=== PATIENT | male | born 1955 | race Caucasian/White ===

== ENCOUNTER 2018-04-04 11:06 | Observation (INO) | payer MEDICARE ==
[2018-04-04 14:03] LABS: Hematocrit 38.6 % (42-50); Hemoglobin 12.7 gm/dl (12.5-18.0); Mean Cell Volume 90.2 fl (78-100); Mean Corpuscular Hemoglobin 29.7 pg (26-32); Mean Corpuscular Hgb Concent. 32.9 g/dl (32-36); Mean Platelet Volume 10.2 fl (6-9.5); Platelet Count 238 K/mm3 (150-450); Red Blood Count 4.28 M/mm3 (4.1-5.6); White Blood Count 8.5 K/mm3 (4.0-10.5)
[2018-04-04] MEDS: PROVENTIL 2.5 MG/3 ML NEB IH SCH ×2 (14:04→19:43)
--- NOTE | 2018-04-04 14:12 | XRAY ---
Indication: COPD. Comparison: October 08, 2015. PA/lateral chest again hyperinflated without focal infiltrate, consolidation, or large effusion. Heart is not enlarged again with CABG surgery. Bony thorax intact again with mild degenerative changes. Impression: Stable nonacute hyperinflated chest with chronic features.
[2018-04-04 14:47] LABS: ALBUMIN 4.4 g/dL (3.5-5.0); ANION GAP 13.2 MEQ/L (5-15); BILIRUBIN,TOTAL 0.5 mg/dL (0.2-1.3); Calcium 9.1 mg/dL (8.4-10.2); Creatinine 1 1.4 mg/dL (0.66-1.25); Potassium 4.1 mmol/L (3.5-5.1); Total Protein 7.1 g/dL (6.3-8.2)
[2018-04-04] MEDS ORDERED: Sodium Chloride 0.9% 1000 ML 1,000 ML IV SCH (15:30)
[2018-04-04] MEDS ORDERED: NovoLOG Insulin SQ PRN (15:30)
--- NOTE | 2018-04-04 15:34 | PCM.HP.ADD ---
Addendum to History & Physical - History & Physical Addendum Addendum to History & Physical: This certifies that the History & Physical in the electronic chart reflects the current health status of the patient. If there are changes in the H&P these changes/exceptions are listed as follows.
[2018-04-04] MEDS: ENOXAPARIN SODIUM SQ SCH (15:57)
[2018-04-04] MEDS: Levaquin 250MG/50ML D5W 250 MG/50 ML BAG IV SCH (15:57)
[2018-04-04] MEDS ORDERED: Nitrostat 0.4 MG Tablet SL PRN (16:45)
[2018-04-04] MEDS ORDERED: MEDICATION INTERVENTION MC SCH (17:00)
[2018-04-04] MEDS ORDERED: MEDICATION INTERVENTION PO SCH (17:00)
[2018-04-04] MEDS: DUONEB 0.5-3 MG/3 ml Neb IH SCH (19:47)
[2018-04-04] MEDS: solu-MEDROL 40 MG IV SCH (21:13)
[2018-04-04] MEDS: Ranexa 500 MG PO SCH (21:13)
[2018-04-04] MEDS ORDERED: NON-FORMULARY ITEM (Ticagrelor [Brilinta] 90 MG) PO SCH (22:00)
[2018-04-05] MEDS: PROVENTIL 2.5 MG/3 ML NEB IH SCH ×2 (01:13→07:35)
[2018-04-05] MEDS: DUONEB 0.5-3 MG/3 ml Neb IH SCH (01:25)
[2018-04-05] MEDS: solu-MEDROL 40 MG IV SCH (09:05)
[2018-04-05] MEDS: Ranexa 500 MG PO SCH (09:05)
[2018-04-05] MEDS: ENOXAPARIN SODIUM SQ SCH (09:07)
[2018-04-05] MEDS: Levaquin 250MG/50ML D5W 250 MG/50 ML BAG IV SCH (09:07)
[2018-04-05] MEDS ORDERED: Imdur 30 MG PO SCH (10:00)
[2018-04-05] MEDS ORDERED: ZOCOR 20MG PO SCH (10:00)
[2018-04-05] MEDS ORDERED: NON-FORMULARY ITEM (Lisinopril [Zestril] 40 MG) PO SCH (10:00)
[2018-04-05] MEDS ORDERED: Tricor 145 MG PO SCH (10:00)
[2018-04-05] MEDS ORDERED: FENOFIBRATE 50 MG PO SCH (10:00)
[2018-04-05] MEDS ORDERED: ECOTRIN 81 MG PO SCH (10:00)
[2018-04-05] MEDS ORDERED: NON-FORMULARY ITEM (Umeclidinium Brm/Vilanterol Tr [Anoro Ellipta 62.5-25 Mcg Inh] 1 EACH) IH SCH (10:00)
[2018-04-05] MEDS ORDERED: NON-FORMULARY ITEM (Amlodipine Besylate 10 Mg [Norvasc 10 Mg] 10 MG) PO SCH (10:00)
[2018-04-05] MEDS ORDERED: Zestril 20 MG PO SCH (10:00)
[2018-04-05] MEDS ORDERED: NORVASC 5 MG PO SCH (10:00)
[2018-04-05] MEDS ORDERED: NON-FORMULARY ITEM (Aspirin [Aspirin] 81 MG) PO SCH (10:00)
[2018-04-05] MEDS ORDERED: LASIX 20 MG PO SCH (10:00)
[2018-04-05] MEDS ORDERED: NON-FORMULARY ITEM (Atorvastatin Calcium [Lipitor] 80 MG) PO SCH (10:00)
[2018-04-05] MEDS ORDERED: ZOLOFT 50 MG TABLET PO SCH (10:00)
[2018-04-05 11:30] VITALS: BP 151/68; PULSE 73; O2SAT 95
--- NOTE | 2018-04-05 18:00 | PCM.SSS ---
History of Present Illness - Chief Complaint Chief Complaint: worsening shortness of breath for 2 days History of Present Illness: is a 63 year old male.admitted with worsening shortness of breath and wheezing for 1-2 days. - Review of Systems Constitutional: No Fever, No Chills Eyes: No Symptoms Ears, Nose, & Throat: No Symptoms Respiratory: Cough, Orthopnea, Short Of Breath, Wheezing Cardiac: No Chest Pain, No Edema, No Syncope Abdominal/Gastrointestinal: No Abdominal Pain, No Nausea, No Vomiting, No Diarrhea Genitourinary Symptoms: No Dysuria Musculoskeletal: No Back Pain, No Neck Pain Skin: No Rash Neurological: No Dizziness, No Focal Weakness, No Sensory Changes Psychological: No Symptoms Endocrine: No Symptoms Hematologic/Lymphatic: No Symptoms Immunological/Allergic: No Symptoms Medications & Allergies Home Medications: Home Medication List Amlodipine Besylate 10 mg [Norvasc 10 MG] 10 mg PO DAILY 10/08/15 [History Confirmed 04/04/18] Isosorbide Mononitrate 30 mg [Imdur 30 MG] 30 mg PO DAILY 10/08/15 [ History Confirmed 04/04/18] Aspirin 81 mg PO DAILY 10/09/15 [History Confirmed 04/04/18] Atorvastatin Calcium [Lipitor] 80 mg PO DAILY 10/09/15 [History Confirmed ] Lisinopril [Zestril] 40 mg PO DAILY 10/09/15 [History Confirmed 04/04/18] Nitroglycerin [Nitrostat] 0.4 mg SL UD 10/09/15 [History Confirmed 04/04/18] Albuterol 2.5 mg/0.5 ml [PROVENTIL Solution 2.5 MG/0.5 ML] 2.5 mg IH Q12H PRN PRN 04/04/18 [History Confirmed 04/04/18] Fenofibrate 50 mg PO DAILY 04/04/18 [History Confirmed 04/04/18] Furosemide 20 mg [Lasix 20 mg] 20 mg PO DAILY 04/04/18 [History Confirmed 04/04/18] Ranolazine 500 MG [Ranexa 500 MG] 500 mg PO BID 04/04/18 [History Confirmed 04/04/18] Sertraline HCl 50 mg [Zoloft 50 mg Tablet] 50 mg PO DAILY 04/04/18 [History Confirmed 04/04/18] Ticagrelor [Brilinta] 90 mg PO BID 04/04/18 [History Confirmed 04/04/18] Umeclidinium Brm/Vilanterol Tr [Anoro Ellipta 62.5-25 Mcg INH] 1 each IH DAILY 04/04/18 [History Confirmed 04/04/18] Blood Sugar Diagnostic [Test Strips] 1 each MC DAILY #30 strip 04/05/18 [Rx] Blood-Glucose Meter, Drum-Type [Accu-Chek] 1 each MC DAILY #1 kit 04/05/18 [Rx] Lancets 1 each MC DAILY #30 each 04/05/18 [Rx] Levofloxacin [Levaquin] 250 mg PO DAILY #5 tablet 04/05/18 [Rx] Metformin HCl [Metformin HCl ER] 500 mg PO DAILY #30 tab.er.24 04/05/18 [Rx] Methylprednisolone Packet [Medrol Dosepack] 4 mg PO UD #30 packet [Rx] Allergies/Adverse Reactions: Allergies Allergy/AdvReac Type Severity Reaction Status Date / Time ceftriaxone [From Rocephin] Allergy Severe Anaphylactic Verified 04/04/18 13:32 Reaction Penicillins Allergy Unknown Verified 10/08/15 16:01 - Past Medical History Past Medical History: No Neurological History: No Pertinent History ENT History: No Pertinent History Cardiac History: Congestive Heart Failure, Coronary Artery Disease Respiratory History: CHF, COPD Endocrine Medical History: No Pertinent History, Diabetes Type II Musculoskelatal History: No Pertinent History GI Medical History: No Pertinent History History: No Pertinent History Pyscho-Social History: Anxiety, Depression Male Reproductive Disorders: No Pertinent History - Past Surgical History Past Surgical History: Yes (heart surgery 2006) Neuro Surgical History: No Pertinent History Cardiac History: No Pertinent History Respiratory Surgery: No Pertinent History GI Surgical History: No Pertinent History Genitourinary Surgical Hx: No Pertinent History Musculskeletal Surgical Hx: No Pertinent History Male Surgical History: No Pertinent History Other Surgical History: stents in both legs - Social History Smoking Status: Former smoker How long have you smoked: 40 years Exposure to second hand smoke: Yes Alcohol: None Drug Use: none - Physical Exam Vital Signs: Vital Signs - 24 hr Temp Pulse Resp BP Pulse Ox 04/05/18 12:00 18 04/05/18 11:28 98.2 F 73 18 151/68 95 04/05/18 08:00 18 04/05/18 07:35 67 18 94 L 04/05/18 07:10 97.9 F 67 18 150/72 94 L 04/05/18 04:00 98.4 F 71 24 142/63 94 L 04/05/18 03:57 24 04/05/18 01:13 68 16 90 L 04/05/18 00:00 98.6 F 76 20 149/77 93 L 04/04/18 20:00 97.9 F 66 20 144/72 97 04/04/18 19:43 66 18 96 Oxygen-Last 24 hours O2 Percentage 2 Liters = 28% General Appearance: no apparent distress, alert Neurologic Exam: alert, oriented x 3, cooperative, normal mood/affect, nml cerebellar function, nml station & gait, sensation nml, No motor deficits Eye Exam: PERRL/EOMI, eyes nml inspection Ears, Nose, Throat Exam: normal ENT inspection, TMs normal, pharynx normal, moist mucous membranes Neck Exam: normal inspection, non-tender, supple, full range of motion Respiratory Exam: respiratory distress, crackles/rales, rhonchi, wheezing Cardiovascular Exam: regular rate/rhythm, normal heart sounds, normal peripheral pulses Gastrointestinal/Abdomen Exam: soft, normal bowel sounds, No tenderness, No mass Back Exam: normal inspection, normal range of motion, No CVA tenderness, No vertebral tenderness Extremity Exam: normal inspection, normal range of motion, pelvis stable Skin Exam: normal color, warm, dry, No rash Lymphatic Exam: No adenopathy Results - Labs Lab/Micro Results: Accuchecks Date 04/05/18 Date 04/05/18 Date 04/04/18 Time 11:30 Time 07:30 Time 21:30 Accucheck Value: 229 Accucheck Value: 201 Accucheck Value: 173 Accuchecks Date 04/05/18 Date 04/05/18 Date 04/04/18 Time 11:30 Time 07:30 Time 21:30 Accucheck Value: 229 Accucheck Value: 201 Accucheck Value: 173 - Radiology Impressions Radiology Exams & Impressions: Radiology Procedures Category Date Time Status CHEST 2 VIEWS (PA AND LAT) Stat Exams 04/04/18 13:55 Completed Assessment/Plan (1) Acute exacerbation of chronic obstructive pulmonary disease (COPD) Status: Acute Assessment & Plan: Chief Complaint Diagnosis worsening shortness of breath for 2 days Allergies Allergy/AdvReac Type Severity Reaction Status Date / Time ceftriaxone [From Rocephin] Allergy Severe Anaphylactic Verified 04/04/18 13:32 Reaction Penicillins Allergy Unknown Verified 10/08/15 16:01 Vital Signs (Last 24 hours) Temp Pulse Resp BP Pulse Ox 04/05/18 12:00 18 04/05/18 11:28 98.2 F 73 18 151/68 95 04/05/18 08:00 18 04/05/18 07:35 67 18 94 L 04/05/18 07:10 97.9 F 67 18 150/72 94 L 04/05/18 04:00 98.4 F 71 24 142/63 94 L 04/05/18 03:57 24 04/05/18 01:13 68 16 90 L 04/05/18 00:00 98.6 F 76 20 149/77 93 L 04/04/18 20:00 97.9 F 66 20 144/72 97 04/04/18 19:43 66 18 96 Home Medications Medication Instructions Recorded Confirmed Last Taken Type Albuterol 2.5 mg/0.5 ml 2.5 mg IH Q12H PRN PRN 04/04/18 04/04/18 04/04/18 08: 00 History [PROVENTIL Solution 2.5 MG/0.5 ML] Fenofibrate 50 mg PO DAILY 04/04/18 04/04/18 04/04/18 08:00 History Furosemide 20 mg [Lasix 20 20 mg PO DAILY 04/04/18 04/04/18 04/04/18 08:00 History mg] Ranolazine 500 MG [Ranexa 500 500 mg PO BID 04/04/18 04/04/18 04/04/18 08:00 History MG] Sertraline HCl 50 mg [Zoloft 50 50 mg PO DAILY 04/04/18 04/04/18 04/04/18 08: 00 History mg Tablet] Ticagrelor [Brilinta] 90 mg PO BID 04/04/18 04/04/18 04/04/18 08:00 History Umeclidinium Brm/Vilanterol Tr 1 each DAILY 04/04/18 04/04/18 04/04/18 08:00 History [Anoro Ellipta 62.5-25 Mcg INH] Blood Sugar Diagnostic [Test 1 each DAILY #30 strip 04/05/18 Unknown Rx Strips] Blood-Glucose Meter, Drum-Type 1 each DAILY #1 kit 04/05/18 Unknown Rx [Accu-Chek] Lancets 1 each DAILY #30 each 04/05/18 Unknown Rx Levofloxacin [Levaquin] 250 mg PO DAILY #5 tablet 04/05/18 Unknown Rx Metformin HCl [Metformin HCl ER] 500 mg PO DAILY #30 tab.er.24 04/05/18 Unknown Rx Methylprednisolone Packet 4 mg PO UD #30 packet 04/05/18 Unknown Rx [Medrol Dosepack] Current Medications Discontinued Medications Generic Name Dose Route Start Last Admin Trade Name Coryq PRN Reason Stop Dose Admin Albuterol Sulfate 2.5 mg 04/04/18 13:00 04/05/18 07:35 Proventil 2.5 Mg/3 Ml Neb IH 05/04/18 12:59 2.5 mg Q6HRT CHINO Administration Albuterol/Ipratropium 3 ml 04/04/18 19:00 04/05/18 01:25 Duoneb 0.5-3 Mg/3 Ml Neb IH 05/04/18 18:59 Not Given Q6HRT CHINO Amlodipine Besylate 10 mg 04/05/18 10:00 04/05/18 09:06 Norvasc 5 Mg PO 05/05/18 09:59 10 mg DAILY CHINO Administration Aspirin 81 mg 04/05/18 10:00 04/05/18 09:06 Ecotrin 81 Mg PO 05/05/18 09:59 81 mg DAILY CHINO Administration Enoxaparin Sodium 40 mg 04/04/18 16:00 04/05/18 09:07 Enoxaparin Sodium SQ 05/04/18 15:59 40 mg DAILY CHINO Administration Fenofibrate 72.5 mg 04/05/18 10:00 04/05/18 09:06 Tricor 145 Mg PO 05/05/18 09:59 72.5 mg DAILY CHINO Administration Furosemide 20 mg 04/05/18 10:00 04/05/18 09:06 Lasix 20 Mg PO 05/05/18 09:59 20 mg DAILY CHINO Administration Levofloxacin/Dextrose 250 mg in 50 mls @ 50 mls/hr 04/04/18 16:00 04/05/18 09 :07 Levaquin 250mg/50ml D5w IV 05/04/18 15:59 50 mls/hr Q24H10 CHINO Administration Sodium Chloride 1,000 mls @ 50 mls/hr 04/04/18 15:30 04/04/18 15:57 Sodium Chloride 0.9% 1000 Ml IV 05/04/18 15:29 50 mls/hr .Q20H CHINO Administration Insulin Aspart 0 unit 04/04/18 15:30 Novolog Insulin SQ 05/04/18 15:29 UD PRN Accuchek Isosorbide Mononitrate 30 mg 04/05/18 10:00 04/05/18 09:06 Imdur 30 Mg PO 05/05/18 09:59 30 mg DAILY CHINO Administration Lisinopril 40 mg 04/05/18 10:00 04/05/18 09:07 Zestril 20 Mg PO 05/05/18 09:59 40 mg DAILY CHINO Administration Methylprednisolone Sodium Succinate 40 mg 04/04/18 22:00 04/05/18 09:05 Solu-Medrol 40 Mg IV 05/04/18 21:59 40 mg QID CHINO Administration Miscellaneous Information 1 each 04/04/18 17:00 Medication Intervention PO 05/04/18 16:59 .RN TO CHECK ON CHINO Miscellaneous Information 1 each 04/04/18 17:00 Medication Intervention MC 05/04/18 16:59 .RT TO CHECK ON CHINO Nitroglycerin 0.4 mg 04/04/18 16:45 Nitrostat 0.4 Mg Tablet SL 05/04/18 16:44 UD PRN Ranolazine 500 mg 04/04/18 22:00 04/05/18 09:05 Ranexa 500 Mg PO 05/04/18 21:59 500 mg BID CHINO Administration Sertraline HCl 50 mg 04/05/18 10:00 04/05/18 09:06 Zoloft 50 Mg Tablet PO 05/05/18 09:59 50 mg DAILY CHINO Administration Simvastatin 80 mg 04/05/18 10:00 04/05/18 09:06 Zocor 20mg PO 05/05/18 09:59 80 mg DAILY CHINO Administration Intake & Output (Last 24 hours) 04/03/18 04/04/18 04/05/18 04/06/18 11:59 11:59 11:59 11:59 Intake Total 2473 Balance 2473 Weight 105.3 kg Orders (Last 24 hours) Category Date Time Status Discharge Routine Discharge 04/05/18 Ordered Albuterol/Ipratropium 3ml Neb* [DUONEB 0.5-3 MG/3 ml Med 04/04/18 19:00 Discontinued Neb] 3 ml IH Q6HRT Amlodipine Besylate 5 mg [Norvasc 5 mg] Med 04/05/18 10:00 Discontinued 10 mg PO DAILY Aspirin EC 81 mg [Ecotrin 81 mg] Med 04/05/18 10:00 Discontinued 81 mg PO DAILY Fenofibrate,Micronized 145 mg* [Tricor 145 MG] Med 04/05/18 10:00 Discontinued 72.5 mg PO DAILY Furosemide 20 mg [Lasix 20 mg] Med 04/05/18 10:00 Discontinued 20 mg PO DAILY Isosorbide Mononitrate 30 mg [Imdur 30 MG] Med 04/05/18 10:00 Discontinued 30 mg PO DAILY Lisinopril 20 mg [Zestril 20 MG] Med 04/05/18 10:00 Discontinued 40 mg PO DAILY Methylprednisolone Sod Suc 40M [solu-MEDROL 40 MG] Med 04/04/18 22:00 Discontinued 40 mg IV QID Ranolazine 500 MG [Ranexa 500 MG] Med 04/04/18 22:00 Discontinued 500 mg PO BID Sertraline HCl 50 mg [Zoloft 50 mg Tablet] Med 04/05/18 10:00 Discontinued 50 mg PO DAILY Simvastatin 20Mg [Zocor 20Mg] Med 04/05/18 10:00 Discontinued 80 mg PO DAILY Patient Care Notes (Last 24 hours) 04/05/18 08:20 (created 04/05/18 15:27) Case Management Note by Olga Wills VISITED WITH PT AND REVIEWED DISCHARGE PLAN, CONTINUES TO DECLINE NEEDS FOR DISCHARGE. INDEPENDENT WITH ALL ADL'S. HAS FAMILY AT HOME TO ASSIST IF NEEDED. WILL FOLLOW FOR ALL DC NEEDS. Initialized on 04/05/18 15:27 - END OF NOTE Code(s): J44.1 - CHRONIC OBSTRUCTIVE PULMONARY DISEASE W (ACUTE) EXACERBATION (2) CAD (coronary artery disease) Status: Chronic Qualifiers: Coronary Disease-Associated Artery/Lesion type: [place] artery Code(s): I25.10 - ATHSCL HEART DISEASE OF [place] CORONARY ARTERY W/O ANG PCTRS (3) HTN (hypertension) Status: Chronic Code(s): I10 - ESSENTIAL (PRIMARY) HYPERTENSION (4) New onset type 2 diabetes mellitus Status: Acute Code(s): E11.9 - TYPE 2 DIABETES MELLITUS WITHOUT COMPLICATIONS Hospital Summary - Hospital Course Hospital Course: Last Vital Signs Temp 98.2 F 04/05/18 11:28 Pulse 73 04/05/18 11:28 Resp 18 04/05/18 12:00 BP 151/68 04/05/18 11:28 Pulse Ox 95 04/05/18 11:28 Allergies ceftriaxone [From Rocephin] Allergy (Severe, Verified 04/04/18 13:32) Anaphylactic Reaction Penicillins Allergy (Unknown, Verified 10/08/15 16:01) Intake & Output 04/05/18 04/06/18 11:59 11:59 Intake Total 2473 Balance 2473 Weight 105.3 kg Orders 04/05/18 Discharge Routine - Vitals & Intake/Output Vital Signs: Vital Signs Temperature 98.2 F 04/05/18 11:28 Pulse Rate 73 04/05/18 11:28 Respiratory Rate 18 04/05/18 12:00 Blood Pressure 151/68 04/05/18 11:28 O2 Sat by Pulse Oximetry 95 04/05/18 11:28 Oxygen-Last Documented O2 Percentage 2 Liters = 28% Intake & Output: Intake & Output 04/03/18 04/04/18 04/05/18 04/06/18 11:59 11:59 11:59 11:59 Intake Total 2473 Balance 2473 Weight 105.3 kg - Lab Result Diagrams: 04/04/18 13:50 04/04/18 13:50 Lab Results-Last 24 Hrs: Accuchecks Date 04/05/18 Date 04/05/18 Date 04/04/18 Time 11:30 Time 07:30 Time 21:30 Accucheck Value: 229 Accucheck Value: 201 Accucheck Value: 173 Micro Results-Entire Visit: Accuchecks Date 04/05/18 Date 04/05/18 Date 04/04/18 Time 11:30 Time 07:30 Time 21:30 Accucheck Value: 229 Accucheck Value: 201 Accucheck Value: 173 - Radiology Exams Ordered Rad Exams-Entire Visit: Radiology Procedures Category Date Time Status CHEST 2 VIEWS (PA AND LAT) Stat Exams 04/04/18 13:55 Completed - Procedures and Test Procedures and Tests throughout Hospitalization: Therapy Orders & Screens 04/04/18 13:00 RT Screen per Nursing Assess ONCE Comment: Protocol Order Physician Instructions: Greater than 3 points order RT Admission Screen Reason For Exam: Triggered on Admission Diagnosis: COPD exacerbation Diagnosis: COPD exacerbation Respiratory Nebulizer Q6H Comment: albuterol q6 Diagnosis: COPD exacerbation 04/04/18 14:12 Oxygen NASAL CANNULA 2 lpm Comment: Diagnosis: COPD exacerbation 04/04/18 15:30 Respiratory Therapy Consult ROUTINE Comment: Reason For Exam: Diagnosis: COPD exacerbation - Discharge Discharge Date: 04/05/18 Disposition: Home, Self-Care Condition: Good Prescriptions: New Blood-Glucose Meter, Drum-Type [Accu-Chek] 1 each DAILY #1 kit Lancets 1 each MC DAILY #30 each Levofloxacin [Levaquin] 250 mg PO DAILY #5 tablet Methylprednisolone Packet [Medrol Dosepack] 4 mg PO UD #30 packet Metformin HCl [Metformin HCl ER] 500 mg PO DAILY #30 tab.er.24 Blood Sugar Diagnostic [Test Strips] 1 each MC DAILY #30 strip Continue Amlodipine Besylate 10 mg [Norvasc 10 MG] 10 mg PO DAILY Isosorbide Mononitrate 30 mg [Imdur 30 MG] 30 mg PO DAILY Aspirin 81 mg PO DAILY Lisinopril [Zestril] 40 mg PO DAILY Atorvastatin Calcium [Lipitor] 80 mg PO DAILY Nitroglycerin [Nitrostat] 0.4 mg SL UD Ranolazine 500 MG [Ranexa 500 MG] 500 mg PO BID Umeclidinium Brm/Vilanterol Tr [Anoro Ellipta 62.5-25 Mcg INH] 1 each IH DAILY Ticagrelor [Brilinta] 90 mg PO BID Sertraline HCl 50 mg [Zoloft 50 mg Tablet] 50 mg PO DAILY Furosemide 20 mg [Lasix 20 mg] 20 mg PO DAILY Fenofibrate 50 mg PO DAILY Albuterol 2.5 mg/0.5 ml [PROVENTIL Solution 2.5 MG/0.5 ML] 2.5 mg IH Q12H PRN PRN PRN Reason: Shortness Of Breath/Wheezing Instructions: Carbohydrate Counting Diet, Blood Glucose Monitoring, Diabetes Type 2 (DC), Exacerbation of COPD (DC) Additional Instructions: MONITOR YOUR BLOOD SUGAR DAILY, TAKE AT VARIOUS TIMES OF THE DAY RECORD YOUR ACCU CHECK VALUE AND KEEP A RECORD - BRING TO YOUR FOLLOWUP APPT. Follow up with: BREANNE CORTEZ [Primary Care Provider] - 04/12/18 3:00 pm ([facility]) Forms: Discharge Instructions
== END 2018-04-05 12:25 | disposition home or self-care (01) ==
LOC: MED SURG 12:32
PROVIDERS: ADMIT General Practice; ATTEND General Practice
DX: J44.1 Chronic obstructive pulmonary disease with (acute) exacerbation (principal); I25.10 Atherosclerotic heart disease of native coronary artery without angina pectoris; I10 Essential (primary) hypertension; E11.9 Type 2 diabetes mellitus without complications; Z79.899 Other long term (current) drug therapy
CPT/HCPCS: 36415; 71046; 80053; 83036; 83880; 85027; 94150; 94640; 94760; G0378; J7609; J1650; J1956; J2920; A9270-GY

== ENCOUNTER 2018-10-18 10:13 | Emergency (ER) | payer MEDICARE ==
[2018-10-18 10:46] LABS: BASOPHIL % 0.3 % (0.0-0.4); Basophil (Absolute #) 0.02 (0-0.4); Eosinophil % 4.9 % (0.00-5.0); Eosinophil (Absolute #) 0.34 (0-0.5); Granulocytes % 62.8 % (36.0-66.0); Hematocrit 35.9 % (42-50); Hemoglobin 11.3 gm/dl (12.5-18.0); Lymphocyte (Absolute #) 1.48 (1.0-4.6); Lymphocytes % 21.1 % (24.0-44.0); Mean Cell Volume 94.7 fl (78-100); Mean Corpuscular Hemoglobin 29.8 pg (26-32); Mean Corpuscular Hgb Concent. 31.5 g/dl (32-36); Mean Platelet Volume 10.6 fl (6-9.5); Monocyte (Absolute #) 0.76 (0.0-1.3); Monocytes % 10.9 % (0.0-12.0); Platelet Count 218 K/mm3 (150-450); Red Blood Count 3.79 M/mm3 (4.1-5.6); Red Cell Distribution Width 15.9 % (11.5-14.0)
[2018-10-18 10:53] LABS: INR 1.13 (0.8-3.0); PROTIME 13.2 SECONDS (8.83-12.87)
[2018-10-18] MEDS ORDERED: Ranexa 500 MG PO STA (10:56)
--- NOTE | 2018-10-18 10:56 | XRAY ---
Indication: Chest pain. Comparison: April 04, 2018. PA/lateral chest remains hyperinflated and clear. Heart is not enlarged again with CABG surgery. Bony thorax intact again with mild degenerative changes. Impression: Stable nonacute hyperinflated chest with chronic features.
[2018-10-18 11:07] LABS: ALBUMIN 3.9 g/dL (3.5-5.0); ALKALINE PHOSPHATASE 66 U/L (38-126); ANION GAP 14.1 MEQ/L (5-15); BLOOD UREA NITROGEN 12 mg/dL (9-20); CHLORIDE 112 mmol/L (98-107); Carbon Dioxide 22 mmol/L (22-30); Creatinine 1 1.21 mg/dL (0.66-1.25); Glucose 107 mg/dL (74-106); NT PRO BNP 235 pg/mL (0-900); Potassium 3.8 mmol/L (3.5-5.1); SGOT/AST 23 U/L (17-59); SGPT/ALT 39 U/L (0-50); SODIUM 144 mmol/L (137-145); Total Protein 6.5 g/dL (6.3-8.2)
[2018-10-18] MEDS ORDERED: Effient 10 MG TABLET PO ONE (11:19)
[2018-10-18] MEDS ORDERED: Effient 10 MG TABLET ONE (11:26)
[2018-10-18] MEDS ORDERED: PROVENTIL 2.5 MG/3 ML NEB IH ONE ×2 (11:41→11:45)
--- NOTE | 2018-10-18 12:07 | XRAY ---
Indication: Short of breath. Elevated d-dimer. COPD. Multiple contiguous axial images obtained through the chest using 80 cc Isovue 370 contrast and PE protocol. Comparison: None There is satisfactory opacification of the pulmonary arteries to include the lobar and segmental branches. However respiration artifact limits evaluation of the more distal lobar and segmental branches. No central pulmonary embolus. Heart is not enlarged and demonstrates CABG surgery. Aorta demonstrates minimal calcifications without aneurysm/dissection. No pathologic mediastinal/hilar lymphadenopathy. Examination of the lung parenchyma demonstrates minimal bilateral dependent atelectasis, minimal bilateral pleural thickening, minimal scattered fibrosis/scarring, and biapical subpleural cystic changes. No suspicious pulmonary mass, infiltrate, or effusion. Bony thorax intact with mild degenerative changes throughout the spine. Limited upper abdomen including adrenal glands unremarkable. Impression: 1. Pulmonary embolus evaluation limited by respiration artifact. No large central pulmonary embolus. 2. No acute cardiopulmonary abnormalities. 3. Chronic appearing fibrosis/scarring, pleural thickening, and biapical subpleural cystic changes. CT DI 32.88
--- NOTE | 2018-10-18 15:08 | ERPHSYRPT ---
- History of Present Illness Historian: patient, family Exam Limitations: no limitations Patient Subjective Stated Complaint: CHEST PAIN SINCE LAST NIGHT. WORSE WITH TAKING A DEEP BREATH. HX CABG AND STENTS AND COPD Triage Nursing Assessment: AMBULATED TO ROOM PER SELF. SKIN W/D, COLOR NORMAL, RESP NONLABORED. HEART TONES REGULAR. BREATH SOUNDS CLEAR. Physician History: Pt is a 63 y/o male with a h/o CABG and recent angio. Per pt and , pt has a vessel that is occluded, and angio is the only option that was done for him. Pt is taking Brilinta, and Ranexa, but he is not taking ASA, secondary to the Brilinta. Pt states, he woke up with chest pain that radiated to his back. He denies palpitations, or SOB. Pt did not get any of his meds today. Timing/Duration: today Activities at Onset: none Quality: pressure Location: substernal Chest Pain Radiation: back Severity of Pain-Max: moderate Severity of Pain-Current: mild Modifying Factors: Improves With: nothing Nitro Today/Relief: no nitro taken today Aspirin Treatment Today: no aspirin today Allergies/Adverse Reactions: ceftriaxone [From Rocephin] Allergy (Severe, Verified 10/18/18 10:43) Anaphylactic Reaction Penicillins Allergy (Unknown, Verified 10/18/18 10:43) Home Medications: Isosorbide Mononitrate 30 mg [Imdur 30 MG] 60 mg PO DAILY 10/08/15 [History ] Atorvastatin Calcium [Lipitor] 80 mg PO DAILY 10/09/15 [History] Lisinopril [Zestril] 20 mg PO DAILY 10/09/15 [History] Nitroglycerin [Nitrostat] 0.4 mg SL UD 10/09/15 [History] Albuterol 2.5 mg/0.5 ml [PROVENTIL Solution 2.5 MG/0.5 ML] 2.5 mg IH Q12H PRN PRN 04/04/18 [History] Fenofibrate 50 mg PO DAILY 04/04/18 [History] Ranolazine 500 MG [Ranexa 500 MG] 500 mg PO BID 04/04/18 [History] Ticagrelor [Brilinta] 90 mg PO BID 04/04/18 [History] Umeclidinium Brm/Vilanterol Tr [Anoro Ellipta 62.5-25 Mcg INH] 1 each IH DAILY 04/04/18 [History] Apixaban [Eliquis] 5 mg PO BID 10/18/18 [History] Benzonatate [Tessalon Perle] 100 mg PO TIDPRN 10/18/18 [History] Bumetanide 1 mg [Bumex 1 mg] 2 mg PO DAILY 10/18/18 [History] Glipizide 2.5 mg [Glucotrol Xl 2.5 MG] 2.5 mg PO DAILY 10/18/18 [History] Methylprednisolone Packet [Medrol Dosepack] 5 mg PO DAILY 10/18/18 [ History] Metoprolol Succinate 100 mg [Toprol Xl 100 MG] 300 mg PO DAILY 10/18/18 [ History] Tamsulosin HCl 0.4 mg [Flomax 0.4 MG] 0.4 mg PO DAILY 10/18/18 [History] Hx Tetanus, Diphtheria Vaccination/Date Given: No Hx Influenza Vaccination/Date Given: Yes Hx Pneumococcal Vaccination/Date Given: Yes Immunizations Up to Date: Yes - Review of Systems Constitutional: No Fever, No Chills Eyes: No Symptoms Ears, Nose, & Throat: No Symptoms Respiratory: No Cough, No Dyspnea Cardiac: Chest Pain, No Edema, No Syncope Abdominal/Gastrointestinal: No Abdominal Pain, No Nausea, No Vomiting, No Diarrhea Musculoskeletal: No Back Pain, No Neck Pain - Past Medical History Pertinent Past Medical History: Yes Neurological History: No Pertinent History ENT History: No Pertinent History Cardiac History: Congestive Heart Failure, Coronary Artery Disease, High Cholesterol, Hypertension, Myocardial Infarction ([place]) Respiratory History: CHF, COPD Endocrine Medical History: No Pertinent History, Diabetes Type II Musculoskeletal History: No Pertinent History GI Medical History: No Pertinent History History: No Pertinent History Psycho-Social History: Anxiety, Depression Male Reproductive Disorders: No Pertinent History - Past Surgical History Past Surgical History: Yes (heart surgery 2005) Neuro Surgical History: No Pertinent History Cardiac: No Pertinent History, CABG, Cardiac Catheterization, Cardiac Stent Respiratory: No Pertinent History Gastrointestinal: No Pertinent History Genitourinary: No Pertinent History Musculoskeletal: No Pertinent History Male Surgical History: No Pertinent History Other Surgical History: stents in both legs - Social History Smoking Status: Former smoker How long have you smoked: 40 years Exposure to second hand smoke: No Drug Use: none Patient Lives Alone: No - Nursing Vital Signs Nursing Vital Signs: Initial Vital Signs Temperature 99 F 10/18/18 10:15 Pulse Rate 68 10/18/18 10:15 Respiratory Rate 20 10/18/18 10:15 Blood Pressure 176/77 10/18/18 10:15 O2 Sat by Pulse Oximetry 96 10/18/18 10:15 Pain Scale Pain Intensity 3 - Physical Exam General Appearance: mild distress Eye Exam: PERRL/EOMI, eyes nml inspection Ears, Nose, Throat Exam: normal ENT inspection, moist mucous membranes Neck Exam: normal inspection, non-tender, supple, full range of motion Respiratory Exam: normal breath sounds, lungs clear, No respiratory distress Cardiovascular Exam: regular rate/rhythm, normal heart sounds Gastrointestinal/Abdomen Exam: soft, No tenderness, No mass Back Exam: normal inspection, No CVA tenderness, No vertebral tenderness Extremity Exam: normal inspection, normal range of motion SpO2: 100 - Course Nursing assessment & vital signs reviewed: Yes EKG Interpreted by Me: RATE (62bpm), Ischemic ST-T changes (old infarct) Ordered Tests: Active Orders 24 hr Category Date Time Status Sequencing Machine Operator STAT Care 10/18/18 10:26 Active EKG-ER Only STAT Care 10/18/18 10:25 Active IV Insertion STAT Care 10/18/18 10:25 Active Oxygen-ED Only Nasal Cannula 2 lpm Care 10/18/18 10:25 Active CHEST 2 VIEWS (PA AND LAT) Stat Exams 10/18/18 10:25 Completed CHEST WITH CONTRAST [CT] Stat Exams 10/18/18 11:07 Completed CBC W DIFF Stat Lab 10/18/18 10:50 Completed CMP Stat Lab 10/18/18 10:50 Completed D-DIMER QUANTITATION Stat Lab 10/18/18 10:50 Completed NT PRO BNP Stat Lab 10/18/18 10:50 Completed PROTIME WITH INR Stat Lab 10/18/18 10:50 Completed TROPONIN Q3H Lab 10/18/18 10:50 Completed TROPONIN Q3H Lab 10/18/18 13:45 Completed TROPONIN Q3H Lab 10/18/18 16:30 Ordered TROPONIN Q3H Lab 10/18/18 19:30 Ordered TROPONIN Q3H Lab 10/18/18 22:30 Ordered Peak Expiratory Flow Rate ONCE RT 10/18/18 12:11 Active Respiratory Therapy Assessment DAILY RT 10/18/18 12:11 Active Medication Summary Discontinued Medications Generic Name Dose Route Start Last Admin Trade Name Freq PRN Reason Stop Dose Admin Albuterol Sulfate 2.5 mg 10/18/18 11:41 10/18/18 11:47 Proventil 2.5 Mg/3 Ml Neb IH 10/18/18 11:42 2.5 mg STAT ONE Administration Albuterol Sulfate Confirm 10/18/18 11:45 Proventil 2.5 Mg/3 Ml Neb Administered 10/18/18 11:46 Dose 2.5 mg IH .STK-MED ONE Prasugrel 10 mg 10/18/18 11:19 10/18/18 11:27 Effient 10 Mg Tablet PO 10/18/18 11:20 10 mg STAT ONE Administration Prasugrel Confirm 10/18/18 11:26 Effient 10 Mg Tablet Administered 10/18/18 11:27 Dose 10 mg .ROUTE .STK-MED ONE Ranolazine 500 mg 10/18/18 10:56 10/18/18 11:28 Ranexa 500 Mg PO 10/18/18 10:57 500 mg ONCE STA Administration Lab/Rad Data: Laboratory Result Diagrams 10/18/18 10:50 10/18/18 10:50 Laboratory Results 10/18/18 10/18/18 10/18/18 Range/Units 13:45 10:50 10:50 WBC (4.0-10.5) K/mm3 RBC (4.1-5.6) M/mm3 Hgb (12.5-18.0) gm/dl Hct (42-50) % MCV (78-100) fl MCH (26-32) pg MCHC (32-36) g/dl RDW (11.5-14.0) % Plt Count (150-450) K/mm3 MPV (6-9.5) fl Gran % (36.0-66.0) % Eos # (Auto) (0-0.5) Absolute Lymphs (auto) (1.0-4.6) Absolute Monos (auto) (0.0-1.3) Lymphocytes % (24.0-44.0) % Monocytes % (0.0-12.0) % Eosinophils % (0.00-5.0) % Basophils % (0.0-0.4) % Absolute Granulocytes (1.4-6.9) Basophils # (0-0.4) PT 13.2 H (8.83-12.87) SECONDS INR 1.13 (0.8-3.0) D-Dimer 751 H* (215-500) ng/mL Sodium (137-145) mmol/L Potassium (3.5-5.1) mmol/L Chloride (98-107) mmol/L Carbon Dioxide (22-30) mmol/L Anion Gap (5-15) MEQ/L BUN (9-20) mg/dL Creatinine (0.66-1.25) mg/dL Estimated GFR ML/MIN Glucose (74-106) mg/dL Calcium (8.4-10.2) mg/dL Total Bilirubin (0.2-1.3) mg/dL AST (17-59) U/L ALT (0-50) U/L Alkaline Phosphatase (38-126) U/L Troponin I 0.016 0.013 (0.000-0.034) ng/mL NT-Pro-B Natriuret Pep (0-900) pg/mL Serum Total Protein (6.3-8.2) g/dL Albumin (3.5-5.0) g/dL 10/18/18 10/18/18 Range/Units 10:50 10:50 WBC 7.0 (4.0-10.5) K/mm3 RBC 3.79 L (4.1-5.6) M/mm3 Hgb 11.3 L (12.5-18.0) gm/dl Hct 35.9 L (42-50) % MCV 94.7 (78-100) fl MCH 29.8 (26-32) pg MCHC 31.5 L (32-36) g/dl RDW 15.9 H (11.5-14.0) % Plt Count 218 (150-450) K/mm3 MPV 10.6 H (6-9.5) fl Gran % 62.8 (36.0-66.0) % Eos # (Auto) 0.34 (0-0.5) Absolute Lymphs (auto) 1.48 (1.0-4.6) Absolute Monos (auto) 0.76 (0.0-1.3) Lymphocytes % 21.1 L (24.0-44.0) % Monocytes % 10.9 (0.0-12.0) % Eosinophils % 4.9 (0.00-5.0) % Basophils % 0.3 (0.0-0.4) % Absolute Granulocytes 4.40 (1.4-6.9) Basophils # 0.02 (0-0.4) PT (8.83-12.87) SECONDS INR (0.8-3.0) D-Dimer (215-500) ng/mL Sodium 144 (137-145) mmol/L Potassium 3.8 (3.5-5.1) mmol/L Chloride 112 H (98-107) mmol/L Carbon Dioxide 22 (22-30) mmol/L Anion Gap 14.1 (5-15) MEQ/L BUN 12 (9-20) mg/dL Creatinine 1.21 (0.66-1.25) mg/dL Estimated GFR > 60.0 ML/MIN Glucose 107 H (74-106) mg/dL Calcium 9.0 (8.4-10.2) mg/dL Total Bilirubin 0.50 (0.2-1.3) mg/dL AST 23 (17-59) U/L ALT 39 (0-50) U/L Alkaline Phosphatase 66 (38-126) U/L Troponin I (0.000-0.034) ng/mL NT-Pro-B Natriuret Pep 235 (0-900) pg/mL Serum Total Protein 6.5 (6.3-8.2) g/dL Albumin 3.9 (3.5-5.0) g/dL - Progress Progress: improved Air Movement: fair Progress Note: 10/18/18 15:14 Work up was done, and two troponins are negative. As D dimer was elevated CT for PE study was done, that showed no PE, no PNA, but did show chronic fibrosis. Pt is safe for d/c. Blood Culture(s) Obtained: No Antibiotics given: No Will see patient in: office Counseled pt/family regarding: need for follow-up - Departure Time of Disposition: 15:15 Departure Disposition: Home Clinical Impression: Chest pain Condition: Stable Critical Care Time: No Referrals: BREANNE CORTEZ [Primary Care Provider] - Additional Instructions: F/U with PCP this week. Be evaluated for home O2.
[2018-10-18 15:31] VITALS: BP 160/63; PULSE 78; O2SAT 97
== END 2018-10-18 15:32 | disposition home or self-care (01) ==
LOC: ED 10:13
DX: R07.9 Chest pain, unspecified (principal); Z95.1 Presence of aortocoronary bypass graft; Z98.61 Coronary angioplasty status; J44.9 Chronic obstructive pulmonary disease, unspecified; Z79.899 Other long term (current) drug therapy; I50.9 Heart failure, unspecified; E78.00 Pure hypercholesterolemia, unspecified; I10 Essential (primary) hypertension; I25.2 Old myocardial infarction; E11.9 Type 2 diabetes mellitus without complications
CPT/HCPCS: 36000; 36415; 71046; 71260; 80053; 83880; 84484; 85025; 85379; 85610; 93005; 93041; 94150; 94640; 99284; J7609; A9270-GY

== ENCOUNTER 2019-01-08 11:26 | Observation (INO) | payer MEDICARE ==
[2019-01-08] MEDS ORDERED: DUONEB 0.5-3 MG/3 ml Neb IH ONE ×2 (11:28→11:32)
[2019-01-08] MEDS ORDERED: solu-MEDROL 125 MG IV ONE (11:32)
[2019-01-08 11:44] LABS: Hematocrit 36.8 % (42-50); Hemoglobin 11.6 gm/dl (12.5-18.0); Mean Corpuscular Hgb Concent. 31.5 g/dl (32-36); Mean Platelet Volume 10.3 fl (6-9.5); Platelet Count 242 K/mm3 (150-450); Red Cell Distribution Width 16.7 % (11.5-14.0); White Blood Count 7.7 K/mm3 (4.0-10.5)
[2019-01-08] MEDS ORDERED: solu-MEDROL 125 MG ONE (11:50)
[2019-01-08] MEDS: Sodium Chloride 0.9% 1000 ML 1,000 ML IV SCH ×2 (11:54→23:17)
[2019-01-08 12:02] LABS: ALKALINE PHOSPHATASE 80 U/L (38-126); ANION GAP 16.4 MEQ/L (5-15); BLOOD UREA NITROGEN 10 mg/dL (9-20); CHLORIDE 102 mmol/L (98-107); Calcium 9.1 mg/dL (8.4-10.2); Carbon Dioxide 26 mmol/L (22-30); Glucose 166 mg/dL (74-106); NT PRO BNP 204 pg/mL (0-900); Potassium 3.5 mmol/L (3.5-5.1); SGOT/AST 35 U/L (17-59); SGPT/ALT 35 U/L (0-50); SODIUM 141 mmol/L (137-145); Total Protein 6.6 g/dL (6.3-8.2)
--- NOTE | 2019-01-08 12:08 | ERPHSYRPT ---
- History of Present Illness Time Seen by Provider: 01/08/19 12:06 Source: patient, family Exam Limitations: no limitations Patient Subjective Stated Complaint: increased sob over the past two days. has been using inhalers and neb tx's without relief. Triage Nursing Assessment: ambulated to room per self with obvious moderate resp distress. audible exp wheezes heard. skin w/d, color normal, resp labored. Physician History: Mr Phelan is a 63 years old male came to ER with c/o increased sob over the past two days. has been using inhalers and neb treatments without relief. Timing/Duration: day(s) (two days) Allergies/Adverse Reactions: ceftriaxone [From Rocephin] Allergy (Severe, Verified 10/18/18 10:43) Anaphylactic Reaction Penicillins Allergy (Unknown, Verified 10/18/18 10:43) Home Medications: Isosorbide Mononitrate 30 mg [Imdur 30 MG] 60 mg PO DAILY 10/08/15 [History ] Atorvastatin Calcium [Lipitor] 80 mg PO DAILY 10/09/15 [History] Lisinopril [Zestril] 20 mg PO DAILY 10/09/15 [History] Nitroglycerin [Nitrostat] 0.4 mg SL UD 10/09/15 [History] Albuterol 2.5 mg/0.5 ml [PROVENTIL Solution 2.5 MG/0.5 ML] 2.5 mg IH Q12H PRN PRN 04/04/18 [History] Fenofibrate 50 mg PO DAILY 04/04/18 [History] Ranolazine 500 MG [Ranexa 500 MG] 500 mg PO BID 04/04/18 [History] Ticagrelor [Brilinta] 90 mg PO BID 04/04/18 [History] Umeclidinium Brm/Vilanterol Tr [Anoro Ellipta 62.5-25 Mcg INH] 1 each IH DAILY 04/04/18 [History] Apixaban [Eliquis] 5 mg PO BID 10/18/18 [History] Benzonatate [Tessalon Perle] 100 mg PO TIDPRN 10/18/18 [History] Bumetanide 1 mg [Bumex 1 mg] 2 mg PO DAILY 10/18/18 [History] Glipizide 2.5 mg [Glucotrol Xl 2.5 MG] 2.5 mg PO DAILY 10/18/18 [History] Methylprednisolone Packet [Medrol Dosepack] 5 mg PO DAILY 10/18/18 [ History] Metoprolol Succinate 100 mg [Toprol Xl 100 MG] 300 mg PO DAILY 10/18/18 [ History] Tamsulosin HCl 0.4 mg [Flomax 0.4 MG] 0.4 mg PO DAILY 10/18/18 [History] Hx Tetanus, Diphtheria Vaccination/Date Given: Yes Hx Influenza Vaccination/Date Given: Yes Hx Pneumococcal Vaccination/Date Given: No - Review of Systems Constitutional: No Fever, No Chills Eyes: No Symptoms Ears, Nose, & Throat: No Symptoms Respiratory: Dyspnea, Dyspnea on Exertion (GONZALEZ), Wheezing, No Cough Cardiac: No Chest Pain, No Edema, No Syncope Abdominal/Gastrointestinal: No Abdominal Pain, No Nausea, No Vomiting, No Diarrhea Genitourinary Symptoms: No Dysuria Musculoskeletal: No Back Pain, No Neck Pain Skin: No Rash Neurological: No Dizziness, No Focal Weakness, No Sensory Changes Psychological: No Symptoms Endocrine: No Symptoms All Other Systems: Reviewed and Negative - Past Medical History Pertinent Past Medical History: Yes Neurological History: No Pertinent History ENT History: No Pertinent History Cardiac History: Congestive Heart Failure, Coronary Artery Disease, High Cholesterol, Hypertension, Myocardial Infarction ([place]) Respiratory History: CHF, COPD Endocrine Medical History: No Pertinent History, Diabetes Type II Musculoskeletal History: No Pertinent History GI Medical History: No Pertinent History History: No Pertinent History Psycho-Social History: Anxiety, Depression Male Reproductive Disorders: No Pertinent History - Past Surgical History Past Surgical History: Yes (heart surgery 2006) Neuro Surgical History: No Pertinent History Cardiac: No Pertinent History, CABG, Cardiac Catheterization, Cardiac Stent Respiratory: No Pertinent History Gastrointestinal: No Pertinent History Genitourinary: No Pertinent History Musculoskeletal: No Pertinent History Male Surgical History: No Pertinent History Other Surgical History: stents in both legs - Social History Smoking Status: Former smoker How long have you smoked: 40 years Exposure to second hand smoke: Yes Drug Use: none Patient Lives Alone: No - Nursing Vital Signs Nursing Vital Signs: Initial Vital Signs Temperature 98.6 F 05/05/19 11:37 Pulse Rate 79 01/08/19 11:37 Respiratory Rate 28 H 01/08/19 11:37 Blood Pressure 183/64 01/08/19 11:37 O2 Sat by Pulse Oximetry 93 L 01/08/19 11:37 Pain Scale Pain Intensity 0 - Physical Exam General Appearance: moderate distress, alert Eye Exam: PERRL/EOMI Neck Exam: normal inspection, supple Respiratory Exam: diminished breath sounds, accessory muscle use, crackles/rales , rhonchi, wheezing Cardiovascular/Chest Exam: normal heart sounds, regular rate/rhythm Abdominal/Gastrointestinal Exam: soft, No tenderness, No distention, No mass Extremity Exam: non-tender, normal range of motion, normal inspection, no calf tenderness, no pedal edema Neurologic Exam: alert, oriented x 3, cooperative, rebrander II-XII nml as tested, sensation nml, No motor deficits Skin Exam: normal color, warm, No dry SpO2 Interpretation: borderline oxygenation SpO2: 96 - Course Nursing assessment & vital signs reviewed: Yes EKG Interpreted by Me: Sinus Rhythm - Radiology Exams Chest X-ray Interpretation: Reviewed by me (COPD changes) Ordered Tests: Active Orders 24 hr Category Date Time Status CO2 Monitoring STAT Care 01/08/19 11:32 Completed Merchandising Stock Associate STAT Care 01/08/19 11:33 Active EKG-ER Only STAT Care 01/08/19 11:32 Active Oxygen-ED Only Nasal Cannula 3 lpm Care 01/08/19 11:32 Active CHEST 1 VIEW (PORTABLE) Stat Exams 01/08/19 11:33 Taken CBC W DIFF Stat Lab 01/08/19 11:30 Completed CMP Stat Lab 01/08/19 11:30 Completed Manual Differential NC Stat Lab 01/08/19 11:30 Completed NT PRO BNP Stat Lab 01/08/19 11:30 Completed TROPONIN Q3H Lab 01/08/19 11:30 Completed TROPONIN Q3H Lab 01/08/19 14:45 Ordered TROPONIN Q3H Lab 01/08/19 17:45 Ordered TROPONIN Q3H Lab 01/08/19 20:45 Ordered TROPONIN Q3H Lab 01/08/19 23:45 Ordered Respiratory Therapy Assessment DAILY RT 01/08/19 12:06 Completed Medication Summary Generic Name Dose Route Start Last Admin Trade Name Freq PRN Reason Stop Dose Admin Sodium Chloride 1,000 mls @ 100 mls/hr 01/08/19 11:45 01/08/19 11:54 Sodium Chloride 0.9% 1000 Ml IV 02/07/19 11:44 100 mls/hr .Q10H CHINO Administration Discontinued Medications Generic Name Dose Route Start Last Admin Trade Name Coryq PRN Reason Stop Dose Admin Albuterol/Ipratropium Confirm 01/08/19 11:28 Duoneb 0.5-3 Mg/3 Ml Neb Administered 01/08/19 11:29 Dose 3 ml IH .STK-MED ONE Albuterol/Ipratropium 3 ml 01/08/19 11:32 01/08/19 12:07 Duoneb 0.5-3 Mg/3 Ml Neb IH 01/08/19 11:33 3 ml STAT ONE Administration Methylprednisolone Sodium Succinate 80 mg 01/08/19 11:32 01/08/19 11:54 Solu-Medrol 125 Mg IV 01/08/19 11:33 80 mg STAT ONE Administration Methylprednisolone Sodium Succinate Confirm 01/08/19 11:50 Solu-Medrol 125 Mg Administered 01/08/19 11:51 Dose 125 mg .ROUTE .STK-MED ONE Lab/Rad Data: Laboratory Result Diagrams 01/08/19 11:30 01/08/19 11:30 Laboratory Results 01/08/19 01/08/19 01/08/19 Range/Units 11:30 11:30 11:30 WBC 7.7 (4.0-10.5) K/mm3 RBC 4.00 L (4.1-5.6) M/mm3 Hgb 11.6 L (12.5-18.0) gm/dl Hct 36.8 L (42-50) % MCV 92.0 (78-100) fl MCH 29.0 (26-32) pg MCHC 31.5 L (32-36) g/dl RDW 16.7 H (11.5-14.0) % Plt Count 242 (150-450) K/mm3 MPV 10.3 H (6-9.5) fl Sodium 141 (137-145) mmol/L Potassium 3.5 (3.5-5.1) mmol/L Chloride 102 (98-107) mmol/L Carbon Dioxide 26 (22-30) mmol/L Anion Gap 16.4 H (5-15) MEQ/L BUN 10 (9-20) mg/dL Creatinine 1.20 (0.66-1.25) mg/dL Estimated GFR > 60.0 ML/MIN Glucose 166 H (74-106) mg/dL Calcium 9.1 (8.4-10.2) mg/dL Total Bilirubin 0.50 (0.2-1.3) mg/dL AST 35 (17-59) U/L ALT 35 (0-50) U/L Alkaline Phosphatase 80 (38-126) U/L Troponin I < 0.012 (0.000-0.034) ng/mL NT-Pro-B Natriuret Pep 204 (0-900) pg/mL Serum Total Protein 6.6 (6.3-8.2) g/dL Albumin 4.0 (3.5-5.0) g/dL - Progress Progress: improved Air Movement: fair Blood Culture(s) Obtained: No Antibiotics given: No Discussed with : Harjit Will see patient in: hospital (observation) Counseled pt/family regarding: lab results, diagnosis, need for follow-up, rad results - Departure Departure Disposition: Observation Clinical Impression: Acute exacerbation of chronic obstructive pulmonary disease (COPD) Condition: Fair Critical Care Time: Yes Critical Care Time(excluding separately billable procedures): 30-74 minutes Referrals: MALIKA CORRAL MD [Emergency Provider] - Instructions: Chronic Obstructive Pulmonary Disease
[2019-01-08 13:18] LABS: ANISOCYTOSIS 1+; BAND 1 % (0.0-2.0); Basophil 1 % (0.0-1.0); Eosinophil 9 % (0.00-3.0); Lymphocytes 17 % (24-44); Monocyte 5 % (0.0-12.0); Neutrophils 67 % (36.-66.); Platelet Estimate NORMAL (NORMAL); Total Cells Counted 100; Toxic Granulation 2+
[2019-01-08] MEDS ORDERED: Sodium Chloride 0.9% 1000 ML 1,000 ML IV SCH (15:09)
[2019-01-08] MEDS ORDERED: TYLENOL 325 MG PO PRN (15:09)
[2019-01-08] MEDS ORDERED: PROVENTIL Solution 2.5 MG/0.5 ML IH PRN (15:55)
[2019-01-08] MEDS ORDERED: ENOXAPARIN SODIUM SQ SCH (16:00)
[2019-01-08] MEDS ORDERED: Nitrostat 0.4 MG Tablet SL PRN (16:00)
[2019-01-08] MEDS: DUONEB 0.5-3 MG/3 ml Neb IH SCH ×3 (16:13→23:14)
[2019-01-08] MEDS: BUMEX 1 MG PO SCH (16:56)
[2019-01-08] MEDS: Levofloxacin 500MG/100ML D5W 500 MG/100 ML BAG IV SCH (16:56)
[2019-01-08] MEDS: solu-MEDROL 125 MG IV SCH ×2 (17:30→23:18)
[2019-01-08] MEDS: CLEOCIN 150 MG CAPSULE PO SCH ×2 (17:31→23:18)
[2019-01-08] MEDS ORDERED: PROVENTIL 2.5 MG/3 ML NEB IH PRN (19:16)
--- NOTE | 2019-01-08 21:03 | XRAY ---
Indication: Short of breath. Comparison: October 18, 2018. Portable apical lordotic chest remains clear. Heart is not enlarged for AP portable technique again with CABG surgery. Bony thorax intact again with mild degenerative changes. Impression: Stable nonacute chest with chronic features.
[2019-01-08] MEDS: Ranexa 500 MG PO SCH (21:13)
[2019-01-08] MEDS: BRILINTA PO SCH (21:13)
[2019-01-08] MEDS: Lopressor 25MG Tab PO SCH (21:14)
[2019-01-08] MEDS: NovoLOG Insulin SQ PRN (21:14)
[2019-01-08] MEDS: ELIQUIS 2.5 MG TABLET PO SCH (21:14)
[2019-01-08] MEDS ORDERED: Neurontin 100 MG ONE (21:30)
[2019-01-08] MEDS ORDERED: NON-FORMULARY ITEM (Atorvastatin Calcium [Lipitor] 80 MG) PO SCH (22:00)
[2019-01-08] MEDS ORDERED: ZOCOR 20MG PO SCH (22:00)
[2019-01-08] MEDS ORDERED: NON-FORMULARY ITEM (Apixaban [Eliquis] 5 MG) PO SCH (22:00)
[2019-01-09] MEDS: DUONEB 0.5-3 MG/3 ml Neb IH SCH ×4 (03:22→14:37)
[2019-01-09 05:43] LABS: Hematocrit 36.1 % (42-50); Hemoglobin 11.3 gm/dl (12.5-18.0); Mean Cell Volume 92.8 fl (78-100); Mean Corpuscular Hgb Concent. 31.3 g/dl (32-36); Mean Platelet Volume 10.8 fl (6-9.5); Platelet Count 257 K/mm3 (150-450); Red Blood Count 3.89 M/mm3 (4.1-5.6); Red Cell Distribution Width 16.6 % (11.5-14.0); White Blood Count 10.4 K/mm3 (4.0-10.5)
[2019-01-09 05:58] LABS: ALBUMIN 3.6 g/dL (3.5-5.0); ALKALINE PHOSPHATASE 70 U/L (38-126); ANION GAP 16.2 MEQ/L (5-15); BLOOD UREA NITROGEN 15 mg/dL (9-20); CHLORIDE 103 mmol/L (98-107); Carbon Dioxide 24 mmol/L (22-30); Creatinine 1 1.23 mg/dL (0.66-1.25); Glucose 305 mg/dL (74-106); SGOT/AST 31 U/L (17-59); SODIUM 139 mmol/L (137-145); Total Protein 6.2 g/dL (6.3-8.2)
[2019-01-09 06:05] LABS: SGPT/ALT 37 U/L (0-50)
[2019-01-09] MEDS: solu-MEDROL 125 MG IV SCH ×2 (06:22→11:47)
[2019-01-09] MEDS: CLEOCIN 150 MG CAPSULE PO SCH ×2 (07:49→11:48)
[2019-01-09 08:13] LABS: Lymphocytes 26 % (24-44); Monocyte 3 % (0.0-12.0); Total Cells Counted 100
[2019-01-09 08:15] LABS: ANISOCYTOSIS 1+; Basophilic Stippling 1+; Hypochromia 1+; Neutrophils 71 % (36.-66.); Poikilocytosis 1+; Polychromasia 1+
[2019-01-09 08:16] LABS: Platelet Estimate NORMAL (NORMAL)
[2019-01-09] MEDS: NovoLOG Insulin SQ PRN ×2 (08:16→11:48)
[2019-01-09] MEDS ORDERED: Mobic 7.5 MG PO SCH (10:00)
[2019-01-09] MEDS ORDERED: LISINOPRIL 20 MG PO SCH (10:00)
[2019-01-09] MEDS ORDERED: Tricor 145 MG PO SCH (10:00)
[2019-01-09] MEDS ORDERED: Zestril 20 MG PO SCH (10:00)
[2019-01-09] MEDS ORDERED: NON-FORMULARY ITEM (Umeclidinium Brm/Vilanterol Tr [Anoro Ellipta 62.5-25 Mcg Inh] 1 EACH) IH SCH (10:00)
[2019-01-09] MEDS ORDERED: ZYLOPRIM 300 MG PO SCH (10:00)
[2019-01-09] MEDS ORDERED: Glucotrol Xl 2.5 MG PO SCH (10:00)
[2019-01-09] MEDS ORDERED: Flomax 0.4 MG PO SCH (10:00)
[2019-01-09] MEDS ORDERED: PATIENT OWN MEDICATION PO SCH (10:00)
[2019-01-09] MEDS ORDERED: Imdur 60MG PO SCH (10:00)
[2019-01-09] MEDS ORDERED: Imdur 30 MG PO SCH (10:00)
[2019-01-09] MEDS ORDERED: FENOFIBRATE 50 MG PO SCH (10:00)
[2019-01-09] MEDS: Sodium Chloride 0.9% 1000 ML 1,000 ML IV SCH (10:01)
[2019-01-09] MEDS: BUMEX 1 MG PO SCH (10:01)
[2019-01-09] MEDS: Levofloxacin 500MG/100ML D5W 500 MG/100 ML BAG IV SCH (10:01)
[2019-01-09] MEDS: ELIQUIS 2.5 MG TABLET PO SCH (10:02)
[2019-01-09] MEDS: Lopressor 25MG Tab PO SCH (10:03)
[2019-01-09] MEDS: Ranexa 500 MG PO SCH (10:03)
[2019-01-09] MEDS: BRILINTA PO SCH (10:03)
[2019-01-09 11:37] VITALS: BP 137/63
--- NOTE | 2019-01-09 12:46 | PCM.SSS ---
History of Present Illness - Chief Complaint Chief Complaint: Shortness of Breatt for 2 days History of Present Illness: Mr Phelan is a 63 years old male came to ER with c/o increased sob over the past two days. has been using inhalers and neb treatments without relief.. - Review of Systems Constitutional: No Fever, No Chills Eyes: No Symptoms Ears, Nose, & Throat: No Symptoms Respiratory: Orthopnea, Short Of Breath, No Cough Cardiac: No Chest Pain, No Edema, No Syncope Abdominal/Gastrointestinal: No Abdominal Pain, No Nausea, No Vomiting, No Diarrhea Genitourinary Symptoms: No Dysuria Musculoskeletal: No Back Pain, No Neck Pain Skin: No Rash Neurological: No Dizziness, No Focal Weakness, No Sensory Changes Psychological: No Symptoms Endocrine: No Symptoms Hematologic/Lymphatic: No Symptoms Immunological/Allergic: No Symptoms Medications & Allergies Home Medications: Home Medication List Isosorbide Mononitrate 30 mg [Imdur 30 MG] 60 mg PO DAILY 10/08/15 [ History Confirmed 01/08/19] Atorvastatin Calcium [Lipitor] 80 mg PO HS 10/09/15 [History Confirmed 01/08/19] Lisinopril [Zestril] 20 mg PO DAILY 10/09/15 [History Confirmed 01/08/19] Nitroglycerin [Nitrostat] 0.4 mg SL UD 10/09/15 [History Confirmed 01/08/19] Albuterol 2.5 mg/0.5 ml [PROVENTIL Solution 2.5 MG/0.5 ML] 2.5 mg IH Q12H PRN PRN 04/04/18 [History Confirmed 01/08/19] Fenofibrate 50 mg PO DAILY 04/04/18 [History Confirmed 01/08/19] Ranolazine 500 MG [Ranexa 500 MG] 500 mg PO BID 04/04/18 [History Confirmed 01/08/19] Ticagrelor [Brilinta] 90 mg PO BID 04/04/18 [History Confirmed 01/08/19] Umeclidinium Brm/Vilanterol Tr [Anoro Ellipta 62.5-25 Mcg INH] 1 each IH DAILY 04/04/18 [History Confirmed 01/08/19] Apixaban [Eliquis] 5 mg PO BID 10/18/18 [History Confirmed 01/08/19] Bumetanide 1 mg [Bumex 1 mg] 2 mg PO BID 10/18/18 [History Confirmed 01/08] Glipizide 2.5 mg [Glucotrol Xl 2.5 MG] 2.5 mg PO DAILY 10/18/18 [History Confirmed 01/08/19] Tamsulosin HCl 0.4 mg [Flomax 0.4 MG] 0.4 mg PO DAILY 10/18/18 [History Confirmed 01/08/19] Allopurinol 300 mg [Zyloprim 300 mg] 300 mg PO DAILY 01/08/19 [History Confirmed 01/08/19] Clindamycin HCl [Cleocin HCl] 150 mg PO Q6H 01/08/19 [History Confirmed 01/08/19 ] Ergocalciferol (Vitamin D2) [Vitamin D2] 50,000 unit PO WEEKLY 01/08/19 [ History Confirmed 01/08/19] Meloxicam 7.5 mg [Mobic 7.5 MG] 7.5 mg PO DAILY 01/08/19 [History Confirmed 01/08/19] Metoprolol Tartrate 25 mg [Lopressor 25MG Tab] 25 mg PO BID 01/08/19 [ History Confirmed 01/08/19] Allergies/Adverse Reactions: Allergies Allergy/AdvReac Type Severity Reaction Status Date / Time ceftriaxone [From Rocephin] Allergy Severe Anaphylactic Verified 01/08/19 14:56 Reaction Penicillins Allergy Unknown Verified 01/08/19 14:56 - Past Medical History Past Medical History: Yes Neurological History: No Pertinent History ENT History: No Pertinent History Cardiac History: Arrhythmia, Congestive Heart Failure, Coronary Artery Disease, High Cholesterol, Hypertension, Myocardial Infarction ([place]), Peripheral Vascular Disease Respiratory History: CHF, COPD Endocrine Medical History: No Pertinent History, Diabetes Type II Musculoskelatal History: No Pertinent History GI Medical History: No Pertinent History History: No Pertinent History Pyscho-Social History: Anxiety, Depression Male Reproductive Disorders: No Pertinent History - Past Surgical History Past Surgical History: Yes (heart surgery 2005) Neuro Surgical History: No Pertinent History Cardiac History: CABG, Cardiac Catheterization, Cardiac Stent Respiratory Surgery: No Pertinent History GI Surgical History: No Pertinent History Genitourinary Surgical Hx: No Pertinent History Musculskeletal Surgical Hx: No Pertinent History Male Surgical History: No Pertinent History Other Surgical History: stents in both legs for PAD - Social History Smoking Status: Former smoker How long have you smoked: 40 years Exposure to second hand smoke: Yes Alcohol: None Drug Use: none - Physical Exam Vital Signs: Vital Signs - 24 hr Temp Pulse Resp BP Pulse Ox 01/09/19 11:36 97.9 F 76 19 137/63 91 L 01/09/19 10:14 83 24 92 L 01/09/19 07:58 98.3 F 66 18 148/67 94 L 01/09/19 07:23 66 18 94 L 01/09/19 04:00 97.8 F 81 21 159/86 93 L 01/09/19 03:23 89 14 96 01/09/19 00:00 20 01/08/19 23:39 98.2 F 84 20 124/56 95 01/08/19 23:18 95 01/08/19 20:00 97.7 F 87 33 H 151/67 95 01/08/19 19:23 83 16 95 01/08/19 16:06 84 95 01/08/19 15:54 98.4 F 75 18 176/77 97 01/08/19 15:16 98.9 F 73 24 130/63 97 01/08/19 15:09 98.4 F 75 18 176/77 97 01/08/19 15:05 98.4 F 75 18 176/77 97 01/08/19 14:34 73 24 130/63 97 01/08/19 13:11 98.9 F 74 18 129/59 96 Oxygen-Last 24 hours O2 Percentage 2 Liters = 28% O2 Percentage 2 Liters = 28% O2 Percentage 3 Liters = 32% O2 Percentage 3 Liters = 32% O2 Percentage 3 Liters = 32% O2 Percentage 3 Liters = 32% General Appearance: no apparent distress, alert Neurologic Exam: alert, oriented x 3, cooperative, normal mood/affect, nml cerebellar function, nml station & gait, sensation nml, No motor deficits Eye Exam: PERRL/EOMI, eyes nml inspection Ears, Nose, Throat Exam: normal ENT inspection, TMs normal, pharynx normal, moist mucous membranes Neck Exam: normal inspection, non-tender, supple, full range of motion Respiratory Exam: diminished breath sounds, No respiratory distress Cardiovascular Exam: regular rate/rhythm, normal heart sounds, normal peripheral pulses Gastrointestinal/Abdomen Exam: soft, normal bowel sounds, No tenderness, No mass Back Exam: normal inspection, normal range of motion, No CVA tenderness, No vertebral tenderness Extremity Exam: normal inspection, normal range of motion, pelvis stable Skin Exam: normal color, warm, dry, No rash Lymphatic Exam: No adenopathy Results - Labs Lab/Micro Results: Accuchecks Date 01/08/19 Time 17:30 Accucheck Value: 225 Accucheck Value: 338 Accucheck Value: 232 Accucheck Value: 265 Lab Results-Last 24 Hours 01/08/19 01/08/19 01/08/19 Range/Units 00:02 11:30 11:30 WBC (4.0-10.5) K/mm3 RBC (4.1-5.6) M/mm3 Hgb (12.5-18.0) gm/dl Hct (42-50) % MCV (78-100) fl MCH (26-32) pg MCHC (32-36) g/dl RDW (11.5-14.0) % Plt Count (150-450) K/mm3 MPV (6-9.5) fl Segmented Neutrophils 67 H (36.-66.) % Band Neutrophils 1 (0.0-2.0) % Lymphocytes (Manual) 17 L (24-44) % Monocytes (Manual) 5 (0.0-12.0) % Eosinophils (Manual) 9 H (0.00-3.0) % Basophils (Manual) 1 (0.0-1.0) % Hypochromia Toxic Granulation 2+ Platelet Estimate NORMAL (NORMAL) RBC Morphology ABNORMAL Polychromasia Poikilocytosis Basophilic Stippling Anisocytosis 1+ Sodium (137-145) mmol/L Potassium (3.5-5.1) mmol/L Chloride (98-107) mmol/L Carbon Dioxide (22-30) mmol/L Anion Gap (5-15) MEQ/L BUN (9-20) mg/dL Creatinine (0.66-1.25) mg/dL Estimated GFR ML/MIN Glucose (74-106) mg/dL Hemoglobin A1c 5.96 (4.5-6.0) % Calcium (8.4-10.2) mg/dL Total Bilirubin (0.2-1.3) mg/dL AST (17-59) U/L ALT (0-50) U/L Alkaline Phosphatase (38-126) U/L Troponin I 0.013 (0.000-0.034) ng/mL Serum Total Protein (6.3-8.2) g/dL Albumin (3.5-5.0) g/dL 01/08/19 01/08/19 01/08/19 Range/Units 14:45 18:01 20:56 WBC (4.0-10.5) K/mm3 RBC (4.1-5.6) M/mm3 Hgb (12.5-18.0) gm/dl Hct (42-50) % MCV (78-100) fl MCH (26-32) pg MCHC (32-36) g/dl RDW (11.5-14.0) % Plt Count (150-450) K/mm3 MPV (6-9.5) fl Segmented Neutrophils (36.-66.) % Band Neutrophils (0.0-2.0) % Lymphocytes (Manual) (24-44) % Monocytes (Manual) (0.0-12.0) % Eosinophils (Manual) (0.00-3.0) % Basophils (Manual) (0.0-1.0) % Hypochromia Toxic Granulation Platelet Estimate (NORMAL) RBC Morphology Polychromasia Poikilocytosis Basophilic Stippling Anisocytosis Sodium (137-145) mmol/L Potassium (3.5-5.1) mmol/L Chloride (98-107) mmol/L Carbon Dioxide (22-30) mmol/L Anion Gap (5-15) MEQ/L BUN (9-20) mg/dL Creatinine (0.66-1.25) mg/dL Estimated GFR ML/MIN Glucose (74-106) mg/dL Hemoglobin A1c (4.5-6.0) % Calcium (8.4-10.2) mg/dL Total Bilirubin (0.2-1.3) mg/dL AST (17-59) U/L ALT (0-50) U/L Alkaline Phosphatase (38-126) U/L Troponin I 0.015 0.012 0.013 (0.000-0.034) ng/mL Serum Total Protein (6.3-8.2) g/dL Albumin (3.5-5.0) g/dL 01/09/19 01/09/19 Range/Units 05:05 05:10 WBC 10.4 (4.0-10.5) K/mm3 RBC 3.89 L (4.1-5.6) M/mm3 Hgb 11.3 L (12.5-18.0) gm/dl Hct 36.1 L (42-50) % MCV 92.8 (78-100) fl MCH 29.0 (26-32) pg MCHC 31.3 L (32-36) g/dl RDW 16.6 H (11.5-14.0) % Plt Count 257 (150-450) K/mm3 MPV 10.8 H (6-9.5) fl Segmented Neutrophils 71 H (36.-66.) % Band Neutrophils (0.0-2.0) % Lymphocytes (Manual) 26 (24-44) % Monocytes (Manual) 3 (0.0-12.0) % Eosinophils (Manual) (0.00-3.0) % Basophils (Manual) (0.0-1.0) % Hypochromia 1+ Toxic Granulation Platelet Estimate NORMAL (NORMAL) RBC Morphology ABNORMAL Polychromasia 1+ Poikilocytosis 1+ Basophilic Stippling 1+ Anisocytosis 1+ Sodium 139 (137-145) mmol/L Potassium 4.0 (3.5-5.1) mmol/L Chloride 103 (98-107) mmol/L Carbon Dioxide 24 (22-30) mmol/L Anion Gap 16.2 H (5-15) MEQ/L BUN 15 (9-20) mg/dL Creatinine 1.23 (0.66-1.25) mg/dL Estimated GFR > 60.0 ML/MIN Glucose 305 H (74-106) mg/dL Hemoglobin A1c (4.5-6.0) % Calcium 9.0 (8.4-10.2) mg/dL Total Bilirubin 0.30 (0.2-1.3) mg/dL AST 31 (17-59) U/L ALT 37 (0-50) U/L Alkaline Phosphatase 70 (38-126) U/L Troponin I (0.000-0.034) ng/mL Serum Total Protein 6.2 L (6.3-8.2) g/dL Albumin 3.6 (3.5-5.0) g/dL Accuchecks Date 01/08/19 Time 17:30 Accucheck Value: 225 Accucheck Value: 338 Accucheck Value: 232 Accucheck Value: 265 - Radiology Impressions Radiology Exams & Impressions: Radiology Procedures Category Date Time Status CHEST 1 VIEW (PORTABLE) Stat Exams 01/08/19 11:33 Completed - Other Procedures and Tests Respiratory Therapy 01/08/19 12:40 BiPap/CPAP ROUTINE 01/08/19 15:55 Peak Expiratory Flow Rate ONCE 01/08/19 15:56 Respiratory Therapy Assessment DAILY 01/08/19 16:05 Respiratory MDI QAM 01/08/19 19:24 Oxygen Nasal Cannula 3 lpm Assessment/Plan (1) Acute exacerbation of chronic obstructive pulmonary disease (COPD) Current Visit: Yes Status: Acute Assessment & Plan: doing better, requires 2 liters oxygen thru nasal cannula 24 hrs Code(s): J44.1 - CHRONIC OBSTRUCTIVE PULMONARY DISEASE W (ACUTE) EXACERBATION (2) CAD (coronary artery disease) Current Visit: No Status: Chronic Qualifiers: Coronary Disease-Associated Artery/Lesion type: [place] artery Code(s): I25.10 - ATHSCL HEART DISEASE OF [place] CORONARY ARTERY W/O ANG PCTRS (3) HTN (hypertension) Current Visit: No Status: Chronic Code(s): I10 - ESSENTIAL (PRIMARY) HYPERTENSION Hospital Summary - Hospital Course Hospital Course: Respiratory Therapy 01/08/19 12:40 BiPap/CPAP ROUTINE 01/08/19 15:55 Peak Expiratory Flow Rate ONCE 01/08/19 15:56 Respiratory Therapy Assessment DAILY 01/08/19 16:05 Respiratory MDI QAM 01/08/19 19:24 Oxygen Nasal Cannula 3 lpm Last Vital Signs Temp 97.9 F 01/09/19 11:36 Pulse 76 01/09/19 11:36 Resp 19 01/09/19 11:36 BP 137/63 01/09/19 11:36 Pulse Ox 91 L 01/09/19 11:36 Allergies ceftriaxone [From Rocephin] Allergy (Severe, Verified 01/08/19 14:56) Anaphylactic Reaction Penicillins Allergy (Unknown, Verified 01/08/19 14:56) Active Medications Acetaminophen (Tylenol 325 Mg) 650 mg PO Q4H PRN PRN PRN Reason: PAIN AND/OR FEVER Stop: 02/07/19 15:08 Albuterol Sulfate (Proventil 2.5 Mg/3 Ml Neb) 2.5 mg IH Q2H PRN PRN PRN Reason: SHORTNESS OF BREATH/WHEEZING Stop: 02/07/19 19:15 Last Admin: 01/08/19 19:17 Dose: 2.5 mg Albuterol/Ipratropium (Duoneb 0.5-3 Mg/3 Ml Neb) 3 ml IH Q4HRT [place] Stop: 02/07/19 15:08 Last Admin: 01/09/19 10:13 Dose: 3 ml Allopurinol (Zyloprim 300 Mg) 300 mg PO DAILY [place] Stop: 02/08/19 09:59 Last Admin: 01/09/19 10:02 Dose: 300 mg Apixaban (Eliquis 2.5 Mg Tablet) 5 mg PO BID [place] Stop: 02/07/19 21:59 Last Admin: 01/09/19 10:02 Dose: 5 mg Bumetanide (Bumex 1 Mg) 2 mg PO BID DIURETIC [place] Stop: 02/07/19 16:59 Last Admin: 01/09/19 10:01 Dose: 2 mg Clindamycin HCl (Cleocin 150 Mg Capsule) 150 mg PO Q6HT [place] Stop: 02/07/19 17:59 Last Admin: 01/09/19 11:48 Dose: 150 mg Ergocalciferol (Vitamin D2) 50,000 unit PO WEEKLY [place] Stop: 02/09/19 09:59 Fenofibrate (Tricor 145 Mg) 72.5 mg PO DAILY [place] Stop: 02/08/19 09:59 Last Admin: 01/09/19 10:02 Dose: 72.5 mg Glipizide (Glucotrol Xl 2.5 Mg) 2.5 mg PO DAILY [place] Stop: 02/08/19 09:59 Last Admin: 01/09/19 10:03 Dose: 2.5 mg Sodium Chloride (Sodium Chloride 0.9% 1000 Ml) 1,000 mls @ 100 mls/hr IV .Q10H [place] Stop: 02/07/19 11:44 Last Admin: 01/09/19 10:01 Dose: 100 mls/hr Levofloxacin/Dextrose (Levofloxacin 500mg/100ml D5w) 500 mg in 100 mls @ 100 mls/hr IV Q24H10 [place] Stop: 02/07/19 15:59 Last Admin: 01/09/19 10:01 Dose: 100 mls/hr Insulin Aspart (Novolog Insulin) 0 unit SQ UD PRN PRN Reason: HYPERGLYCEMIA Stop: 02/07/19 15:08 Last Admin: 01/09/19 11:48 Dose: 2 unit Isosorbide Mononitrate (Imdur 60mg) 60 mg PO DAILY [facility] Stop: 02/08/19 09:59 Last Admin: 01/09/19 10:03 Dose: 60 mg Lisinopril (Zestril 20 Mg) 20 mg PO DAILY [facility] Stop: 02/08/19 09:59 Last Admin: 01/09/19 10:02 Dose: 20 mg Meloxicam (Mobic 7.5 Mg) 7.5 mg PO DAILY [facility] Stop: 02/08/19 09:59 Last Admin: 01/09/19 10:04 Dose: 7.5 mg Methylprednisolone Sodium Succinate (Solu-Medrol 125 Mg) 80 mg IV Q6HT [facility] Stop: 02/07/19 17:59 Last Admin: 01/09/19 11:47 Dose: 80 mg Metoprolol Tartrate (Lopressor 25mg Tab) 25 mg PO BID [facility] Stop: 02/07/19 21:59 Last Admin: 01/09/19 10:03 Dose: 25 mg Nitroglycerin (Nitrostat 0.4 Mg Tablet) 0.4 mg SL UD PRN Stop: 02/07/19 15:59 Patient Own Med: (Anoro 62.5/25) 1 each PO DAILY [place] Stop: 02/08/19 09:59 Last Admin: 01/09/19 07:23 Dose: 1 each Ranolazine (Ranexa 500 Mg) 500 mg PO BID [facility] Stop: 02/07/19 21:59 Last Admin: 01/09/19 10:03 Dose: 500 mg Simvastatin (Zocor 20mg) 40 mg PO HS [place] Stop: 02/07/19 21:59 Last Admin: 01/08/19 21:13 Dose: 40 mg Tamsulosin HCl (Flomax 0.4 Mg) 0.4 mg PO DAILY [place] Stop: 02/08/19 09:59 Last Admin: 01/09/19 10:03 Dose: 0.4 mg Ticagrelor (Brilinta) 90 mg PO BID [place] Stop: 02/07/19 21:59 Last Admin: 01/09/19 10:03 Dose: 90 mg Intake & Output 01/09/19 01/10/19 11:59 11:59 Intake Total 3508 Output Total 1700 Balance 1808 Weight 105.5 kg Orders 01/08/19 11:45 NaCl 0.9% 1000 ml [Sodium Chloride 0.9% 1000 ML] 1,000 ml IV 100 mls/hr 01/08/19 12:40 BiPap/CPAP ROUTINE 01/08/19 15:09 Up Ad Emilia ROUTINE Accucheck ACHS Call Admit Doctor for Orders ON ADMISSION Code Status Order ROUTINE IV Care Q6H Place in Observation ROUTINE Bhupinder Chaves, Apply ROUTINE Telemetry Q12H Weight,Daily 0600 Acetaminophen 325 mg [Tylenol 325 mg] 650 mg PO Q4H PRN PRN Albuterol/Ipratropium 3ml Neb* [DUONEB 0.5-3 MG/3 ml Neb] 3 ml IH Q4HRT Insulin Aspart [NovoLOG Insulin] See Dose Instructions SQ UD PRN 01/08/19 15:52 Competitive Athlete/Discharge Plan 01/08/19 15:55 Peak Expiratory Flow Rate ONCE 01/08/19 15:56 Pulse Oximetry .continuos Respiratory Therapy Assessment DAILY 01/08/19 15:59 Cardio-Pulmonary Rehab .as ordered 01/08/19 16:00 Levofloxacin [Levofloxacin 500MG/100ML D5W] 500 mg in 100 ml IV Q24H10 Nitroglycerin 0.4 mg Tablet [Nitrostat 0.4 MG Tablet] 0.4 mg SL UD PRN 01/08/19 16:05 Respiratory MDI QAM 01/08/19 17:00 Bumetanide 1 mg [Bumex 1 mg] 2 mg PO BID DIURETIC 01/08/19 18:00 Clindamycin HCl 150 mg [Cleocin 150 mg Capsule] 150 mg PO Q6HT Methylprednis Sod Succ 125 mg* [solu-MEDROL 125 MG] 80 mg IV Q6HT 01/08/19 19:16 Albuterol 2.5 mg/3 ml Neb [Proventil 2.5 mg/3 ml Neb] 2.5 mg IH Q2H PRN PRN 01/08/19 19:24 Oxygen Nasal Cannula 3 lpm 01/08/19 22:00 Apixaban [Eliquis 2.5 mg Tablet] 5 mg PO BID Metoprolol Tartrate 25 mg [Lopressor 25MG Tab] 25 mg PO BID Ranolazine 500 MG [Ranexa 500 MG] 500 mg PO BID Simvastatin 20Mg [Zocor 20Mg] 40 mg PO HS Ticagrelor [Brilinta] 90 mg PO BID 01/08/19 Dinner 1800 Calorie ADA 01/09/19 10:00 Allopurinol 300 mg [Zyloprim 300 mg] 300 mg PO DAILY Fenofibrate,Micronized 145 mg* [Tricor 145 MG] 72.5 mg PO DAILY Glipizide 2.5 mg [Glucotrol Xl 2.5 MG] 2.5 mg PO DAILY Isosorbide Mononitrate 60 mg [Imdur 60MG] 60 mg PO DAILY Lisinopril 20 mg [Zestril 20 MG] 20 mg PO DAILY Meloxicam 7.5 mg [Mobic 7.5 MG] 7.5 mg PO DAILY Patient Own Med [Patient Own Medication] 1 each PO DAILY Tamsulosin HCl 0.4 mg [Flomax 0.4 MG] 0.4 mg PO DAILY 01/10/19 10:00 Ergocalciferol (Vitamin D2) [Vitamin D2] 50,000 unit PO WEEKLY Lab Tests 01/08/19 01/08/19 01/08/19 00:02 11:30 11:30 WBC RBC Hgb Hct MCV MCH MCHC RDW Plt Count MPV Segmented Neutrophils 67 H Band Neutrophils 1 Lymphocytes (Manual) 17 L Monocytes (Manual) 5 Eosinophils (Manual) 9 H Basophils (Manual) 1 Hypochromia Toxic Granulation 2+ Platelet Estimate NORMAL RBC Morphology ABNORMAL Polychromasia Poikilocytosis Basophilic Stippling Anisocytosis 1+ Sodium Potassium Chloride Carbon Dioxide Anion Gap BUN Creatinine Estimated GFR Glucose Hemoglobin A1c 5.96 Calcium Total Bilirubin AST ALT Alkaline Phosphatase Troponin I 0.013 Serum Total Protein Albumin 01/08/19 01/08/19 01/08/19 14:45 18:01 20:56 WBC RBC Hgb Hct MCV MCH MCHC RDW Plt Count MPV Segmented Neutrophils Band Neutrophils Lymphocytes (Manual) Monocytes (Manual) Eosinophils (Manual) Basophils (Manual) Hypochromia Toxic Granulation Platelet Estimate RBC Morphology Polychromasia Poikilocytosis Basophilic Stippling Anisocytosis Sodium Potassium Chloride Carbon Dioxide Anion Gap BUN Creatinine Estimated GFR Glucose Hemoglobin A1c Calcium Total Bilirubin AST ALT Alkaline Phosphatase Troponin I 0.015 0.012 0.013 Serum Total Protein Albumin 01/09/19 01/09/19 05:05 05:10 WBC 10.4 RBC 3.89 L Hgb 11.3 L Hct 36.1 L MCV 92.8 MCH 29.0 MCHC 31.3 L RDW 16.6 H Plt Count 257 MPV 10.8 H Segmented Neutrophils 71 H Band Neutrophils Lymphocytes (Manual) 26 Monocytes (Manual) 3 Eosinophils (Manual) Basophils (Manual) Hypochromia 1+ Toxic Granulation Platelet Estimate NORMAL RBC Morphology ABNORMAL Polychromasia 1+ Poikilocytosis 1+ Basophilic Stippling 1+ Anisocytosis 1+ Sodium 139 Potassium 4.0 Chloride 103 Carbon Dioxide 24 Anion Gap 16.2 H BUN 15 Creatinine 1.23 Estimated GFR > 60.0 Glucose 305 H Hemoglobin A1c Calcium 9.0 Total Bilirubin 0.30 AST 31 ALT 37 Alkaline Phosphatase 70 Troponin I Serum Total Protein 6.2 L Albumin 3.6 - Vitals & Intake/Output Vital Signs: Vital Signs Temperature 97.9 F 01/09/19 11:36 Pulse Rate 76 01/09/19 11:36 Respiratory Rate 01/09/19 11:36 Blood Pressure 137/63 01/09/19 11:36 O2 Sat by Pulse Oximetry 91 L 01/09/19 11:36 Oxygen-Last Documented O2 Percentage 2 Liters = 28% Intake & Output: Intake & Output 01/07/19 01/08/19 01/09/19 01/10/19 11:59 11:59 11:59 11:59 Intake Total 3508 Output Total 1700 Balance 1808 Weight 106.594 kg 105.5 kg - Lab Result Diagrams: 01/09/19 05:05 01/09/19 05:10 Lab Results-Last 24 Hrs: Accuchecks Date 01/08/19 Time 17:30 Accucheck Value: 225 Accucheck Value: 338 Accucheck Value: 232 Accucheck Value: 265 Lab Results-Last 24 Hours 01/08/19 01/08/19 01/08/19 Range/Units 00:02 11:30 11:30 WBC (4.0-10.5) K/mm3 RBC (4.1-5.6) M/mm3 Hgb (12.5-18.0) gm/dl Hct (42-50) % MCV (78-100) fl MCH (26-32) pg MCHC (32-36) g/dl RDW (11.5-14.0) % Plt Count (150-450) K/mm3 MPV (6-9.5) fl Segmented Neutrophils 67 H (36.-66.) % Band Neutrophils 1 (0.0-2.0) % Lymphocytes (Manual) 17 L (24-44) % Monocytes (Manual) 5 (0.0-12.0) % Eosinophils (Manual) 9 H (0.00-3.0) % Basophils (Manual) 1 (0.0-1.0) % Hypochromia Toxic Granulation 2+ Platelet Estimate NORMAL (NORMAL) RBC Morphology ABNORMAL Polychromasia Poikilocytosis Basophilic Stippling Anisocytosis 1+ Sodium (137-145) mmol/L Potassium (3.5-5.1) mmol/L Chloride (98-107) mmol/L Carbon Dioxide (22-30) mmol/L Anion Gap (5-15) MEQ/L BUN (9-20) mg/dL Creatinine (0.66-1.25) mg/dL Estimated GFR ML/MIN Glucose (74-106) mg/dL Hemoglobin A1c 5.96 (4.5-6.0) % Calcium (8.4-10.2) mg/dL Total Bilirubin (0.2-1.3) mg/dL AST (17-59) U/L ALT (0-50) U/L Alkaline Phosphatase (38-126) U/L Troponin I 0.013 (0.000-0.034) ng/mL Serum Total Protein (6.3-8.2) g/dL Albumin (3.5-5.0) g/dL 01/08/19 01/08/19 01/08/19 Range/Units 14:45 18:01 20:56 WBC (4.0-10.5) K/mm3 RBC (4.1-5.6) M/mm3 Hgb (12.5-18.0) gm/dl Hct (42-50) % MCV (78-100) fl MCH (26-32) pg MCHC (32-36) g/dl RDW (11.5-14.0) % Plt Count (150-450) K/mm3 MPV (6-9.5) fl Segmented Neutrophils (36.-66.) % Band Neutrophils (0.0-2.0) % Lymphocytes (Manual) (24-44) % Monocytes (Manual) (0.0-12.0) % Eosinophils (Manual) (0.00-3.0) % Basophils (Manual) (0.0-1.0) % Hypochromia Toxic Granulation Platelet Estimate (NORMAL) RBC Morphology Polychromasia Poikilocytosis Basophilic Stippling Anisocytosis Sodium (137-145) mmol/L Potassium (3.5-5.1) mmol/L Chloride (98-107) mmol/L Carbon Dioxide (22-30) mmol/L Anion Gap (5-15) MEQ/L BUN (9-20) mg/dL Creatinine (0.66-1.25) mg/dL Estimated GFR ML/MIN Glucose (74-106) mg/dL Hemoglobin A1c (4.5-6.0) % Calcium (8.4-10.2) mg/dL Total Bilirubin (0.2-1.3) mg/dL AST (17-59) U/L ALT (0-50) U/L Alkaline Phosphatase (38-126) U/L Troponin I 0.015 0.012 0.013 (0.000-0.034) ng/mL Serum Total Protein (6.3-8.2) g/dL Albumin (3.5-5.0) g/dL 01/09/19 01/09/19 Range/Units 05:05 05:10 WBC 10.4 (4.0-10.5) K/mm3 RBC 3.89 L (4.1-5.6) M/mm3 Hgb 11.3 L (12.5-18.0) gm/dl Hct 36.1 L (42-50) % MCV 92.8 (78-100) fl MCH 29.0 (26-32) pg MCHC 31.3 L (32-36) g/dl RDW 16.6 H (11.5-14.0) % Plt Count 257 (150-450) K/mm3 MPV 10.8 H (6-9.5) fl Segmented Neutrophils 71 H (36.-66.) % Band Neutrophils (0.0-2.0) % Lymphocytes (Manual) 26 (24-44) % Monocytes (Manual) 3 (0.0-12.0) % Eosinophils (Manual) (0.00-3.0) % Basophils (Manual) (0.0-1.0) % Hypochromia 1+ Toxic Granulation Platelet Estimate NORMAL (NORMAL) RBC Morphology ABNORMAL Polychromasia 1+ Poikilocytosis 1+ Basophilic Stippling 1+ Anisocytosis 1+ Sodium 139 (137-145) mmol/L Potassium 4.0 (3.5-5.1) mmol/L Chloride 103 (98-107) mmol/L Carbon Dioxide 24 (22-30) mmol/L Anion Gap 16.2 H (5-15) MEQ/L BUN 15 (9-20) mg/dL Creatinine 1.23 (0.66-1.25) mg/dL Estimated GFR > 60.0 ML/MIN Glucose 305 H (74-106) mg/dL Hemoglobin A1c (4.5-6.0) % Calcium 9.0 (8.4-10.2) mg/dL Total Bilirubin 0.30 (0.2-1.3) mg/dL AST 31 (17-59) U/L ALT 37 (0-50) U/L Alkaline Phosphatase 70 (38-126) U/L Troponin I (0.000-0.034) ng/mL Serum Total Protein 6.2 L (6.3-8.2) g/dL Albumin 3.6 (3.5-5.0) g/dL Micro Results-Entire Visit: Accuchecks Date 01/08/19 Time 17:30 Accucheck Value: 225 Accucheck Value: 338 Accucheck Value: 232 Accucheck Value: 265 - Radiology Exams Ordered Rad Exams-Entire Visit: Radiology Procedures Category Date Time Status CHEST 1 VIEW (PORTABLE) Stat Exams 01/08/19 11:33 Completed - Procedures and Test Procedures and Tests throughout Hospitalization: Therapy Orders & Screens 01/08/19 12:06 Respiratory Therapy Assessment DAILY Comment: Diagnosis: Shortness of Breath 01/08/19 12:40 BiPap/CPAP ROUTINE Comment: Diagnosis: Shortness of Breath 01/08/19 15:09 Oxygen Oxymizer LPM 3% Comment: Diagnosis: Shortness of Breath 01/08/19 15:55 Peak Expiratory Flow Rate ONCE Comment: Reason For Exam: Diagnosis: Shortness of Breath, COPD exacerbation 01/08/19 15:56 Respiratory Therapy Assessment DAILY Comment: Diagnosis: Shortness of Breath, COPD exacerbation 01/08/19 16:05 Respiratory MDI QAM Comment: Diagnosis: Shortness of Breath, COPD exacerbation 01/08/19 19:24 Oxygen Nasal Cannula 3 lpm Comment: Diagnosis: Shortness of Breath, COPD exacerbation - Discharge Discharge Date: 01/09/19 Disposition: Home, Self-Care Condition: Stable Prescriptions: Continue Isosorbide Mononitrate 30 mg [Imdur 30 MG] 60 mg PO DAILY Lisinopril [Zestril] 20 mg PO DAILY Atorvastatin Calcium [Lipitor] 80 mg PO HS Nitroglycerin [Nitrostat] 0.4 mg SL UD Ranolazine 500 MG [Ranexa 500 MG] 500 mg PO BID Umeclidinium Brm/Vilanterol Tr [Anoro Ellipta 62.5-25 Mcg INH] 1 each IH DAILY Ticagrelor [Brilinta] 90 mg PO BID Fenofibrate 50 mg PO DAILY Albuterol 2.5 mg/0.5 ml [PROVENTIL Solution 2.5 MG/0.5 ML] 2.5 mg IH Q12H PRN PRN PRN Reason: Shortness Of Breath/Wheezing Glipizide 2.5 mg [Glucotrol Xl 2.5 MG] 2.5 mg PO DAILY Bumetanide 1 mg [Bumex 1 mg] 2 mg PO BID Tamsulosin HCl 0.4 mg [Flomax 0.4 MG] 0.4 mg PO DAILY Apixaban [Eliquis] 5 mg PO BID Clindamycin HCl [Cleocin HCl] 150 mg PO Q6H Allopurinol 300 mg [Zyloprim 300 mg] 300 mg PO DAILY Ergocalciferol (Vitamin D2) [Vitamin D2] 50,000 unit PO WEEKLY Meloxicam 7.5 mg [Mobic 7.5 MG] 7.5 mg PO DAILY Metoprolol Tartrate 25 mg [Lopressor 25MG Tab] 25 mg PO BID Follow up with: BREANNE CORTEZ [Primary Care Provider] - 1 Week
[2019-01-09 14:40] VITALS: PULSE 70; O2SAT 95
[2019-01-10] MEDS ORDERED: VITAMIN D2 PO SCH (10:00)
== END 2019-01-09 15:45 | disposition home or self-care (01) ==
LOC: ED 11:26 → MED SURG 15:04
PROVIDERS: ADMIT General Practice; ATTEND General Practice
DX: J44.1 Chronic obstructive pulmonary disease with (acute) exacerbation (principal); E11.9 Type 2 diabetes mellitus without complications; I10 Essential (primary) hypertension; I25.10 Atherosclerotic heart disease of native coronary artery without angina pectoris; Z79.899 Other long term (current) drug therapy; Z79.84 Long term (current) use of oral hypoglycemic drugs; Z79.01 Long term (current) use of anticoagulants; E78.00 Pure hypercholesterolemia, unspecified
CPT/HCPCS: 36415; 71045; 80053; 82962; 83036; 83880; 84484; 85025; 93005; 93041; 93268; 94002; 94003; 94150; 94640; 94760; 94762; 96360; 96361; 96374; 99285; G0378; J1956; J2930; J7609; A9270-GY

== ENCOUNTER 2020-03-02 15:21 | Emergency (ER) | payer MEDICARE ==
[2020-03-02] MEDS ORDERED: solu-MEDROL 125 MG IV ONE (15:28)
--- NOTE | 2020-03-02 15:28 | ERPHSYRPT ---
- History of Present Illness Time Seen by Provider: 03/02/20 15:28 Source: patient Exam Limitations: no limitations Physician History: This is an obese diabetic 65-year-old white male patient of Dr. Alee Cortez who presents with 2 primary concerns. He is has worsening shortness of breath over the last several days as well as redness and tenderness to his bilateral lower extremities. Patient was seen by his primary care physician this past week was placed on oral Bactrim. The patient does not feel that his leg pain and redness have improved. Patient has a history of hypertension, COPD, CHF, coronary disease and peripheral vascular disease. The patient is on Eliquis and Brilinta. Timing/Duration: week(s) (1), worse Activities at Onset: activity Severity of Dyspnea-Max: moderate Severity of Dyspnea-Current: moderate Possible Cause: occasional episodes Associated Symptoms: constant, ankle swelling, No cough, No weakness Allergies/Adverse Reactions: ceftriaxone [From Rocephin] Allergy (Severe, Verified 03/02/20 15:48) Anaphylactic Reaction Penicillins Allergy (Unknown, Verified 03/02/20 15:48) Home Medications: Isosorbide Mononitrate 30 mg [Imdur 30 MG] 60 mg PO DAILY 10/08/15 [History] Atorvastatin Calcium [Lipitor] 80 mg PO HS 10/09/15 [History] Nitroglycerin [Nitrostat] 0.4 mg SL UD 10/09/15 [History] lisinopriL [Zestril] 20 mg PO DAILY 10/09/15 [History] Albuterol 2.5 mg/0.5 ml [PROVENTIL Solution 2.5 MG/0.5 ML] 2.5 mg IH Q12H PRN PRN 04/04/18 [History] Fenofibrate 50 mg PO DAILY 04/04/18 [History] Ranolazine 500 MG [Ranexa 500 MG] 500 mg PO BID 04/04/18 [History] Ticagrelor [Brilinta] 90 mg PO BID 04/04/18 [History] Umeclidinium Brm/Vilanterol Tr [Anoro Ellipta 62.5-25 Mcg INH] 1 each IH DAILY 04/04/18 [History] Apixaban [Eliquis] 5 mg PO BID 10/18/18 [History] Bumetanide 1 mg [Bumex 1 mg] 2 mg PO BID 10/18/18 [History] Glipizide 2.5 mg [Glucotrol Xl 2.5 MG] 2.5 mg PO DAILY 10/18/18 [History] Tamsulosin HCl 0.4 mg [Flomax 0.4 MG] 0.4 mg PO DAILY 10/18/18 [History] Allopurinol 300 mg [Zyloprim 300 mg] 300 mg PO DAILY 01/08/19 [History] Ergocalciferol (Vitamin D2) [Vitamin D2] 50,000 unit PO WEEKLY 01/08/19 [History] Meloxicam 7.5 mg [Mobic 7.5 MG] 7.5 mg PO DAILY 01/08/19 [History] Metoprolol Tartrate 25 mg [Lopressor 25MG Tab] 25 mg PO BID 01/08/19 [History] Smz/Tmp Ds Tablet [Bactrim Ds Tablet] 1 ea DAILY 03/02/20 [History] Hx Tetanus, Diphtheria Vaccination/Date Given: No Hx Influenza Vaccination/Date Given: Yes Hx Pneumococcal Vaccination/Date Given: Yes Travel Risk - International Travel Have you traveled outside of the country in past 3 weeks: No - Coronavirus Screening Are you exhibiting any of the following symptoms?: Yes Symptoms: Shortness of Breath Close contact with a COVID-19 positive Pt in past 14-21 Days: No - Review of Systems Constitutional: No Symptoms Eyes: No Symptoms Ears, Nose, & Throat: No Symptoms Respiratory: Dyspnea Cardiac: No Symptoms Abdominal/Gastrointestinal: No Symptoms Genitourinary Symptoms: No Symptoms Musculoskeletal: Other (Bilateral lower extremity leg pain) Skin: Other (Bilateral lower extremity cellulitis) Neurological: No Symptoms Psychological: No Symptoms Endocrine: No Symptoms Hematologic/Lymphatic: No Symptoms Immunological/Allergic: No Symptoms All Other Systems: Reviewed and Negative - Past Medical History Pertinent Past Medical History: Yes Neurological History: No Pertinent History ENT History: No Pertinent History Cardiac History: Arrhythmia, Congestive Heart Failure, Coronary Artery Disease, High Cholesterol, Hypertension, Myocardial Infarction (CT), Peripheral Vascular Disease Respiratory History: CHF, COPD Endocrine Medical History: No Pertinent History, Diabetes Type II Musculoskeletal History: No Pertinent History GI Medical History: No Pertinent History History: No Pertinent History Psycho-Social History: Anxiety, Depression Male Reproductive Disorders: No Pertinent History - Past Surgical History Past Surgical History: Yes (heart surgery 2006) Neuro Surgical History: No Pertinent History Cardiac: CABG, Cardiac Catheterization, Cardiac Stent Respiratory: No Pertinent History Gastrointestinal: No Pertinent History Genitourinary: No Pertinent History Musculoskeletal: No Pertinent History Male Surgical History: No Pertinent History Other Surgical History: stents in both legs for PAD - Social History Smoking Status: Former smoker How long have you smoked: 40 years Exposure to second hand smoke: No Drug Use: none Patient Lives Alone: No - Nursing Vital Signs Nursing Vital Signs: Initial Vital Signs O2 Sat by Pulse Oximetry 97 03/02/20 15:38 Pain Scale Pain Intensity 5 - Physical Exam General Appearance: mild distress, alert, anxiety, obese Eye Exam: PERRL/EOMI, eyes nml inspection Ears, Nose, Throat Exam: hearing grossly normal, normal ENT inspection, normal pharynx Neck Exam: normal inspection, non-tender, supple, full range of motion Respiratory Exam: normal breath sounds, lungs clear, airway intact, No chest tenderness, No respiratory distress Cardiovascular/Chest Exam: normal heart sounds, regular rate/rhythm Abdominal/Gastrointestinal Exam: soft, normal bowel sounds, No tenderness Rectal Exam: not done Extremity Exam: normal range of motion, pelvis stable, swelling (Lateral lower extremities from the knees distally with associated redness and tenderness. There are palpable pedal pulses that are present bilaterally.) Neurologic Exam: alert, oriented x 3, cooperative, academic intern II-XII nml as tested, normal mood/affect, sensation nml Skin Exam: other (See above skin of legs exam) Lymphatic Exam: No adenopathy SpO2 Interpretation: normal - Course Nursing assessment & vital signs reviewed: Yes EKG Interpreted by Me: RATE ([id number]), NORMAL AXIS, NORMAL INTERVALS, NORMAL QRS, Other (There is no acute ischemia present. There is improvement on the EKG today compared to the comparison EKG dated 01/08/2019.) Ordered Tests: Active Orders 24 hr Category Date Time Status [employer] STAT Care 03/02/20 15:29 Active EKG-ER Only STAT Care 03/02/20 15:28 Active IV Insertion STAT Care 03/02/20 15:28 Active Pulse Oximetry (ED) STAT Care 03/02/20 15:28 Active CHEST 1 VIEW (PORTABLE) Stat Exams 03/02/20 15:29 Taken CHEST WITH CONTRAST [CT] Stat Exams 03/02/20 16:25 Taken BLOOD CULTURE Stat Lab 03/02/20 15:29 Ordered CBC W DIFF Stat Lab 03/02/20 15:28 Completed CMP Stat Lab 03/02/20 15:28 Completed D-DIMER QUANTITATIVE Stat Lab 03/02/20 15:28 Completed Lactic Acid Stat Lab 03/02/20 15:28 Ordered NT PRO BNP Stat Lab 03/02/20 15:28 Completed PROTIME WITH INR Stat Lab 03/02/20 15:28 Completed TROPONIN Q3H Lab 03/02/20 15:30 Completed TROPONIN Q3H Lab 03/02/20 18:30 Ordered TROPONIN Q3H Lab 03/02/20 21:30 Ordered TROPONIN Q3H Lab 03/03/20 00:30 Ordered TROPONIN Q3H Lab 03/03/20 03:30 Ordered Respiratory Therapy Assessment DAILY RT 03/02/20 16:00 Completed Medication Summary Discontinued Medications Generic Name Dose Route Start Last Admin Trade Name Freq PRN Reason Stop Dose Admin Albuterol Sulfate Confirm 03/02/20 15:45 Proventil 2.5 Mg/3 Ml Neb Administered 03/02/20 15:46 Dose 2.5 mg IH .STK-MED ONE Albuterol Sulfate 2.5 mg 03/02/20 16:01 03/02/20 16:01 Proventil 2.5 Mg/3 Ml Neb IH 03/02/20 16:02 2.5 mg STAT ONE Administration Bumetanide 1 mg 03/02/20 15:30 03/02/20 15:51 Bumex 1 Mg IV 03/02/20 15:31 1 mg STAT ONE Administration Bumetanide Confirm 03/02/20 15:42 Bumex 1 Mg Administered 03/02/20 15:43 Dose 1 mg .ROUTE .STK-MED ONE Levofloxacin/Dextrose 500 mg in 100 mls @ 100 mls/hr 03/02/20 16:59 03/02/20 17:07 Levofloxacin 500mg/100ml D5w IV 03/02/20 17:58 100 mls/hr STAT STA 100 mls/hr Administration Levofloxacin/Dextrose Confirm 03/02/20 17:06 Levofloxacin 500mg/100ml D5w Administered 03/02/20 17:07 Dose 500 mg in 100 mls @ ud IV .STK-MED ONE Methylprednisolone Sodium Succinate 125 mg 03/02/20 15:28 03/02/20 15:51 Solu-Medrol 125 Mg IV 03/02/20 15:29 125 mg STAT ONE Administration Methylprednisolone Sodium Succinate Confirm 03/02/20 15:42 Solu-Medrol 125 Mg Administered 03/02/20 15:43 Dose 125 mg .ROUTE .K-MED ONE Lab/Rad Data: Laboratory Result Diagrams 03/02/20 15:28 03/02/20 15:28 Laboratory Results 03/02/20 03/02/20 03/02/20 Range/Units 15:30 15:28 15:28 WBC (4.0-10.5) K/mm3 RBC (4.1-5.6) M/mm3 Hgb (12.5-18.0) gm/dl Hct (42-50) % MCV (78-100) fl MCH (26-32) pg MCHC (32-36) g/dl RDW (11.5-14.0) % Plt Count (150-450) K/mm3 MPV (7.5-11.0) fl Gran % (36.0-66.0) % Eos # (Auto) (0-0.5) Absolute Lymphs (auto) (1.0-4.6) Absolute Monos (auto) (0.0-1.3) Lymphocytes % (24.0-44.0) % Monocytes % (0.0-12.0) % Eosinophils % (0.00-5.0) % Basophils % (0.0-0.4) % Absolute Granulocytes (1.4-6.9) Basophils # (0-0.4) PT 12.4 (8.83-12.87) SECONDS INR 1.10 (0.8-3.0) D-Dimer 680 H* (215-500) ng/mL Sodium 142 (137-145) mmol/L Potassium 3.2 L (3.5-5.1) mmol/L Chloride 105 (98-107) mmol/L Carbon Dioxide 27 (22-30) mmol/L BUN 9 (9-20) mg/dL Creatinine 1.21 (0.66-1.25) mg/dL Estimated GFR > 60.0 ML/MIN Glucose 144 H (74-106) mg/dL Calcium 8.7 (8.4-10.2) mg/dL Total Bilirubin 0.80 (0.2-1.3) mg/dL AST 53 (17-59) U/L ALT 49 (0-50) U/L Alkaline Phosphatase 86 (38-126) U/L Troponin I 0.073 H* (0.000-0.034) ng/mL NT-Pro-B Natriuret Pep 1200 H (0-900) pg/mL Serum Total Protein 6.6 (6.3-8.2) g/dL Albumin 3.8 (3.5-5.0) g/dL 03/02/20 Range/Units 15:28 WBC 8.2 (4.0-10.5) K/mm3 RBC 3.98 L (4.1-5.6) M/mm3 Hgb 11.5 L (12.5-18.0) gm/dl Hct 36.3 L (42-50) % MCV 91.2 (78-100) fl MCH 28.9 (26-32) pg MCHC 31.7 L (32-36) g/dl RDW 16.1 H (11.5-14.0) % Plt Count 287 (150-450) K/mm3 MPV 10.6 (7.5-11.0) fl Gran % 61.8 (36.0-66.0) % Eos # (Auto) 0.83 H (0-0.5) Absolute Lymphs (auto) 1.54 (1.0-4.6) Absolute Monos (auto) 0.68 (0.0-1.3) Lymphocytes % 18.7 L (24.0-44.0) % Monocytes % 8.3 (0.0-12.0) % Eosinophils % 10.1 H (0.00-5.0) % Basophils % 1.1 (0.0-0.4) % Absolute Granulocytes 5.10 (1.4-6.9) Basophils # 0.09 (0-0.4) PT (8.83-12.87) SECONDS INR (0.8-3.0) D-Dimer (215-500) ng/mL Sodium (137-145) mmol/L Potassium (3.5-5.1) mmol/L Chloride (98-107) mmol/L Carbon Dioxide (22-30) mmol/L BUN (9-20) mg/dL Creatinine (0.66-1.25) mg/dL Estimated GFR ML/MIN Glucose (74-106) mg/dL Calcium (8.4-10.2) mg/dL Total Bilirubin (0.2-1.3) mg/dL AST (17-59) U/L ALT (0-50) U/L Alkaline Phosphatase (38-126) U/L Troponin I (0.000-0.034) ng/mL NT-Pro-B Natriuret Pep (0-900) pg/mL Serum Total Protein (6.3-8.2) g/dL Albumin (3.5-5.0) g/dL - Progress Progress: improved, re-examined Air Movement: fair Progress Note: 03/02/20 18:33 CTA of the chest reveals no evidence of any acute cardiopulmonary disease. We clarified with radiology and there is no evidence of pulmonary emboli. Blood Culture(s) Obtained: Yes Discussed with Dr.: Other (Javan Gallegos at [facility]) Counseled pt/family regarding: lab results, diagnosis, rad results - Departure Departure Disposition: Transfer Clinical Impression: Shortness of breath, CHF (congestive heart failure), Elevated troponin, Bilateral lower leg cellulitis Condition: Stable Critical Care Time: Yes Critical Care Time(excluding separately billable procedures): Critical 30-74 mins Referrals: BREANNE CORTEZ [Primary Care Provider] - Instructions: Heart Failure
[2020-03-02] MEDS ORDERED: BUMEX 1 MG IV ONE (15:30)
[2020-03-02] MEDS ORDERED: solu-MEDROL 125 MG ONE (15:42)
[2020-03-02] MEDS ORDERED: BUMEX 1 MG ONE (15:42)
[2020-03-02] MEDS ORDERED: PROVENTIL 2.5 MG/3 ML NEB IH ONE ×2 (15:45→16:01)
[2020-03-02 16:37] LABS: INR 1.1 (0.8-3.0); PROTIME 12.4 SECONDS (8.83-12.87)
[2020-03-02 16:38] LABS: Hematocrit 36.3 % (42-50); Hemoglobin 11.5 gm/dl (12.5-18.0); Mean Cell Volume 91.2 fl (78-100); Mean Corpuscular Hemoglobin 28.9 pg (26-32); Red Blood Count 3.98 M/mm3 (4.1-5.6); White Blood Count 8.2 K/mm3 (4.0-10.5)
[2020-03-02 16:39] LABS: BASOPHIL % 1.1 % (0.0-0.4); Basophil (Absolute #) 0.09 (0-0.4); Eosinophil % 10.1 % (0.00-5.0); Eosinophil (Absolute #) 0.83 (0-0.5); Lymphocyte (Absolute #) 1.54 (1.0-4.6); Lymphocytes % 18.7 % (24.0-44.0); Mean Corpuscular Hgb Concent. 31.7 g/dl (32-36); Mean Platelet Volume 10.6 fl (7.5-11.0); Monocyte (Absolute #) 0.68 (0.0-1.3); Monocytes % 8.3 % (0.0-12.0); Neutrophil % 61.8 % (36.0-66.0); Platelet Count 287 K/mm3 (150-450); Red Cell Distribution Width 16.1 % (11.5-14.0)
[2020-03-02 16:40] LABS: BLOOD UREA NITROGEN 9 mg/dL (9-20); CHLORIDE 105 mmol/L (98-107); Carbon Dioxide 27 mmol/L (22-30); Creatinine 1 1.21 mg/dL (0.66-1.25); Glucose 144 mg/dL (74-106); Potassium 3.2 mmol/L (3.5-5.1); SODIUM 142 mmol/L (137-145)
[2020-03-02 16:41] LABS: ALBUMIN 3.8 g/dL (3.5-5.0); ALKALINE PHOSPHATASE 86 U/L (38-126); Calcium 8.7 mg/dL (8.4-10.2); NT PRO BNP 1200 pg/mL (0-900); SGOT/AST 53 U/L (17-59); SGPT/ALT 49 U/L (0-50); Total Protein 6.6 g/dL (6.3-8.2)
[2020-03-02] MEDS ORDERED: Levofloxacin 500MG/100ML D5W 500 MG/100 ML BAG IV STA (16:59)
[2020-03-02] MEDS ORDERED: Levofloxacin 500MG/100ML D5W 500 MG/100 ML BAG IV ONE (17:06)
[2020-03-02 18:42] VITALS: BP 181/56; PULSE 74; O2SAT 97
--- NOTE | 2020-03-02 20:03 | XRAY ---
Indication: Short of breath. Comparison: January 08, 2019. Portable chest remains clear. Heart and mediastinal structures within normal limits again with CABG surgery. Bony thorax intact again with mild degenerative changes. Impression: Continued nonacute chest with chronic features.
--- NOTE | 2020-03-02 20:03 | XRAY ---
Indication: Short of breath. Elevated d-dimer. COPD. Multiple contiguous axial images obtained through the chest using 100 cc Isovue 370 contrast and PE protocol. Comparison: October 18, 2018. There is satisfactory opacification of the pulmonary arteries to include the lobar and segmental branches. Again no pulmonary embolus. Heart is not enlarged again with CABG surgery. Aorta remains minimally calcified without aneurysm/dissection. No pathologic mediastinal/hilar lymphadenopathy. Lungs again demonstrates minimal bilateral dependent atelectasis, minimal bilateral pleural thickening, scattered fibrosis/scarring, and biapical subpleural cystic changes. No suspicious pulmonary mass, infiltrate, or effusion. Bony thorax intact again with mild degenerative changes throughout the spine. Limited upper abdomen demonstrates fatty liver. Impression: 1. Continued negative pulmonary embolus. No new or acute cardiopulmonary abnormalities. 2. Again chronic findings including fibrosis/scarring, pleural thickening, biapical subpleural cystic changes, and fatty liver. Comment: Preliminary interpretation was made by [facility]. No critical discrepancy.
== END 2020-03-02 19:16 | disposition short-term general hospital (02) ==
LOC: ED 15:21
DX: R06.02 Shortness of breath (principal); I50.9 Heart failure, unspecified; R74.8 Abnormal levels of other serum enzymes; L03.116 Cellulitis of left lower limb; I10 Essential (primary) hypertension; L03.115 Cellulitis of right lower limb; J44.9 Chronic obstructive pulmonary disease, unspecified; Z79.899 Other long term (current) drug therapy; I73.9 Peripheral vascular disease, unspecified; I25.10 Atherosclerotic heart disease of native coronary artery without angina pectoris
CPT/HCPCS: 36000; 36415; 71045; 71260; 80053; 83605; 83880; 84484; 85025; 85379; 85610; 87040; 93005; 93041; 94640; 94760; 96365; 96374; 96375; 99285; 99291; J1956; J2930; J7609; A9270-GY

== ENCOUNTER 2020-04-01 14:07 | Inpatient (IN) | payer MEDICARE ==
--- NOTE | 2020-04-01 14:12 | ERPHSYRPT ---
- History of Present Illness Time Seen by Provider: 04/01/20 14:12 Source: patient Exam Limitations: clinical condition Physician History: This is an obese 65-year-old diabetic gentleman who is a patient of Alee Cortez and presents to the emergency department with shortness of breath. Patient states that he has recurrent shortness of breath that is significant enough to seek medical attention every 4 to 6 weeks. Patient has a history of hypertension, COPD, CHF, coronary artery disease and peripheral vascular disease. Patient is no longer on Brilinta and is only taking Eliquis as an anticoagulant. He takes Bumex, glipizide, lisinopril, metoprolol and isosorbide mononitrate. Patient denies chest pain. He has no abdominal pain. Patient was at his primary care clinic at [facility] where he just had his bilateral lower extremities wrapped this morning. Timing/Duration: day(s) (A few) Activities at Onset: none Severity of Dyspnea-Max: moderate Severity of Dyspnea-Current: moderate Possible Cause: frequent episodes, chronic episodes Modifying Factors: Improves With: nothing Associated Symptoms: constant, wheezing, No chest pain/discomfort Allergies/Adverse Reactions: ceftriaxone [From Rocephin] Allergy (Severe, Verified 03/02/20 15:48) Anaphylactic Reaction Penicillins Allergy (Unknown, Verified 03/02/20 15:48) Home Medications: Isosorbide Mononitrate 30 mg [Imdur 30 MG] 60 mg PO DAILY 10/08/15 [ History] Atorvastatin Calcium [Lipitor] 80 mg PO HS 10/09/15 [History] Nitroglycerin [Nitrostat] 0.4 mg SL UD 10/09/15 [History] lisinopriL [Zestril] 20 mg PO DAILY 10/09/15 [History] Albuterol 2.5 mg/0.5 ml [PROVENTIL Solution 2.5 MG/0.5 ML] 2.5 mg IH Q12H PRN PRN 04/04/18 [History] Fenofibrate 50 mg PO DAILY 04/04/18 [History] Ranolazine 500 MG [Ranexa 500 MG] 500 mg PO BID 04/04/18 [History] Umeclidinium Brm/Vilanterol Tr [Anoro Ellipta 62.5-25 Mcg INH] 1 each IH DAILY 04/04/18 [History] Apixaban [Eliquis] 5 mg PO BID 10/18/18 [History] Bumetanide 1 mg [Bumex 1 mg] 2 mg PO BID 10/18/18 [History] Glipizide 2.5 mg [Glucotrol Xl 2.5 MG] 2.5 mg PO DAILY 10/18/18 [History] Tamsulosin HCl 0.4 mg [Flomax 0.4 MG] 0.4 mg PO DAILY 10/18/18 [History] Allopurinol 300 mg [Zyloprim 300 mg] 300 mg PO DAILY 01/08/19 [History] Ergocalciferol (Vitamin D2) [Vitamin D2] 50,000 unit PO WEEKLY 01/08/19 [History] Meloxicam 7.5 mg [Mobic 7.5 MG] 7.5 mg PO DAILY 01/08/19 [History] Metoprolol Tartrate 25 mg [Lopressor 25MG Tab] 25 mg PO BID 01/08/19 [History] Hx Tetanus, Diphtheria Vaccination/Date Given: No Hx Influenza Vaccination/Date Given: Yes Hx Pneumococcal Vaccination/Date Given: Yes Travel Risk - International Travel Have you traveled outside of the country in past 3 weeks: No - Coronavirus Screening Are you exhibiting any of the following symptoms?: Yes Symptoms: Shortness of Breath Close contact with a COVID-19 positive Pt in past 14-21 Days: No - Review of Systems Constitutional: No Symptoms Eyes: No Symptoms Ears, Nose, & Throat: No Symptoms Respiratory: Dyspnea, Wheezing Cardiac: No Symptoms Abdominal/Gastrointestinal: No Symptoms Genitourinary Symptoms: No Symptoms Musculoskeletal: No Symptoms Skin: No Symptoms Neurological: No Symptoms Psychological: No Symptoms Endocrine: No Symptoms Hematologic/Lymphatic: No Symptoms Immunological/Allergic: No Symptoms All Other Systems: Reviewed and Negative - Past Medical History Pertinent Past Medical History: Yes Neurological History: No Pertinent History ENT History: No Pertinent History Cardiac History: Arrhythmia, Congestive Heart Failure, Coronary Artery Disease, High Cholesterol, Hypertension, Myocardial Infarction ([place]), Peripheral Vascular Disease Respiratory History: CHF, COPD Endocrine Medical History: No Pertinent History, Diabetes Type II Musculoskeletal History: No Pertinent History GI Medical History: No Pertinent History History: No Pertinent History Psycho-Social History: Anxiety, Depression Male Reproductive Disorders: No Pertinent History - Past Surgical History Past Surgical History: Yes (heart surgery 2006) Neuro Surgical History: No Pertinent History Cardiac: CABG, Cardiac Catheterization, Cardiac Stent Respiratory: No Pertinent History Gastrointestinal: No Pertinent History Genitourinary: No Pertinent History Musculoskeletal: No Pertinent History Male Surgical History: No Pertinent History Other Surgical History: stents in both legs for PAD - Social History Smoking Status: Former smoker How long have you smoked: 40 years Exposure to second hand smoke: No Drug Use: none Patient Lives Alone: No - Nursing Vital Signs Nursing Vital Signs: Initial Vital Signs Temperature 98.7 F 04/01/20 14:11 Pulse Rate 82 04/01/20 14:11 Respiratory Rate 30 H 04/01/20 14:11 Blood Pressure 199/72 04/01/20 14:11 O2 Sat by Pulse Oximetry 96 04/01/20 14:11 Pain Scale Pain Intensity 4 - Physical Exam General Appearance: moderate distress, alert, anxiety, obese Eye Exam: PERRL/EOMI, eyes nml inspection Ears, Nose, Throat Exam: hearing grossly normal, normal ENT inspection, normal pharynx Neck Exam: normal inspection, non-tender, supple, full range of motion Respiratory Exam: respiratory distress (Mild), airway intact, wheezing (Bilateral expiratory), No chest tenderness Cardiovascular/Chest Exam: normal heart sounds, regular rate/rhythm, normal peripheral pulses Abdominal/Gastrointestinal Exam: soft, normal bowel sounds, No tenderness Rectal Exam: not done Extremity Exam: non-tender, normal range of motion, swelling (Bilateral lower extremities are wrapped from the toes proximally to below the knees.) Neurologic Exam: alert, oriented x 3, cooperative, zmt operator II-XII nml as tested, normal mood/affect Skin Exam: normal color, warm, dry Lymphatic Exam: No adenopathy SpO2 Interpretation: normal O2 Delivery: Nasal Cannula - Course Nursing assessment & vital signs reviewed: Yes EKG Interpreted by Me: RATE (71), Sinus Rhythm, NORMAL AXIS, NORMAL INTERVALS, Other (Prolonged QT. There are no acute ischemic changes on this EKG. When compared to EKG performed on 03/02/2020, there are no new changes.) Ordered Tests: Active Orders 24 hr Category Date Time Status Supervisor Continuous [employer] STAT Care 04/01/20 14:20 Active EKG-ER Only STAT Care 04/01/20 14:17 Active IV Insertion STAT Care 04/01/20 14:17 Active Pulse Oximetry (ED) STAT Care 04/01/20 14:17 Active CHEST 1 VIEW (PORTABLE) Stat Exams 04/01/20 14:20 Completed BLOOD CULTURE Stat Lab 04/01/20 14:55 Received CBC W DIFF Stat Lab 04/01/20 14:15 Completed CMP Stat Lab 04/01/20 14:15 Completed Lactic Acid Stat Lab 04/01/20 14:24 Completed Lactic Acid Stat Lab 04/01/20 16:27 Completed MAGNESIUM Stat Lab 04/01/20 14:15 Completed NT PRO BNP Stat Lab 04/01/20 14:15 Completed PROTIME WITH INR Stat Lab 04/01/20 14:15 Completed TROPONIN Q3H Lab 04/01/20 14:15 Completed TROPONIN Q3H Lab 04/01/20 17:26 Completed TROPONIN Q3H Lab 04/01/20 20:30 Ordered TROPONIN Q3H Lab 04/01/20 23:30 Ordered TROPONIN Q3H Lab 04/02/20 02:30 Ordered UA W/RFX UR CULTURE Stat Lab 04/01/20 15:38 Completed Respiratory Therapy Assessment DAILY RT 04/01/20 14:17 Active Transfer Order Routine Transfer 04/01/20 Ordered Medication Summary Discontinued Medications Generic Name Dose Route Start Last Admin Trade Name Freq PRN Reason Stop Dose Admin Albuterol Sulfate Confirm 04/01/20 15:15 Proventil Solution 2.5 Mg/0.5 Ml Administered 04/01/20 15:16 Dose 10 mg .STK-MED ONE Albuterol Sulfate 10 mg 04/01/20 15:18 04/01/20 15:20 Proventil Solution 2.5 Mg/0.5 Ml IH 04/01/20 15:19 10 mg STAT ONE Administration Albuterol/Ipratropium 3 ml 04/01/20 14:14 04/01/20 14:16 Duoneb 0.5-3 Mg/3 Ml Neb IH 04/01/20 14:15 3 ml STAT ONE Administration Albuterol/Ipratropium Confirm 04/01/20 14:14 Duoneb 0.5-3 Mg/3 Ml Neb Administered 04/01/20 14:15 Dose 3 ml IH .STK-MED ONE Bumetanide 1 mg 04/01/20 14:20 04/01/20 14:37 Bumex 1 Mg IV 04/01/20 14:21 1 mg STAT ONE Administration Bumetanide Confirm 04/01/20 14:35 Bumex 1 Mg Administered 04/01/20 14:36 Dose 1 mg .ROUTE .STK-MED ONE Methylprednisolone Sodium Succinate 125 mg 04/01/20 14:17 04/01/20 14:37 Solu-Medrol 125 Mg IV 04/01/20 14:18 125 mg STAT ONE Administration Methylprednisolone Sodium Succinate Confirm 04/01/20 14:35 Solu-Medrol 125 Mg Administered 04/01/20 14:36 Dose 125 mg .ROUTE .STK-MED ONE Sodium Chloride Confirm 04/01/20 15:15 Sodium Chloride 3 Ml Ud Nebules Administered 04/01/20 15:16 Dose 9 ml IH .STK-MED ONE Lab/Rad Data: Laboratory Result Diagrams 04/01/20 14:15 04/01/20 14:15 Laboratory Results 04/01/20 04/01/20 04/01/20 Range/Units 17:26 16:27 15:38 WBC (4.0-10.5) K/mm3 RBC (4.1-5.6) M/mm3 Hgb (12.5-18.0) gm/dl Hct (42-50) % MCV (78-100) fl MCH (26-32) pg MCHC (32-36) g/dl RDW (11.5-14.0) % Plt Count (150-450) K/mm3 MPV (7.5-11.0) fl Gran % (36.0-66.0) % Eos # (Auto) (0-0.5) Absolute Lymphs (auto) (1.0-4.6) Absolute Monos (auto) (0.0-1.3) Lymphocytes % (24.0-44.0) % Monocytes % (0.0-12.0) % Eosinophils % (0.00-5.0) % Basophils % (0.0-0.4) % Absolute Granulocytes (1.4-6.9) Basophils # (0-0.4) PT (8.83-12.87) SECONDS INR (0.8-3.0) Sodium (137-145) mmol/L Potassium (3.5-5.1) mmol/L Chloride (98-107) mmol/L Carbon Dioxide (22-30) mmol/L Anion Gap (5-15) MEQ/L BUN (9-20) mg/dL Creatinine (0.66-1.25) mg/dL Estimated GFR ML/MIN Glucose (74-106) mg/dL Lactic Acid 2.1 H (0.4-2.0) Calcium (8.4-10.2) mg/dL Magnesium (1.6-2.3) mg/dL Total Bilirubin (0.2-1.3) mg/dL AST (17-59) U/L ALT (0-50) U/L Alkaline Phosphatase (38-126) U/L Troponin I 0.030 (0.000-0.034) ng/mL NT-Pro-B Natriuret Pep (0-900) pg/mL Serum Total Protein (6.3-8.2) g/dL Albumin (3.5-5.0) g/dL Urine Color YELLOW (YELLOW) Urine Appearance CLEAR (CLEAR) Urine pH 5.0 (5-6) Ur Specific Parnell 1.009 (1.005-1.025) Urine Protein NEGATIVE (Negative) Urine Ketones NEGATIVE (NEGATIVE) Urine Blood NEGATIVE (0-5) Jonathon/ul Urine Nitrite NEGATIVE (NEGATIVE) Urine Bilirubin NEGATIVE (NEGATIVE) Urine Urobilinogen NEGATIVE (0-1) mg/dL Ur Leukocyte Esterase NEGATIVE (NEGATIVE) Urine WBC (Auto) NONE (0-5) /HPF Urine RBC (Auto) NONE (0-2) /HPF U Epithel Cells (Auto) NONE (FEW) /HPF Urine Bacteria (Auto) NONE (NEGATIVE) /HPF Urine Mucus (Auto) SLIGHT (NEGATIVE) /HPF Urine Culture Reflexed NO (NO) Urine Glucose >=500 (NEGATIVE) mg/dL Influenza Type A Ag (NEGATIVE) Influenza Type B Ag (NEGATIVE) RSV (PCR) (Negative) SARS-CoV-2 (PCR) (NEGATIVE) 04/01/20 04/01/20 04/01/20 Range/Units 15:00 14:24 14:21 WBC (4.0-10.5) K/mm3 RBC (4.1-5.6) M/mm3 Hgb (12.5-18.0) gm/dl Hct (42-50) % MCV (78-100) fl MCH (26-32) pg MCHC (32-36) g/dl RDW (11.5-14.0) % Plt Count (150-450) K/mm3 MPV (7.5-11.0) fl Gran % (36.0-66.0) % Eos # (Auto) (0-0.5) Absolute Lymphs (auto) (1.0-4.6) Absolute Monos (auto) (0.0-1.3) Lymphocytes % (24.0-44.0) % Monocytes % (0.0-12.0) % Eosinophils % (0.00-5.0) % Basophils % (0.0-0.4) % Absolute Granulocytes (1.4-6.9) Basophils # (0-0.4) PT (8.83-12.87) SECONDS INR (0.8-3.0) Sodium (137-145) mmol/L Potassium (3.5-5.1) mmol/L Chloride (98-107) mmol/L Carbon Dioxide (22-30) mmol/L Anion Gap (5-15) MEQ/L BUN (9-20) mg/dL Creatinine (0.66-1.25) mg/dL Estimated GFR ML/MIN Glucose (74-106) mg/dL Lactic Acid 3.0 H (0.4-2.0) Calcium (8.4-10.2) mg/dL Magnesium (1.6-2.3) mg/dL Total Bilirubin (0.2-1.3) mg/dL AST (17-59) U/L ALT (0-50) U/L Alkaline Phosphatase (38-126) U/L Troponin I (0.000-0.034) ng/mL NT-Pro-B Natriuret Pep (0-900) pg/mL Serum Total Protein (6.3-8.2) g/dL Albumin (3.5-5.0) g/dL Urine Color (YELLOW) Urine Appearance (CLEAR) Urine pH (5-6) Ur Specific Parnell (1.005-1.025) Urine Protein (Negative) Urine Ketones (NEGATIVE) Urine Blood (0-5) Jonathon/ul Urine Nitrite (NEGATIVE) Urine Bilirubin (NEGATIVE) Urine Urobilinogen (0-1) mg/dL Ur Leukocyte Esterase (NEGATIVE) Urine WBC (Auto) (0-5) /HPF Urine RBC (Auto) (0-2) /HPF U Epithel Cells (Auto) (FEW) /HPF Urine Bacteria (Auto) (NEGATIVE) /HPF Urine Mucus (Auto) (NEGATIVE) /HPF Urine Culture Reflexed (NO) Urine Glucose (NEGATIVE) mg/dL Influenza Type A Ag NEGATIVE (NEGATIVE) Influenza Type B Ag NEGATIVE (NEGATIVE) RSV (PCR) NEGATIVE (Negative) SARS-CoV-2 (PCR) NEGATIVE (NEGATIVE) 04/01/20 04/01/20 04/01/20 Range/Units 14:15 14:15 14:15 WBC (4.0-10.5) K/mm3 RBC (4.1-5.6) M/mm3 Hgb (12.5-18.0) gm/dl Hct (42-50) % MCV (78-100) fl MCH (26-32) pg MCHC (32-36) g/dl RDW (11.5-14.0) % Plt Count (150-450) K/mm3 MPV (7.5-11.0) fl Gran % (36.0-66.0) % Eos # (Auto) (0-0.5) Absolute Lymphs (auto) (1.0-4.6) Absolute Monos (auto) (0.0-1.3) Lymphocytes % (24.0-44.0) % Monocytes % (0.0-12.0) % Eosinophils % (0.00-5.0) % Basophils % (0.0-0.4) % Absolute Granulocytes (1.4-6.9) Basophils # (0-0.4) PT 12.1 (8.83-12.87) SECONDS INR 1.07 (0.8-3.0) Sodium 142 (137-145) mmol/L Potassium 3.7 (3.5-5.1) mmol/L Chloride 107 (98-107) mmol/L Carbon Dioxide 26 (22-30) mmol/L Anion Gap 12.7 (5-15) MEQ/L BUN 8 L (9-20) mg/dL Creatinine 0.97 (0.66-1.25) mg/dL Estimated GFR > 60.0 ML/MIN Glucose 129 H (74-106) mg/dL Lactic Acid (0.4-2.0) Calcium 8.9 (8.4-10.2) mg/dL Magnesium 1.9 (1.6-2.3) mg/dL Total Bilirubin 0.70 (0.2-1.3) mg/dL AST 74 H (17-59) U/L ALT 61 H (0-50) U/L Alkaline Phosphatase 82 (38-126) U/L Troponin I 0.032 (0.000-0.034) ng/mL NT-Pro-B Natriuret Pep 852 (0-900) pg/mL Serum Total Protein 6.1 L (6.3-8.2) g/dL Albumin 3.6 (3.5-5.0) g/dL Urine Color (YELLOW) Urine Appearance (CLEAR) Urine pH (5-6) Ur Specific Parnell (1.005-1.025) Urine Protein (Negative) Urine Ketones (NEGATIVE) Urine Blood (0-5) Jonathon/ul Urine Nitrite (NEGATIVE) Urine Bilirubin (NEGATIVE) Urine Urobilinogen (0-1) mg/dL Ur Leukocyte Esterase (NEGATIVE) Urine WBC (Auto) (0-5) /HPF Urine RBC (Auto) (0-2) /HPF U Epithel Cells (Auto) (FEW) /HPF Urine Bacteria (Auto) (NEGATIVE) /HPF Urine Mucus (Auto) (NEGATIVE) /HPF Urine Culture Reflexed (NO) Urine Glucose (NEGATIVE) mg/dL Influenza Type A Ag (NEGATIVE) Influenza Type B Ag (NEGATIVE) RSV (PCR) (Negative) SARS-CoV-2 (PCR) (NEGATIVE) 04/01/20 Range/Units 14:15 WBC 9.8 (4.0-10.5) K/mm3 RBC 4.28 (4.1-5.6) M/mm3 Hgb 12.2 L (12.5-18.0) gm/dl Hct 38.9 L (42-50) % MCV 90.9 (78-100) fl MCH 28.5 (26-32) pg MCHC 31.4 L (32-36) g/dl RDW 15.8 H (11.5-14.0) % Plt Count 202 (150-450) K/mm3 MPV 10.8 (7.5-11.0) fl Gran % 56.8 (36.0-66.0) % Eos # (Auto) 1.74 H (0-0.5) Absolute Lymphs (auto) 1.77 (1.0-4.6) Absolute Monos (auto) 0.66 (0.0-1.3) Lymphocytes % 18.1 L (24.0-44.0) % Monocytes % 6.7 (0.0-12.0) % Eosinophils % 17.8 H (0.00-5.0) % Basophils % 0.6 (0.0-0.4) % Absolute Granulocytes 5.57 (1.4-6.9) Basophils # 0.06 (0-0.4) PT (8.83-12.87) SECONDS INR (0.8-3.0) Sodium (137-145) mmol/L Potassium (3.5-5.1) mmol/L Chloride (98-107) mmol/L Carbon Dioxide (22-30) mmol/L Anion Gap (5-15) MEQ/L BUN (9-20) mg/dL Creatinine (0.66-1.25) mg/dL Estimated GFR ML/MIN Glucose (74-106) mg/dL Lactic Acid (0.4-2.0) Calcium (8.4-10.2) mg/dL Magnesium (1.6-2.3) mg/dL Total Bilirubin (0.2-1.3) mg/dL AST (17-59) U/L ALT (0-50) U/L Alkaline Phosphatase (38-126) U/L Troponin I (0.000-0.034) ng/mL NT-Pro-B Natriuret Pep (0-900) pg/mL Serum Total Protein (6.3-8.2) g/dL Albumin (3.5-5.0) g/dL Urine Color (YELLOW) Urine Appearance (CLEAR) Urine pH (5-6) Ur Specific Parnell (1.005-1.025) Urine Protein (Negative) Urine Ketones (NEGATIVE) Urine Blood (0-5) Jonathon/ul Urine Nitrite (NEGATIVE) Urine Bilirubin (NEGATIVE) Urine Urobilinogen (0-1) mg/dL Ur Leukocyte Esterase (NEGATIVE) Urine WBC (Auto) (0-5) /HPF Urine RBC (Auto) (0-2) /HPF U Epithel Cells (Auto) (FEW) /HPF Urine Bacteria (Auto) (NEGATIVE) /HPF Urine Mucus (Auto) (NEGATIVE) /HPF Urine Culture Reflexed (NO) Urine Glucose (NEGATIVE) mg/dL Influenza Type A Ag (NEGATIVE) Influenza Type B Ag (NEGATIVE) RSV (PCR) (Negative) SARS-CoV-2 (PCR) (NEGATIVE) - Progress Progress: improved, re-examined Air Movement: good Progress Note: 04/01/20 16:34 Patient denies chest pain. Chest x-ray shows no acute pulmonary abnormality. 04/01/20 18:24 Medical decision making: This patient appears to have COPD exacerbation. He is not having any chest pain his troponins are normal x2 and his BNP is also normal. Patient's chest x-ray does not show pneumonia or any other acute pulmonary process. I spoke with Dr. Phillips who is covering for no doc patients. We will bring the patient into the hospital, provide nebulizer treatments, evaluation and treatment with respiratory therapy, steroid injections, repeat labs and diuretic therapy. Dr. Phillips also would like to have the patient's family bring the CPAP machine from home to have respiratory therapy work with this patient so that he is using it more comfortably at night. We will do a rapid COVID-19 test. It appears the patient has never had one performed. Since he is being admitted we will test him. 04/01/20 20:13 The patient's COVID test is negative. Blood Culture(s) Obtained: Yes Counseled pt/family regarding: lab results, diagnosis, rad results - Departure Departure Disposition: In-patient Admission Clinical Impression: COPD exacerbation Condition: Stable Critical Care Time: No Referrals: BREANNE CORTEZ [Primary Care Provider] - Instructions: Chronic Obstructive Pulmonary Disease
[2020-04-01] MEDS ORDERED: DUONEB 0.5-3 MG/3 ml Neb IH ONE ×3 (14:14→22:09)
[2020-04-01] MEDS ORDERED: solu-MEDROL 125 MG IV ONE (14:17)
[2020-04-01] MEDS ORDERED: BUMEX 1 MG IV ONE (14:20)
[2020-04-01] MEDS ORDERED: BUMEX 1 MG ONE (14:35)
[2020-04-01] MEDS ORDERED: solu-MEDROL 125 MG ONE (14:35)
[2020-04-01 14:40] LABS: Absolute Neutrophil Ct (ANC) 5.57 (1.4-6.9); BASOPHIL % 0.6 % (0.0-0.4); Basophil (Absolute #) 0.06 (0-0.4); Eosinophil % 17.8 % (0.00-5.0); Eosinophil (Absolute #) 1.74 (0-0.5); Hematocrit 38.9 % (42-50); Hemoglobin 12.2 gm/dl (12.5-18.0); Lymphocyte (Absolute #) 1.77 (1.0-4.6); Lymphocytes % 18.1 % (24.0-44.0); Mean Cell Volume 90.9 fl (78-100); Mean Corpuscular Hemoglobin 28.5 pg (26-32); Mean Corpuscular Hgb Concent. 31.4 g/dl (32-36); Mean Platelet Volume 10.8 fl (7.5-11.0); Monocyte (Absolute #) 0.66 (0.0-1.3); Monocytes % 6.7 % (0.0-12.0); Neutrophil % 56.8 % (36.0-66.0); Platelet Count 202 K/mm3 (150-450); Red Blood Count 4.28 M/mm3 (4.1-5.6); Red Cell Distribution Width 15.8 % (11.5-14.0); White Blood Count 9.8 K/mm3 (4.0-10.5)
[2020-04-01 14:50] LABS: INR 1.07 (0.8-3.0); PROTIME 12.1 SECONDS (8.83-12.87)
--- NOTE | 2020-04-01 14:54 | XRAY ---
Indication: Short of breath. COPD. Comparison: March 02, 2020. Portable chest remains clear. Heart is not enlarged again with CABG surgery. Bony thorax intact again with mild degenerative changes. Impression: Continued nonacute chest with chronic features.
[2020-04-01 15:05] LABS: ALBUMIN 3.6 g/dL (3.5-5.0); ALKALINE PHOSPHATASE 82 U/L (38-126); ANION GAP 12.7 MEQ/L (5-15); BLOOD UREA NITROGEN 8 mg/dL (9-20); CHLORIDE 107 mmol/L (98-107); Calcium 8.9 mg/dL (8.4-10.2); Carbon Dioxide 26 mmol/L (22-30); Creatinine 1 0.97 mg/dL (0.66-1.25); Glucose 129 mg/dL (74-106); MAGNESIUM 1.9 mg/dL (1.6-2.3); NT PRO BNP 852 pg/mL (0-900); Potassium 3.7 mmol/L (3.5-5.1); SGOT/AST 74 U/L (17-59); SGPT/ALT 61 U/L (0-50); SODIUM 142 mmol/L (137-145); Total Protein 6.1 g/dL (6.3-8.2)
[2020-04-01] MEDS ORDERED: PROVENTIL Solution 2.5 MG/0.5 ML IH ONE ×2 (15:15→15:18)
[2020-04-01] MEDS ORDERED: Sodium Chloride 3 ML UD NEBULES IH ONE (15:15)
[2020-04-01 15:33] LABS: Appearance CLEAR (CLEAR); Bilirubin NEGATIVE (NEGATIVE); Blood NEGATIVE Ery/ul (0-5); Glucose >=500 mg/dL (NEGATIVE); Ketones NEGATIVE (NEGATIVE); Leukocyte Esterase NEGATIVE (NEGATIVE); Mucus SLIGHT /HPF (NEGATIVE); Nitrite NEGATIVE (NEGATIVE); Protein,Urine Dip NEGATIVE (Negative); Specific Gravity 1.009 (1.005-1.025); Urobilinogen NEGATIVE mg/dL (0-1)
[2020-04-01 15:40] LABS: INFLUENZA A NEGATIVE (NEGATIVE); INFLUENZA B NEGATIVE (NEGATIVE); RESPIRATORY SYNCTIAL VIRUS NEGATIVE (Negative)
[2020-04-01] MEDS ORDERED: TYLENOL 325 MG PO PRN (20:58)
[2020-04-01] MEDS ORDERED: Zofran 4 MG/2 ML VIAL IV PRN (20:58)
[2020-04-01] MEDS: DUONEB 0.5-3 MG/3 ml Neb IH SCH (22:13)
[2020-04-01] MEDS: Lopressor 25MG Tab PO SCH (22:36)
[2020-04-01] MEDS: HUMULIN R SQ PRN (22:36)
[2020-04-01] MEDS: Ranexa 500 MG PO SCH (22:36)
[2020-04-01] MEDS: Zestril 20 MG PO SCH (22:36)
[2020-04-01] MEDS: ELIQUIS 2.5 MG TABLET PO SCH (22:41)
[2020-04-01] MEDS: solu-MEDROL 125 MG IV SCH (23:22)
[2020-04-02] MEDS: DUONEB 0.5-3 MG/3 ml Neb IH SCH ×3 (02:58→11:55)
[2020-04-02] MEDS: solu-MEDROL 125 MG IV SCH (04:24)
[2020-04-02 04:43] LABS: Absolute Neutrophil Ct (ANC) 7.69 (1.4-6.9); BASOPHIL % 0.2 % (0.0-0.4); Basophil (Absolute #) 0.02 (0-0.4); Eosinophil % 0.1 % (0.00-5.0); Eosinophil (Absolute #) 0.01 (0-0.5); Hematocrit 39.2 % (42-50); Hemoglobin 12.4 gm/dl (12.5-18.0); Lymphocyte (Absolute #) 0.71 (1.0-4.6); Lymphocytes % 8.3 % (24.0-44.0); Mean Cell Volume 91.6 fl (78-100); Mean Corpuscular Hgb Concent. 31.6 g/dl (32-36); Mean Platelet Volume 10.8 fl (7.5-11.0); Monocyte (Absolute #) 0.08 (0.0-1.3); Monocytes % 0.9 % (0.0-12.0); Neutrophil % 90.5 % (36.0-66.0); Platelet Count 231 K/mm3 (150-450); Red Blood Count 4.28 M/mm3 (4.1-5.6); Red Cell Distribution Width 15.5 % (11.5-14.0); White Blood Count 8.5 K/mm3 (4.0-10.5)
[2020-04-02 05:11] LABS: ALBUMIN 3.8 g/dL (3.5-5.0); ALKALINE PHOSPHATASE 90 U/L (38-126); ANION GAP 13.6 MEQ/L (5-15); BLOOD UREA NITROGEN 13 mg/dL (9-20); CHLORIDE 104 mmol/L (98-107); Calcium 9.2 mg/dL (8.4-10.2); Carbon Dioxide 26 mmol/L (22-30); Creatinine 1 1.04 mg/dL (0.66-1.25); Glucose 176 mg/dL (74-106); NT PRO BNP 1810 pg/mL (0-900); PREALBUMIN 22.09 mg/dL (17.6-36.0); SGOT/AST 43 U/L (17-59); SGPT/ALT 56 U/L (0-50); SODIUM 139 mmol/L (137-145); Total Protein 6.4 g/dL (6.3-8.2)
[2020-04-02 06:05] LABS: Potassium 4.7 mmol/L (3.5-5.1)
[2020-04-02] MEDS: HUMULIN R SQ PRN ×2 (09:11→11:51)
[2020-04-02] MEDS: ELIQUIS 2.5 MG TABLET PO SCH (09:13)
[2020-04-02] MEDS: Zestril 20 MG PO SCH (09:13)
[2020-04-02] MEDS: Lopressor 25MG Tab PO SCH (09:13)
[2020-04-02] MEDS: Ranexa 500 MG PO SCH (09:14)
[2020-04-02] MEDS ORDERED: BUMEX 1 MG PO SCH ×2 (10:00→17:00)
[2020-04-02 11:46] VITALS: BP 143/65; PULSE 55; O2SAT 98
--- NOTE | 2020-04-02 13:46 | PCM.SSS ---
History of Present Illness - Chief Complaint Chief Complaint: copd exac History of Present Illness: is a 65 year old male admitted through ER with COPD exacerbation. Patient has flare ups every 4-6 weeks and was admitted to [facility] most recently with same symptoms. He is followed by Dr Andrew Cortez. His PCP is Dr Yonatan Cortez. Patient has sleep apnea but does not wear his CPap machine ,states it doesn't fit right. He denies chest pain or productive cough or fever. - Review of Systems Constitutional: Fatigue Ears, Nose, & Throat: No Symptoms Respiratory: Short Of Breath Cardiac: No Symptoms, Other (is on a diuretic) Abdominal/Gastrointestinal: No Symptoms Genitourinary Symptoms: No Symptoms Musculoskeletal: No Symptoms Skin: No Symptoms Neurological: No Symptoms Psychological: No Symptoms Endocrine: No Symptoms Medications & Allergies Home Medications: Home Medication List Isosorbide Mononitrate 30 mg [Imdur 30 MG] 60 mg PO DAILY 10/08/15 [History Confirmed 04/01/20] Atorvastatin Calcium [Lipitor] 80 mg PO HS 10/09/15 [History Confirmed 04/01/20] Nitroglycerin [Nitrostat] 0.4 mg SL UD 10/09/15 [History Confirmed 04/01/20] lisinopriL [Zestril] 20 mg PO DAILY 10/09/15 [History Confirmed 04/01/20] Albuterol 2.5 mg/0.5 ml [PROVENTIL Solution 2.5 MG/0.5 ML] 2.5 mg IH Q12H PRN PRN 04/04/18 [History Confirmed 04/01/20] Fenofibrate 50 mg PO DAILY 04/04/18 [History Confirmed 04/01/20] Ranolazine 500 MG [Ranexa 500 MG] 500 mg PO BID 04/04/18 [History Confirmed 04/01/20] Umeclidinium Brm/Vilanterol Tr [Anoro Ellipta 62.5-25 Mcg INH] 1 each IH DAILY 04/04/18 [History Confirmed 04/01/20] Apixaban [Eliquis] 5 mg PO BID 10/18/18 [History Confirmed 04/01/20] Bumetanide 1 mg [Bumex 1 mg] 2 mg PO BID 10/18/18 [History Confirmed 04/01/20] Glipizide 2.5 mg [Glucotrol Xl 2.5 MG] 2.5 mg PO DAILY 10/18/18 [History Confirmed 04/01/20] Tamsulosin HCl 0.4 mg [Flomax 0.4 MG] 0.4 mg PO DAILY 10/18/18 [History Confirmed 04/01/20] Allopurinol 300 mg [Zyloprim 300 mg] 300 mg PO DAILY 01/08/19 [History Confirmed 04/01/20] Ergocalciferol (Vitamin D2) [Vitamin D2] 50,000 unit PO WEEKLY 01/08/19 [History Confirmed 04/01/20] Meloxicam 7.5 mg [Mobic 7.5 MG] 7.5 mg PO DAILY 01/08/19 [History Con firmed 04/01/20] Metoprolol Tartrate 25 mg [Lopressor 25MG Tab] 25 mg PO BID 01/08/19 [History Confirmed 04/01/20] Aspirin 81 gm Chew [Baby Aspirin 81 mg Chew] 81 mg 04/01/20 [History] Prednisone [Jerrell] 2 mg PO DAILY 04/01/20 [History Confirmed 04/01/20] Prednisone 10 mg [Deltasone 10 mg] 10 mg PO TID #30 tablet 04/02/20 [Rx] Allergies/Adverse Reactions: Allergies Allergy/AdvReac Type Severity Reaction Status Date / Time ceftriaxone [From Rocephin] Allergy Severe Anaphylactic Verified 03/02/20 15:48 Reaction Penicillins Allergy Unknown Verified 03/02/20 15:48 - Past Medical History Past Medical History: Yes Neurological History: No Pertinent History ENT History: No Pertinent History Cardiac History: Arrhythmia, Congestive Heart Failure, Coronary Artery Disease, High Cholesterol, Hypertension, Myocardial Infarction (CT), Peripheral Vascular Disease Respiratory History: CHF, COPD Endocrine Medical History: No Pertinent History, Diabetes Type II Musculoskelatal History: No Pertinent History GI Medical History: No Pertinent History History: No Pertinent History Pyscho-Social History: Anxiety, Depression Male Reproductive Disorders: No Pertinent History - Past Surgical History Past Surgical History: Yes (heart stent 2018) Neuro Surgical History: No Pertinent History Cardiac History: CABG, Cardiac Catheterization, Cardiac Stent Respiratory Surgery: No Pertinent History GI Surgical History: No Pertinent History Genitourinary Surgical Hx: No Pertinent History Musculskeletal Surgical Hx: No Pertinent History Male Surgical History: No Pertinent History Other Surgical History: stents in both legs for PAD - Social History Smoking Status: Former smoker How long have you smoked: 40 years Exposure to second hand smoke: No Alcohol: None Drug Use: none - Physical Exam Vital Signs: Vital Signs - 24 hr Temp Pulse Resp BP Pulse Ox 04/02/20 11:44 97.8 F 55 L 12 143/65 98 04/02/20 10:55 60 12 98 04/02/20 08:00 97.6 F 60 25 H 167/72 96 04/02/20 07:50 99 04/02/20 04:00 97.6 F 45 L 22 150/68 93 L 04/02/20 02:58 48 L 24 93 L 04/02/20 00:00 97.4 F 84 24 144/72 94 L 04/01/20 22:13 74 24 92 L 04/01/20 21:55 97.8 F 74 24 175/80 96 04/01/20 21:27 97.8 F 74 24 175/80 96 04/01/20 19:00 68 26 H 193/97 96 04/01/20 18:18 98.6 F 64 24 166/68 96 04/01/20 16:02 73 170/92 97 04/01/20 15:22 69 20 97 04/01/20 15:11 60 18 97 04/01/20 14:31 95 04/01/20 14:18 78 24 98 04/01/20 14:11 98.7 F 82 30 H 199/72 90 L Oxygen-Last 24 hours Oxygen Flowrate (L/min)-RT 3 Oxygen Flowrate (L/min)-RT 3 General Appearance: no apparent distress Neurologic Exam: alert, oriented x 3, cooperative, normal mood/affect Eye Exam: PERRL/EOMI, other (right periorbital edema lower lid(chronic per patient)) Ears, Nose, Throat Exam: normal ENT inspection Neck Exam: other (short stature,no mass,no JVD) Respiratory Exam: other (good aeration right lung ,diminished BSleft base,no wheeze no ronchi) Cardiovascular Exam: regular rate/rhythm, other (trace ankle edema) Gastrointestinal/Abdomen Exam: soft, normal bowel sounds (nontender) Skin Exam: normal color, warm, dry Wound Assessment: Skin/Wound Assessment Wound/Incision Assessment Start: 04/01/20 22:04 Text: Status: Active Freq: Q6H Protocol: Document 04/02/20 10:00 BA (Rec: 04/02/20 11:29 BA [id number]) Wound/Incision Assessment Right Calf Wound Assessment Admission Wound Stage Non Pressure Wound Dressing Status Dry & Intact Drainage Amount None Drainage Odor None/Absent Primary Dressing coban Comment cellulitis being treated at [facility] by therapy dept. dressings being changed M,W,F last changed today Left Calf Wound Assessment Admission Wound Stage Non Pressure Wound Dressing Status Dry & Intact Drainage Amount None Drainage Odor None/Absent Primary Dressing coban Comment cellulitis being treated at [facility] by therapy dept. dressings being changed M,W,F last changed today Wound Photo Photo Taken No Results - Labs Lab/Micro Results: Accuchecks Date 04/02/20 Date 04/02/20 Date 04/01/20 Time 11:30 Time 07:30 Time 22:00 Accucheck Value: 206 Accucheck Value: 173 Accucheck Value: 282 Lab Results-Last 24 Hours 04/01/20 04/01/20 04/01/20 Range/Units 14:15 14:15 14:15 WBC 9.8 (4.0-10.5) K/mm3 RBC 4.28 (4.1-5.6) M/mm3 Hgb 12.2 L (12.5-18.0) gm/dl Hct 38.9 L (42-50) % MCV 90.9 (78-100) fl MCH 28.5 (26-32) pg MCHC 31.4 L (32-36) g/dl RDW 15.8 H (11.5-14.0) % Plt Count 202 (150-450) K/mm3 MPV 10.8 (7.5-11.0) fl Gran % 56.8 (36.0-66.0) % Eos # (Auto) 1.74 H (0-0.5) Absolute Lymphs (auto) 1.77 (1.0-4.6) Absolute Monos (auto) 0.66 (0.0-1.3) Lymphocytes % 18.1 L (24.0-44.0) % Monocytes % 6.7 (0.0-12.0) % Eosinophils % 17.8 H (0.00-5.0) % Basophils % 0.6 (0.0-0.4) % Absolute Granulocytes 5.57 (1.4-6.9) Basophils # 0.06 (0-0.4) PT 12.1 (8.83-12.87) SECONDS INR 1.07 (0.8-3.0) Sodium 142 (137-145) mmol/L Potassium 3.7 (3.5-5.1) mmol/L Chloride 107 (98-107) mmol/L Carbon Dioxide 26 (22-30) mmol/L Anion Gap 12.7 (5-15) MEQ/L BUN 8 L (9-20) mg/dL Creatinine 0.97 (0.66-1.25) mg/dL Estimated GFR > 60.0 ML/MIN Glucose 129 H (74-106) mg/dL Hemoglobin A1c (4.5-6.0) % Lactic Acid (0.4-2.0) Calcium 8.9 (8.4-10.2) mg/dL Magnesium 1.9 (1.6-2.3) mg/dL Total Bilirubin 0.70 (0.2-1.3) mg/dL AST 74 H (17-59) U/L ALT 61 H (0-50) U/L Alkaline Phosphatase 82 (38-126) U/L Troponin I (0.000-0.034) ng/mL NT-Pro-B Natriuret Pep 852 (0-900) pg/mL Serum Total Protein 6.1 L (6.3-8.2) g/dL Albumin 3.6 (3.5-5.0) g/dL Prealbumin (17.6-36.0) mg/dL Urine Color (YELLOW) Urine Appearance (CLEAR) Urine pH (5-6) Ur Specific [place] (1.005-1.025) Urine Protein (Negative) Urine Ketones (NEGATIVE) Urine Blood (0-5) Jonathon/ul Urine Nitrite (NEGATIVE) Urine Bilirubin (NEGATIVE) Urine Urobilinogen (0-1) mg/dL Ur Leukocyte Esterase (NEGATIVE) Urine WBC (Auto) (0-5) /HPF Urine RBC (Auto) (0-2) /HPF U Epithel Cells (Auto) (FEW) /HPF Urine Bacteria (Auto) (NEGATIVE) /HPF Urine Mucus (Auto) (NEGATIVE) /HPF Urine Culture Reflexed (NO) Urine Glucose (NEGATIVE) mg/dL Influenza Type A Ag (NEGATIVE) Influenza Type B Ag (NEGATIVE) RSV (PCR) (Negative) SARS-CoV-2 (PCR) (NEGATIVE) 04/01/20 04/01/20 04/01/20 Range/Units 14:15 14:21 14:24 WBC (4.0-10.5) K/mm3 RBC (4.1-5.6) M/mm3 Hgb (12.5-18.0) gm/dl Hct (42-50) % MCV (78-100) fl MCH (26-32) pg MCHC (32-36) g/dl RDW (11.5-14.0) % Plt Count (150-450) K/mm3 MPV (7.5-11.0) fl Gran % (36.0-66.0) % Eos # (Auto) (0-0.5) Absolute Lymphs (auto) (1.0-4.6) Absolute Monos (auto) (0.0-1.3) Lymphocytes % (24.0-44.0) % Monocytes % (0.0-12.0) % Eosinophils % (0.00-5.0) % Basophils % (0.0-0.4) % Absolute Granulocytes (1.4-6.9) Basophils # (0-0.4) PT (8.83-12.87) SECONDS INR (0.8-3.0) Sodium (137-145) mmol/L Potassium (3.5-5.1) mmol/L Chloride (98-107) mmol/L Carbon Dioxide (22-30) mmol/L Anion Gap (5-15) MEQ/L BUN (9-20) mg/dL Creatinine (0.66-1.25) mg/dL Estimated GFR ML/MIN Glucose (74-106) mg/dL Hemoglobin A1c (4.5-6.0) % Lactic Acid 3.0 H (0.4-2.0) Calcium (8.4-10.2) mg/dL Magnesium (1.6-2.3) mg/dL Total Bilirubin (0.2-1.3) mg/dL AST (17-59) U/L ALT (0-50) U/L Alkaline Phosphatase (38-126) U/L Troponin I 0.032 (0.000-0.034) ng/mL NT-Pro-B Natriuret Pep (0-900) pg/mL Serum Total Protein (6.3-8.2) g/dL Albumin (3.5-5.0) g/dL Prealbumin (17.6-36.0) mg/dL Urine Color (YELLOW) Urine Appearance (CLEAR) Urine pH (5-6) Ur Specific [place] (1.005-1.025) Urine Protein (Negative) Urine Ketones (NEGATIVE) Urine Blood (0-5) Jonathon/ul Urine Nitrite (NEGATIVE) Urine Bilirubin (NEGATIVE) Urine Urobilinogen (0-1) mg/dL Ur Leukocyte Esterase (NEGATIVE) Urine WBC (Auto) (0-5) /HPF Urine RBC (Auto) (0-2) /HPF U Epithel Cells (Auto) (FEW) /HPF Urine Bacteria (Auto) (NEGATIVE) /HPF Urine Mucus (Auto) (NEGATIVE) /HPF Urine Culture Reflexed (NO) Urine Glucose (NEGATIVE) mg/dL Influenza Type A Ag (NEGATIVE) Influenza Type B Ag (NEGATIVE) RSV (PCR) (Negative) SARS-CoV-2 (PCR) NEGATIVE (NEGATIVE) 04/01/20 04/01/20 04/01/20 Range/Units 15:00 15:38 16:27 WBC (4.0-10.5) K/mm3 RBC (4.1-5.6) M/mm3 Hgb (12.5-18.0) gm/dl Hct (42-50) % MCV (78-100) fl MCH (26-32) pg MCHC (32-36) g/dl RDW (11.5-14.0) % Plt Count (150-450) K/mm3 MPV (7.5-11.0) fl Gran % (36.0-66.0) % Eos # (Auto) (0-0.5) Absolute Lymphs (auto) (1.0-4.6) Absolute Monos (auto) (0.0-1.3) Lymphocytes % (24.0-44.0) % Monocytes % (0.0-12.0) % Eosinophils % (0.00-5.0) % Basophils % (0.0-0.4) % Absolute Granulocytes (1.4-6.9) Basophils # (0-0.4) PT (8.83-12.87) SECONDS INR (0.8-3.0) Sodium (137-145) mmol/L Potassium (3.5-5.1) mmol/L Chloride (98-107) mmol/L Carbon Dioxide (22-30) mmol/L Anion Gap (5-15) MEQ/L BUN (9-20) mg/dL Creatinine (0.66-1.25) mg/dL Estimated GFR ML/MIN Glucose (74-106) mg/dL Hemoglobin A1c (4.5-6.0) % Lactic Acid 2.1 H (0.4-2.0) Calcium (8.4-10.2) mg/dL Magnesium (1.6-2.3) mg/dL Total Bilirubin (0.2-1.3) mg/dL AST (17-59) U/L ALT (0-50) U/L Alkaline Phosphatase (38-126) U/L Troponin I (0.000-0.034) ng/mL NT-Pro-B Natriuret Pep (0-900) pg/mL Serum Total Protein (6.3-8.2) g/dL Albumin (3.5-5.0) g/dL Prealbumin (17.6-36.0) mg/dL Urine Color YELLOW (YELLOW) Urine Appearance CLEAR (CLEAR) Urine pH 5.0 (5-6) Ur Specific [place] 1.009 (1.005-1.025) Urine Protein NEGATIVE (Negative) Urine Ketones NEGATIVE (NEGATIVE) Urine Blood NEGATIVE (0-5) Jonathon/ul Urine Nitrite NEGATIVE (NEGATIVE) Urine Bilirubin NEGATIVE (NEGATIVE) Urine Urobilinogen NEGATIVE (0-1) mg/dL Ur Leukocyte Esterase NEGATIVE (NEGATIVE) Urine WBC (Auto) NONE (0-5) /HPF Urine RBC (Auto) NONE (0-2) /HPF U Epithel Cells (Auto) NONE (FEW) /HPF Urine Bacteria (Auto) NONE (NEGATIVE) /HPF Urine Mucus (Auto) SLIGHT (NEGATIVE) /HPF Urine Culture Reflexed NO (NO) Urine Glucose >=500 (NEGATIVE) mg/dL Influenza Type A Ag NEGATIVE (NEGATIVE) Influenza Type B Ag NEGATIVE (NEGATIVE) RSV (PCR) NEGATIVE (Negative) SARS-CoV-2 (PCR) (NEGATIVE) 04/01/20 04/01/20 04/01/20 Range/Units 17:26 20:30 23:33 WBC (4.0-10.5) K/mm3 RBC (4.1-5.6) M/mm3 Hgb (12.5-18.0) gm/dl Hct (42-50) % MCV (78-100) fl MCH (26-32) pg MCHC (32-36) g/dl RDW (11.5-14.0) % Plt Count (150-450) K/mm3 MPV (7.5-11.0) fl Gran % (36.0-66.0) % Eos # (Auto) (0-0.5) Absolute Lymphs (auto) (1.0-4.6) Absolute Monos (auto) (0.0-1.3) Lymphocytes % (24.0-44.0) % Monocytes % (0.0-12.0) % Eosinophils % (0.00-5.0) % Basophils % (0.0-0.4) % Absolute Granulocytes (1.4-6.9) Basophils # (0-0.4) PT (8.83-12.87) SECONDS INR (0.8-3.0) Sodium (137-145) mmol/L Potassium (3.5-5.1) mmol/L Chloride (98-107) mmol/L Carbon Dioxide (22-30) mmol/L Anion Gap (5-15) MEQ/L BUN (9-20) mg/dL Creatinine (0.66-1.25) mg/dL Estimated GFR ML/MIN Glucose (74-106) mg/dL Hemoglobin A1c (4.5-6.0) % Lactic Acid (0.4-2.0) Calcium (8.4-10.2) mg/dL Magnesium (1.6-2.3) mg/dL Total Bilirubin (0.2-1.3) mg/dL AST (17-59) U/L ALT (0-50) U/L Alkaline Phosphatase (38-126) U/L Troponin I 0.030 0.023 0.018 (0.000-0.034) ng/mL NT-Pro-B Natriuret Pep (0-900) pg/mL Serum Total Protein (6.3-8.2) g/dL Albumin (3.5-5.0) g/dL Prealbumin (17.6-36.0) mg/dL Urine Color (YELLOW) Urine Appearance (CLEAR) Urine pH (5-6) Ur Specific [place] (1.005-1.025) Urine Protein (Negative) Urine Ketones (NEGATIVE) Urine Blood (0-5) Jonathon/ul Urine Nitrite (NEGATIVE) Urine Bilirubin (NEGATIVE) Urine Urobilinogen (0-1) mg/dL Ur Leukocyte Esterase (NEGATIVE) Urine WBC (Auto) (0-5) /HPF Urine RBC (Auto) (0-2) /HPF U Epithel Cells (Auto) (FEW) /HPF Urine Bacteria (Auto) (NEGATIVE) /HPF Urine Mucus (Auto) (NEGATIVE) /HPF Urine Culture Reflexed (NO) Urine Glucose (NEGATIVE) mg/dL Influenza Type A Ag (NEGATIVE) Influenza Type B Ag (NEGATIVE) RSV (PCR) (Negative) SARS-CoV-2 (PCR) (NEGATIVE) 04/02/20 04/02/20 04/02/20 Range/Units 04:28 04:30 08:00 WBC 8.5 (4.0-10.5) K/mm3 RBC 4.28 (4.1-5.6) M/mm3 Hgb 12.4 L (12.5-18.0) gm/dl Hct 39.2 L (42-50) % MCV 91.6 (78-100) fl MCH 29.0 (26-32) pg MCHC 31.6 L (32-36) g/dl RDW 15.5 H (11.5-14.0) % Plt Count 231 (150-450) K/mm3 MPV 10.8 (7.5-11.0) fl Gran % 90.5 H (36.0-66.0) % Eos # (Auto) 0.01 (0-0.5) Absolute Lymphs (auto) 0.71 L (1.0-4.6) Absolute Monos (auto) 0.08 (0.0-1.3) Lymphocytes % 8.3 L (24.0-44.0) % Monocytes % 0.9 (0.0-12.0) % Eosinophils % 0.1 (0.00-5.0) % Basophils % 0.2 (0.0-0.4) % Absolute Granulocytes 7.69 H (1.4-6.9) Basophils # 0.02 (0-0.4) PT (8.83-12.87) SECONDS INR (0.8-3.0) Sodium 139 (137-145) mmol/L Potassium 4.7 D (3.5-5.1) mmol/L Chloride 104 (98-107) mmol/L Carbon Dioxide 26 (22-30) mmol/L Anion Gap 13.6 (5-15) MEQ/L BUN 13 (9-20) mg/dL Creatinine 1.04 (0.66-1.25) mg/dL Estimated GFR > 60.0 ML/MIN Glucose 176 H (74-106) mg/dL Hemoglobin A1c 7.04 H (4.5-6.0) % Lactic Acid (0.4-2.0) Calcium 9.2 (8.4-10.2) mg/dL Magnesium (1.6-2.3) mg/dL Total Bilirubin 0.70 (0.2-1.3) mg/dL AST 43 (17-59) U/L ALT 56 H (0-50) U/L Alkaline Phosphatase 90 (38-126) U/L Troponin I (0.000-0.034) ng/mL NT-Pro-B Natriuret Pep 1810 H (0-900) pg/mL Serum Total Protein 6.4 (6.3-8.2) g/dL Albumin 3.8 (3.5-5.0) g/dL Prealbumin 22.09 (17.6-36.0) mg/dL Urine Color (YELLOW) Urine Appearance (CLEAR) Urine pH (5-6) Ur Specific [place] (1.005-1.025) Urine Protein (Negative) Urine Ketones (NEGATIVE) Urine Blood (0-5) Jonathon/ul Urine Nitrite (NEGATIVE) Urine Bilirubin (NEGATIVE) Urine Urobilinogen (0-1) mg/dL Ur Leukocyte Esterase (NEGATIVE) Urine WBC (Auto) (0-5) /HPF Urine RBC (Auto) (0-2) /HPF U Epithel Cells (Auto) (FEW) /HPF Urine Bacteria (Auto) (NEGATIVE) /HPF Urine Mucus (Auto) (NEGATIVE) /HPF Urine Culture Reflexed (NO) Urine Glucose (NEGATIVE) mg/dL Influenza Type A Ag (NEGATIVE) Influenza Type B Ag (NEGATIVE) RSV (PCR) (Negative) SARS-CoV-2 (PCR) (NEGATIVE) Accuchecks Date 04/02/20 Date 04/02/20 Date 04/01/20 Time 11:30 Time 07:30 Time 22:00 Accucheck Value: 206 Accucheck Value: 173 Accucheck Value: 282 - Radiology Impressions Radiology Exams & Impressions: Radiology Procedures Category Date Time Status CHEST 1 VIEW (PORTABLE) Stat Exams 04/01/20 14:20 Completed - Other Procedures and Tests Respiratory Therapy 04/01/20 14:17 Respiratory Therapy Assessment DAILY 04/01/20 20:58 Oxygen Nasal Cannula 2 lpm 04/01/20 21:21 Peak Expiratory Flow Rate DAILY 04/01/20 22:32 BiPap/CPAP ROUTINE Assessment/Plan (1) Acute exacerbation of chronic obstructive pulmonary disease (COPD) Current Visit: Yes Status: Acute Assessment & Plan: improved after wearing CPap overnight with new mask and with IV steroids,will see Dr Cortez tomorrow. Home on Prednisone 10 mg tid x 3 days then decrease per Dr Cortez Code(s): J44.1 - CHRONIC OBSTRUCTIVE PULMONARY DISEASE W (ACUTE) EXACERBATION (2) Sleep apnea Current Visit: Yes Status: Chronic Assessment & Plan: discussed importance of using proper mask and to wear every night. Code(s): G47.30 - SLEEP APNEA, UNSPECIFIED (3) CAD (coronary artery disease) Current Visit: No Status: Chronic Qualifiers: Coronary Disease-Associated Artery/Lesion type: [place] artery Assessment & Plan: follow with Tool Grinder Operator ,asymptomatic during admission. Code(s): I25.10 - ATHSCL HEART DISEASE OF [place] CORONARY ARTERY W/O ANG PCTRS (4) HTN (hypertension) Current Visit: No Status: Chronic Assessment & Plan: continue present meds Code(s): I10 - ESSENTIAL (PRIMARY) HYPERTENSION Hospital Summary - Hospital Course Hospital Course: Patient was admitted through ER with exacerbation of COPD. He has Sleep apnea without using his CPap,Hx HTN,CHF,CAD,DM2. He is oxgen dependent. Patient was given IV solumedrol and a new mask fitted for his CPap and tolerated it all night long . He is back to baseline today and will follow with Financial Sales Professional this week ,tomorrow. He will increase prednisone to 10mg tid and reduce dose per Dr Cortez. He has O2 set up at home and will continue on 2L/NC. - Vitals & Intake/Output Vital Signs: Vital Signs Temperature 97.8 F 04/02/20 11:44 Pulse Rate 55 L 04/02/20 11:44 Respiratory Rate 12 04/02/20 11:44 Blood Pressure 143/65 04/02/20 11:44 O2 Sat by Pulse Oximetry 98 04/02/20 11:44 Intake & Output: Intake & Output 03/31/20 04/01/20 04/02/20 04/03/20 11:59 11:59 11:59 11:59 Intake Total 1770 360 Output Total 750 Balance 1020 360 Weight 114.9 kg - Lab Result Diagrams: 04/02/20 04:30 04/02/20 04:28 Lab Results-Last 24 Hrs: Accuchecks Date 04/02/20 Date 04/02/20 Date 04/01/20 Time 11:30 Time 07:30 Time 22:00 Accucheck Value: 206 Accucheck Value: 173 Accucheck Value: 282 Lab Results-Last 24 Hours 04/01/20 04/01/20 04/01/20 Range/Units 14:15 14:15 14:15 WBC 9.8 (4.0-10.5) K/mm3 RBC 4.28 (4.1-5.6) M/mm3 Hgb 12.2 L (12.5-18.0) gm/dl Hct 38.9 L (42-50) % MCV 90.9 (78-100) fl MCH 28.5 (26-32) pg MCHC 31.4 L (32-36) g/dl RDW 15.8 H (11.5-14.0) % Plt Count 202 (150-450) K/mm3 MPV 10.8 (7.5-11.0) fl Gran % 56.8 (36.0-66.0) % Eos # (Auto) 1.74 H (0-0.5) Absolute Lymphs (auto) 1.77 (1.0-4.6) Absolute Monos (auto) 0.66 (0.0-1.3) Lymphocytes % 18.1 L (24.0-44.0) % Monocytes % 6.7 (0.0-12.0) % Eosinophils % 17.8 H (0.00-5.0) % Basophils % 0.6 (0.0-0.4) % Absolute Granulocytes 5.57 (1.4-6.9) Basophils # 0.06 (0-0.4) PT 12.1 (8.83-12.87) SECONDS INR 1.07 (0.8-3.0) Sodium 142 (137-145) mmol/L Potassium 3.7 (3.5-5.1) mmol/L Chloride 107 (98-107) mmol/L Carbon Dioxide 26 (22-30) mmol/L Anion Gap 12.7 (5-15) MEQ/L BUN 8 L (9-20) mg/dL Creatinine 0.97 (0.66-1.25) mg/dL Estimated GFR > 60.0 ML/MIN Glucose 129 H (74-106) mg/dL Hemoglobin A1c (4.5-6.0) % Lactic Acid (0.4-2.0) Calcium 8.9 (8.4-10.2) mg/dL Magnesium 1.9 (1.6-2.3) mg/dL Total Bilirubin 0.70 (0.2-1.3) mg/dL AST 74 H (17-59) U/L ALT 61 H (0-50) U/L Alkaline Phosphatase 82 (38-126) U/L Troponin I (0.000-0.034) ng/mL NT-Pro-B Natriuret Pep 852 (0-900) pg/mL Serum Total Protein 6.1 L (6.3-8.2) g/dL Albumin 3.6 (3.5-5.0) g/dL Prealbumin (17.6-36.0) mg/dL Urine Color (YELLOW) Urine Appearance (CLEAR) Urine pH (5-6) Ur Specific [place] (1.005-1.025) Urine Protein (Negative) Urine Ketones (NEGATIVE) Urine Blood (0-5) Jonathon/ul Urine Nitrite (NEGATIVE) Urine Bilirubin (NEGATIVE) Urine Urobilinogen (0-1) mg/dL Ur Leukocyte Esterase (NEGATIVE) Urine WBC (Auto) (0-5) /HPF Urine RBC (Auto) (0-2) /HPF U Epithel Cells (Auto) (FEW) /HPF Urine Bacteria (Auto) (NEGATIVE) /HPF Urine Mucus (Auto) (NEGATIVE) /HPF Urine Culture Reflexed (NO) Urine Glucose (NEGATIVE) mg/dL Influenza Type A Ag (NEGATIVE) Influenza Type B Ag (NEGATIVE) RSV (PCR) (Negative) SARS-CoV-2 (PCR) (NEGATIVE) 04/01/20 04/01/20 04/01/20 Range/Units 14:15 14:21 14:24 WBC (4.0-10.5) K/mm3 RBC (4.1-5.6) M/mm3 Hgb (12.5-18.0) gm/dl Hct (42-50) % MCV (78-100) fl MCH (26-32) pg MCHC (32-36) g/dl RDW (11.5-14.0) % Plt Count (150-450) K/mm3 MPV (7.5-11.0) fl Gran % (36.0-66.0) % Eos # (Auto) (0-0.5) Absolute Lymphs (auto) (1.0-4.6) Absolute Monos (auto) (0.0-1.3) Lymphocytes % (24.0-44.0) % Monocytes % (0.0-12.0) % Eosinophils % (0.00-5.0) % Basophils % (0.0-0.4) % Absolute Granulocytes (1.4-6.9) Basophils # (0-0.4) PT (8.83-12.87) SECONDS INR (0.8-3.0) Sodium (137-145) mmol/L Potassium (3.5-5.1) mmol/L Chloride (98-107) mmol/L Carbon Dioxide (22-30) mmol/L Anion Gap (5-15) MEQ/L BUN (9-20) mg/dL Creatinine (0.66-1.25) mg/dL Estimated GFR ML/MIN Glucose (74-106) mg/dL Hemoglobin A1c (4.5-6.0) % Lactic Acid 3.0 H (0.4-2.0) Calcium (8.4-10.2) mg/dL Magnesium (1.6-2.3) mg/dL Total Bilirubin (0.2-1.3) mg/dL AST (17-59) U/L ALT (0-50) U/L Alkaline Phosphatase (38-126) U/L Troponin I 0.032 (0.000-0.034) ng/mL NT-Pro-B Natriuret Pep (0-900) pg/mL Serum Total Protein (6.3-8.2) g/dL Albumin (3.5-5.0) g/dL Prealbumin (17.6-36.0) mg/dL Urine Color (YELLOW) Urine Appearance (CLEAR) Urine pH (5-6) Ur Specific [place] (1.005-1.025) Urine Protein (Negative) Urine Ketones (NEGATIVE) Urine Blood (0-5) Jonathon/ul Urine Nitrite (NEGATIVE) Urine Bilirubin (NEGATIVE) Urine Urobilinogen (0-1) mg/dL Ur Leukocyte Esterase (NEGATIVE) Urine WBC (Auto) (0-5) /HPF Urine RBC (Auto) (0-2) /HPF U Epithel Cells (Auto) (FEW) /HPF Urine Bacteria (Auto) (NEGATIVE) /HPF Urine Mucus (Auto) (NEGATIVE) /HPF Urine Culture Reflexed (NO) Urine Glucose (NEGATIVE) mg/dL Influenza Type A Ag (NEGATIVE) Influenza Type B Ag (NEGATIVE) RSV (PCR) (Negative) SARS-CoV-2 (PCR) NEGATIVE (NEGATIVE) 04/01/20 04/01/20 04/01/20 Range/Units 15:00 15:38 16:27 WBC (4.0-10.5) K/mm3 RBC (4.1-5.6) M/mm3 Hgb (12.5-18.0) gm/dl Hct (42-50) % MCV (78-100) fl MCH (26-32) pg MCHC (32-36) g/dl RDW (11.5-14.0) % Plt Count (150-450) K/mm3 MPV (7.5-11.0) fl Gran % (36.0-66.0) % Eos # (Auto) (0-0.5) Absolute Lymphs (auto) (1.0-4.6) Absolute Monos (auto) (0.0-1.3) Lymphocytes % (24.0-44.0) % Monocytes % (0.0-12.0) % Eosinophils % (0.00-5.0) % Basophils % (0.0-0.4) % Absolute Granulocytes (1.4-6.9) Basophils # (0-0.4) PT (8.83-12.87) SECONDS INR (0.8-3.0) Sodium (137-145) mmol/L Potassium (3.5-5.1) mmol/L Chloride (98-107) mmol/L Carbon Dioxide (22-30) mmol/L Anion Gap (5-15) MEQ/L BUN (9-20) mg/dL Creatinine (0.66-1.25) mg/dL Estimated GFR ML/MIN Glucose (74-106) mg/dL Hemoglobin A1c (4.5-6.0) % Lactic Acid 2.1 H (0.4-2.0) Calcium (8.4-10.2) mg/dL Magnesium (1.6-2.3) mg/dL Total Bilirubin (0.2-1.3) mg/dL AST (17-59) U/L ALT (0-50) U/L Alkaline Phosphatase (38-126) U/L Troponin I (0.000-0.034) ng/mL NT-Pro-B Natriuret Pep (0-900) pg/mL Serum Total Protein (6.3-8.2) g/dL Albumin (3.5-5.0) g/dL Prealbumin (17.6-36.0) mg/dL Urine Color YELLOW (YELLOW) Urine Appearance CLEAR (CLEAR) Urine pH 5.0 (5-6) Ur Specific [place] 1.009 (1.005-1.025) Urine Protein NEGATIVE (Negative) Urine Ketones NEGATIVE (NEGATIVE) Urine Blood NEGATIVE (0-5) Jonathon/ul Urine Nitrite NEGATIVE (NEGATIVE) Urine Bilirubin NEGATIVE (NEGATIVE) Urine Urobilinogen NEGATIVE (0-1) mg/dL Ur Leukocyte Esterase NEGATIVE (NEGATIVE) Urine WBC (Auto) NONE (0-5) /HPF Urine RBC (Auto) NONE (0-2) /HPF U Epithel Cells (Auto) NONE (FEW) /HPF Urine Bacteria (Auto) NONE (NEGATIVE) /HPF Urine Mucus (Auto) SLIGHT (NEGATIVE) /HPF Urine Culture Reflexed NO (NO) Urine Glucose >=500 (NEGATIVE) mg/dL Influenza Type A Ag NEGATIVE (NEGATIVE) Influenza Type B Ag NEGATIVE (NEGATIVE) RSV (PCR) NEGATIVE (Negative) SARS-CoV-2 (PCR) (NEGATIVE) 04/01/20 04/01/20 04/01/20 Range/Units 17:26 20:30 23:33 WBC (4.0-10.5) K/mm3 RBC (4.1-5.6) M/mm3 Hgb (12.5-18.0) gm/dl Hct (42-50) % MCV (78-100) fl MCH (26-32) pg MCHC (32-36) g/dl RDW (11.5-14.0) % Plt Count (150-450) K/mm3 MPV (7.5-11.0) fl Gran % (36.0-66.0) % Eos # (Auto) (0-0.5) Absolute Lymphs (auto) (1.0-4.6) Absolute Monos (auto) (0.0-1.3) Lymphocytes % (24.0-44.0) % Monocytes % (0.0-12.0) % Eosinophils % (0.00-5.0) % Basophils % (0.0-0.4) % Absolute Granulocytes (1.4-6.9) Basophils # (0-0.4) PT (8.83-12.87) SECONDS INR (0.8-3.0) Sodium (137-145) mmol/L Potassium (3.5-5.1) mmol/L Chloride (98-107) mmol/L Carbon Dioxide (22-30) mmol/L Anion Gap (5-15) MEQ/L BUN (9-20) mg/dL Creatinine (0.66-1.25) mg/dL Estimated GFR ML/MIN Glucose (74-106) mg/dL Hemoglobin A1c (4.5-6.0) % Lactic Acid (0.4-2.0) Calcium (8.4-10.2) mg/dL Magnesium (1.6-2.3) mg/dL Total Bilirubin (0.2-1.3) mg/dL AST (17-59) U/L ALT (0-50) U/L Alkaline Phosphatase (38-126) U/L Troponin I 0.030 0.023 0.018 (0.000-0.034) ng/mL NT-Pro-B Natriuret Pep (0-900) pg/mL Serum Total Protein (6.3-8.2) g/dL Albumin (3.5-5.0) g/dL Prealbumin (17.6-36.0) mg/dL Urine Color (YELLOW) Urine Appearance (CLEAR) Urine pH (5-6) Ur Specific [place] (1.005-1.025) Urine Protein (Negative) Urine Ketones (NEGATIVE) Urine Blood (0-5) Jonathon/ul Urine Nitrite (NEGATIVE) Urine Bilirubin (NEGATIVE) Urine Urobilinogen (0-1) mg/dL Ur Leukocyte Esterase (NEGATIVE) Urine WBC (Auto) (0-5) /HPF Urine RBC (Auto) (0-2) /HPF U Epithel Cells (Auto) (FEW) /HPF Urine Bacteria (Auto) (NEGATIVE) /HPF Urine Mucus (Auto) (NEGATIVE) /HPF Urine Culture Reflexed (NO) Urine Glucose (NEGATIVE) mg/dL Influenza Type A Ag (NEGATIVE) Influenza Type B Ag (NEGATIVE) RSV (PCR) (Negative) SARS-CoV-2 (PCR) (NEGATIVE) 04/02/20 04/02/20 04/02/20 Range/Units 04:28 04:30 08:00 WBC 8.5 (4.0-10.5) K/mm3 RBC 4.28 (4.1-5.6) M/mm3 Hgb 12.4 L (12.5-18.0) gm/dl Hct 39.2 L (42-50) % MCV 91.6 (78-100) fl MCH 29.0 (26-32) pg MCHC 31.6 L (32-36) g/dl RDW 15.5 H (11.5-14.0) % Plt Count 231 (150-450) K/mm3 MPV 10.8 (7.5-11.0) fl Gran % 90.5 H (36.0-66.0) % Eos # (Auto) 0.01 (0-0.5) Absolute Lymphs (auto) 0.71 L (1.0-4.6) Absolute Monos (auto) 0.08 (0.0-1.3) Lymphocytes % 8.3 L (24.0-44.0) % Monocytes % 0.9 (0.0-12.0) % Eosinophils % 0.1 (0.00-5.0) % Basophils % 0.2 (0.0-0.4) % Absolute Granulocytes 7.69 H (1.4-6.9) Basophils # 0.02 (0-0.4) PT (8.83-12.87) SECONDS INR (0.8-3.0) Sodium 139 (137-145) mmol/L Potassium 4.7 D (3.5-5.1) mmol/L Chloride 104 (98-107) mmol/L Carbon Dioxide 26 (22-30) mmol/L Anion Gap 13.6 (5-15) MEQ/L BUN 13 (9-20) mg/dL Creatinine 1.04 (0.66-1.25) mg/dL Estimated GFR > 60.0 ML/MIN Glucose 176 H (74-106) mg/dL Hemoglobin A1c 7.04 H (4.5-6.0) % Lactic Acid (0.4-2.0) Calcium 9.2 (8.4-10.2) mg/dL Magnesium (1.6-2.3) mg/dL Total Bilirubin 0.70 (0.2-1.3) mg/dL AST 43 (17-59) U/L ALT 56 H (0-50) U/L Alkaline Phosphatase 90 (38-126) U/L Troponin I (0.000-0.034) ng/mL NT-Pro-B Natriuret Pep 1810 H (0-900) pg/mL Serum Total Protein 6.4 (6.3-8.2) g/dL Albumin 3.8 (3.5-5.0) g/dL Prealbumin 22.09 (17.6-36.0) mg/dL Urine Color (YELLOW) Urine Appearance (CLEAR) Urine pH (5-6) Ur Specific [place] (1.005-1.025) Urine Protein (Negative) Urine Ketones (NEGATIVE) Urine Blood (0-5) Jonathon/ul Urine Nitrite (NEGATIVE) Urine Bilirubin (NEGATIVE) Urine Urobilinogen (0-1) mg/dL Ur Leukocyte Esterase (NEGATIVE) Urine WBC (Auto) (0-5) /HPF Urine RBC (Auto) (0-2) /HPF U Epithel Cells (Auto) (FEW) /HPF Urine Bacteria (Auto) (NEGATIVE) /HPF Urine Mucus (Auto) (NEGATIVE) /HPF Urine Culture Reflexed (NO) Urine Glucose (NEGATIVE) mg/dL Influenza Type A Ag (NEGATIVE) Influenza Type B Ag (NEGATIVE) RSV (PCR) (Negative) SARS-CoV-2 (PCR) (NEGATIVE) Micro Results-Entire Visit: Accuchecks Date 04/02/20 Date 04/02/20 Date 04/01/20 Time 11:30 Time 07:30 Time 22:00 Accucheck Value: 206 Accucheck Value: 173 Accucheck Value: 282 - Radiology Exams Ordered Rad Exams-Entire Visit: Radiology Procedures Category Date Time Status CHEST 1 VIEW (PORTABLE) Stat Exams 04/01/20 14:20 Completed - Procedures and Test Procedures and Tests throughout Hospitalization: Therapy Orders & Screens 04/01/20 14:17 Respiratory Therapy Assessment DAILY Comment: 04/01/20 20:58 EKG REPEAT IN AM Comment: Oxygen Nasal Cannula 2 lpm Comment: Respiratory Therapy Consult ROUTINE Comment: Reason For Exam: 04/01/20 21:21 Peak Expiratory Flow Rate DAILY Comment: Reason For Exam: 04/01/20 22:32 BiPap/CPAP ROUTINE Comment: CPAP 8CMH2O WITH 3L O2 AT NIGHT PER PT'S HOME Diagnosis: copd exac - Discharge Disposition: Home, Self-Care Condition: Stable Prescriptions: New Prednisone 10 mg [Deltasone 10 mg] 10 mg PO TID #30 tablet Continue Isosorbide Mononitrate 30 mg [Imdur 30 MG] 60 mg PO DAILY lisinopriL [Zestril] 20 mg PO DAILY Atorvastatin Calcium [Lipitor] 80 mg PO HS Nitroglycerin [Nitrostat] 0.4 mg SL UD Ranolazine 500 MG [Ranexa 500 MG] 500 mg PO BID Umeclidinium Brm/Vilanterol Tr [Anoro Ellipta 62.5-25 Mcg INH] 1 each IH DAILY Fenofibrate 50 mg PO DAILY Albuterol 2.5 mg/0.5 ml [PROVENTIL Solution 2.5 MG/0.5 ML] 2.5 mg IH Q12H PRN PRN PRN Reason: Shortness Of Breath/Wheezing Glipizide 2.5 mg [Glucotrol Xl 2.5 MG] 2.5 mg PO DAILY Bumetanide 1 mg [Bumex 1 mg] 2 mg PO BID Tamsulosin HCl 0.4 mg [Flomax 0.4 MG] 0.4 mg PO DAILY Apixaban [Eliquis] 5 mg PO BID Allopurinol 300 mg [Zyloprim 300 mg] 300 mg PO DAILY Ergocalciferol (Vitamin D2) [Vitamin D2] 50,000 unit PO WEEKLY Meloxicam 7.5 mg [Mobic 7.5 MG] 7.5 mg PO DAILY Metoprolol Tartrate 25 mg [Lopressor 25MG Tab] 25 mg PO BID Aspirin 81 gm Chew [Baby Aspirin 81 mg Chew] 81 mg Prednisone [Jerrell] 2 mg PO DAILY Instructions: Exacerbation of COPD, Prednisone Follow up with: BREANNE CORTEZ [Primary Care Provider] - 04/09/20 1:30 pm Forms: Discharge Instructions
[2020-04-02] MEDS ORDERED: solu-MEDROL 125 MG IV SCH (14:00)
[2020-04-02] MEDS ORDERED: Nitrostat 0.4 MG Tablet SL SCH (14:45)
[2020-04-02] MEDS ORDERED: NON-FORMULARY ITEM (Atorvastatin Calcium [Lipitor] 80 MG) PO SCH (22:00)
[2020-04-02] MEDS ORDERED: ZOCOR 20MG PO SCH (22:00)
[2020-04-03] MEDS ORDERED: MELOXICAM PO SCH (10:00)
[2020-04-03] MEDS ORDERED: FENOFIBRATE 50 MG PO SCH (10:00)
[2020-04-03] MEDS ORDERED: ZYLOPRIM 300 MG PO SCH (10:00)
[2020-04-03] MEDS ORDERED: Glucotrol Xl 2.5 MG PO SCH (10:00)
[2020-04-03] MEDS ORDERED: Tricor 145 MG PO SCH (10:00)
[2020-04-03] MEDS ORDERED: PREDNISONE 2 MG PO SCH (10:00)
[2020-04-03] MEDS ORDERED: Imdur 30 MG PO SCH (10:00)
[2020-04-03] MEDS ORDERED: Flomax 0.4 MG PO SCH (10:00)
[2020-04-04] MEDS ORDERED: VITAMIN D2 PO SCH (10:00)
== END 2020-04-02 14:30 | disposition home or self-care (01) | DRG 192 ==
LOC: ED 14:07 → MED SURG 20:54
PROVIDERS: ADMIT Family Medicine; ATTEND Family Medicine
DX: J44.1 Chronic obstructive pulmonary disease with (acute) exacerbation (principal); I10 Essential (primary) hypertension; I25.10 Atherosclerotic heart disease of native coronary artery without angina pectoris; G47.30 Sleep apnea, unspecified; Z99.81 Dependence on supplemental oxygen; Z79.899 Other long term (current) drug therapy
CPT/HCPCS: 36000; 36415; 71045; 80053; 81001; 82962; 83036; 83605; 83735; 83880; 84134; 84484; 85025; 85610; 87040; 87631; 93005; 93041; 94150; 94640; 94760; 96374; 96375; 99285; U0003; J1815; J2930; A9270-GY

== ENCOUNTER 2020-04-06 17:14 | Emergency (ER) | payer MEDICARE ==
[2020-04-06] MEDS ORDERED: NITRO-BID 2% UD PACKETS TOP ONE (17:26)
[2020-04-06] MEDS ORDERED: DUONEB 0.5-3 MG/3 ml Neb IH ONE ×2 (17:26→17:27)
[2020-04-06] MEDS ORDERED: Lasix 40 MG/4 ML IV ONE (17:26)
[2020-04-06] MEDS ORDERED: Lasix 40 MG/4 ML ONE (17:32)
[2020-04-06] MEDS ORDERED: NITRO-BID 2% UD PACKETS ONE (17:32)
[2020-04-06 17:49] LABS: A-aADO2 116; ABG HEMOGLOBIN 13.1; ABG POTASSIUM 3.4 (3.5-5.1); ABG SITE LEFT BRACHIAL; ARTERIAL BLD GAS O2 SATURATION 98.1 % (95-100); ARTERIAL BLOOD GAS BASE EXCESS 4.2 (-2.0-2.0); ARTERIAL BLOOD GAS FIO2 36 %; ARTERIAL BLOOD GAS PCO2 40 mmHg (35-45); ARTERIAL BLOOD GAS PO2 91 mmHg (75-100); ARTERIAL BLOOD GAS pH 7.46 (7.35-7.45); CARBOXYHEMOGLOBIN 1.8 % THgb (0.0-6.9); HCO3- 28.4 (22-28); HGB O2 SAT 95.2 g/dF (94-100); Lactic Acid 1.6 (0.4-2.0); Methhemoglobin 1.2 % (1.4-1.5); paO2 pAO1 0.44
[2020-04-06 17:52] LABS: Absolute Neutrophil Ct (ANC) 9.24 (1.4-6.9); BASOPHIL % 0.3 % (0.0-0.4); Basophil (Absolute #) 0.04 (0-0.4); Eosinophil % 6.3 % (0.00-5.0); Hematocrit 41.1 % (42-50); Hemoglobin 13.3 gm/dl (12.5-18.0); Lymphocyte (Absolute #) 1.65 (1.0-4.6); Lymphocytes % 13.1 % (24.0-44.0); Mean Cell Volume 90.1 fl (78-100); Mean Corpuscular Hemoglobin 29.2 pg (26-32); Mean Corpuscular Hgb Concent. 32.4 g/dl (32-36); Mean Platelet Volume 10.6 fl (7.5-11.0); Monocyte (Absolute #) 0.88 (0.0-1.3); Neutrophil % 73.3 % (36.0-66.0); Platelet Count 207 K/mm3 (150-450); Red Blood Count 4.56 M/mm3 (4.1-5.6); Red Cell Distribution Width 15.4 % (11.5-14.0); White Blood Count 12.6 K/mm3 (4.0-10.5)
[2020-04-06 18:15] LABS: ALBUMIN 3.9 g/dL (3.5-5.0); ALKALINE PHOSPHATASE 100 U/L (38-126); ANION GAP 7.8 MEQ/L (5-15); BLOOD UREA NITROGEN 9 mg/dL (9-20); CHLORIDE 101 mmol/L (98-107); Calcium 8.9 mg/dL (8.4-10.2); Carbon Dioxide 31 mmol/L (22-30); Creatinine 1 1.07 mg/dL (0.66-1.25); Glucose 141 mg/dL (74-106); MAGNESIUM 2.2 mg/dL (1.6-2.3); NT PRO BNP 2180 pg/mL (0-900); Potassium 3.4 mmol/L (3.5-5.1); SGOT/AST 111 U/L (17-59); SGPT/ALT 88 U/L (0-50); SODIUM 137 mmol/L (137-145); Total Protein 6.4 g/dL (6.3-8.2)
[2020-04-06] MEDS ORDERED: BABY ASPIRIN 81 MG CHEW PO ONE (18:21)
[2020-04-06 18:25] LABS: Appearance CLEAR (CLEAR); Bilirubin NEGATIVE (NEGATIVE); Blood NEGATIVE Ery/ul (0-5); Glucose >=500 mg/dL (NEGATIVE); Ketones NEGATIVE (NEGATIVE); Leukocyte Esterase NEGATIVE (NEGATIVE); Nitrite NEGATIVE (NEGATIVE); Protein,Urine Dip NEGATIVE (Negative); Specific Gravity 1.005 (1.005-1.025); Urobilinogen NEGATIVE mg/dL (0-1)
[2020-04-06] MEDS ORDERED: BABY ASPIRIN 81 MG CHEW ONE (18:32)
[2020-04-06] MEDS ORDERED: LEVOFLOXACIN 750MG/150ML D5W 750 MG/150 ML BAG IV STA (18:43)
[2020-04-06] MEDS ORDERED: LEVOFLOXACIN 750MG/150ML D5W 750 MG/150 ML BAG IV ONE (18:47)
[2020-04-06] MEDS ORDERED: HYDROCODONE-ACETAMIN 2.5-108/5 ML SOLUTION PO STA (18:48)
[2020-04-06] MEDS ORDERED: HYDROCODONE-ACETAMIN 2.5-108/5 ML SOLUTION ONE (18:50)
--- NOTE | 2020-04-06 18:51 | ERPHSYRPT ---
- History of Present Illness Time Seen by Provider: 04/06/20 17:20 Source: patient, EMS Exam Limitations: no limitations Patient Subjective Stated Complaint: shortness of breath Triage Nursing Assessment: Pt brought to the ER by EMS, pt on 4L NC, h ypertensive, crackles and wheezes heard throughout his lungs, hx of chf and copd, pulses normal, dry unproductive cough, admitted last week for copd exacerbation, skin n/w/d, denies pain Physician History: 65 years old male with history of coronary artery disease status post CABG/stenting, COPD with chronic respiratory failure on 3 L oxygen, diabetes mellitus, hypertension, congestive heart failure, on Eliquis who was recently admitted at [facility] first COPD exacerbation presented in the ER with worsening shortness of breath since morning with wheezing and rattling all over and no relief despite taking neb treatments. On EMS arrival patient oxygen saturation was in low 80s on 3 L, was given neb treatment and steroid and increased O2 to 4 L with improvement in saturation and work of breathing. On presentation in the ER patient is still tachypneic and using accessory muscles. Is complaining of generalized chest tightness and pressure with worsening dry cough. Denies any fever or chills. Has bilateral lower extremity swelling which according to patient is improving and is taking diuretics. Timing/Duration: today, gradual onset, worse Activities at Onset: rest Severity of Dyspnea-Max: severe Severity of Dyspnea-Current: moderate Possible Cause: frequent episodes Modifying Factors: Improves With: albuterol nebulizer, coughing Associated Symptoms: cough, chest pain/discomfort, wheezing, heaviness Allergies/Adverse Reactions: ceftriaxone [From Rocephin] Allergy (Severe, Verified 04/06/20 17:32) Anaphylactic Reaction Penicillins Allergy (Unknown, Verified 04/06/20 17:32) Home Medications: Isosorbide Mononitrate 30 mg [Imdur 30 MG] 60 mg PO DAILY 10/08/15 [History] Atorvastatin Calcium [Lipitor] 80 mg PO HS 10/09/15 [History] Nitroglycerin [Nitrostat] 0.4 mg SL UD 10/09/15 [History] lisinopriL [Zestril] 20 mg PO DAILY 10/09/15 [History] Albuterol 2.5 mg/0.5 ml [PROVENTIL Solution 2.5 MG/0.5 ML] 2.5 mg IH Q12H PRN PRN 04/04/18 [History] Fenofibrate 50 mg PO DAILY 04/04/18 [History] Ranolazine 500 MG [Ranexa 500 MG] 500 mg PO BID 04/04/18 [History] Umeclidinium Brm/Vilanterol Tr [Anoro Ellipta 62.5-25 Mcg INH] 1 each IH DAILY 04/04/18 [History] Apixaban [Eliquis] 5 mg PO BID 10/18/18 [History] Bumetanide 1 mg [Bumex 1 mg] 2 mg PO BID 10/18/18 [History] Glipizide 2.5 mg [Glucotrol Xl 2.5 MG] 2.5 mg PO DAILY 10/18/18 [History] Tamsulosin HCl 0.4 mg [Flomax 0.4 MG] 0.4 mg PO DAILY 10/18/18 [History] Allopurinol 300 mg [Zyloprim 300 mg] 300 mg PO DAILY 01/08/19 [History] Ergocalciferol (Vitamin D2) [Vitamin D2] 50,000 unit PO WEEKLY 01/08/19 [History] Meloxicam 7.5 mg [Mobic 7.5 MG] 7.5 mg PO DAILY 01/08/19 [History] Metoprolol Tartrate 25 mg [Lopressor 25MG Tab] 25 mg PO BID 01/08/19 [History] Aspirin 81 gm Chew [Baby Aspirin 81 mg Chew] 81 mg PO DAILY 04/01/20 [History] Prednisone [Jerrell] 2 mg PO DAILY 04/01/20 [History] Hx Tetanus, Diphtheria Vaccination/Date Given: No Hx Influenza Vaccination/Date Given: Yes Hx Pneumococcal Vaccination/Date Given: Yes Travel Risk - International Travel Have you traveled outside of the country in past 3 weeks: No - Coronavirus Screening Are you exhibiting any of the following symptoms?: No Symptoms: Shortness of Breath Close contact with a COVID-19 positive Pt in past 14-21 Days: No - Review of Systems Constitutional: Fatigue, Weakness Eyes: No Symptoms Ears, Nose, & Throat: No Symptoms Respiratory: Cough, Dyspnea, Dyspnea on Exertion (GONZALEZ), Wheezing Cardiac: Chest Pain Abdominal/Gastrointestinal: No Symptoms Genitourinary Symptoms: No Symptoms Musculoskeletal: No Symptoms Skin: No Symptoms Neurological: No Symptoms Psychological: No Symptoms Endocrine: No Symptoms Hematologic/Lymphatic: No Symptoms Immunological/Allergic: No Symptoms - Past Medical History Pertinent Past Medical History: Yes Neurological History: No Pertinent History ENT History: No Pertinent History Cardiac History: Arrhythmia, Congestive Heart Failure, Coronary Artery Disease, High Cholesterol, Hypertension, Myocardial Infarction ([place]), Peripheral Vascular Disease Respiratory History: CHF, COPD Endocrine Medical History: No Pertinent History, Diabetes Type II Musculoskeletal History: No Pertinent History GI Medical History: No Pertinent History History: No Pertinent History Psycho-Social History: Anxiety, Depression Male Reproductive Disorders: No Pertinent History - Past Surgical History Past Surgical History: Yes (heart stent 2018) Neuro Surgical History: No Pertinent History Cardiac: CABG, Cardiac Catheterization, Cardiac Stent Respiratory: No Pertinent History Gastrointestinal: No Pertinent History Genitourinary: No Pertinent History Musculoskeletal: No Pertinent History Male Surgical History: No Pertinent History Other Surgical History: stents in both legs for PAD - Social History Smoking Status: Former smoker How long have you smoked: 40 years Exposure to second hand smoke: No Drug Use: none Patient Lives Alone: No - Nursing Vital Signs Nursing Vital Signs: Initial Vital Signs Temperature 98.5 F 04/06/20 17:16 Pulse Rate 71 04/06/20 17:16 Respiratory Rate 22 04/06/20 17:16 Blood Pressure 201/79 04/06/20 17:16 O2 Sat by Pulse Oximetry 97 04/06/20 17:16 Pain Scale Pain Intensity 0 - Physical Exam General Appearance: moderate distress, alert Eye Exam: PERRL/EOMI, eyes nml inspection Ears, Nose, Throat Exam: hearing grossly normal, normal ENT inspection, pharyngeal erythema Neck Exam: normal inspection, non-tender, supple, full range of motion Respiratory Exam: diminished breath sounds, accessory muscle use, crackles/rales, wheezing Cardiovascular/Chest Exam: normal heart sounds, regular rate/rhythm Abdominal/Gastrointestinal Exam: soft, No tenderness Extremity Exam: pedal edema, swelling Neurologic Exam: alert, oriented x 3, cooperative Skin Exam: normal color SpO2 Interpretation: O2 applied SpO2: 93 O2 Delivery: Nasal Cannula - Course Nursing assessment & vital signs reviewed: Yes EKG Interpreted by Me: RATE (67), Sinus Rhythm, NORMAL AXIS, prolonged QT interval, Q-wave (Inferior), Other (Nonspecific T wave changes) Ordered Tests: Active Orders 24 hr Category Date Time Status Government Affairs Specialist STAT Care 04/06/20 17:27 Active EKG-ER Only STAT Care 04/06/20 17:26 Active IV Insertion STAT Care 04/06/20 17:26 Active IV Insertion-2nd Peripheral STAT Care 04/06/20 17:38 Active Oxygen-ED Only Nasal Cannula 4 lpm Care 04/06/20 17:26 Active Pulse Oximetry (ED) STAT Care 04/06/20 17:41 Active CHEST 1 VIEW (PORTABLE) Stat Exams 04/06/20 17:27 Taken ARTERIAL BLOOD GASES Stat Lab 04/06/20 17:26 Completed BLOOD CULTURE Stat Lab 04/06/20 17:45 Received CBC W DIFF Stat Lab 04/06/20 17:40 Completed CMP Stat Lab 04/06/20 17:40 Completed Lactic Acid Stat Lab 04/06/20 17:26 Completed MAGNESIUM Stat Lab 04/06/20 17:40 Completed NT PRO BNP Stat Lab 04/06/20 17:40 Completed TROPONIN Q3H Lab 04/06/20 17:40 Completed TROPONIN Q3H Lab 04/06/20 20:30 Ordered TROPONIN Q3H Lab 04/06/20 23:30 Ordered TROPONIN Q3H Lab 04/07/20 02:30 Ordered TROPONIN Q3H Lab 04/07/20 05:30 Ordered UA W/RFX UR CULTURE Stat Lab 04/06/20 18:00 Completed Respiratory Therapy Assessment DAILY RT 04/06/20 17:55 Completed Medication Summary Generic Name Dose Route Start Last Admin Trade Name Freq PRN Reason Stop Dose Admin Levofloxacin/Dextrose 750 mg in 150 mls @ 100 mls/hr 04/06/20 18:43 04/06/20 18:51 Levofloxacin 750mg/150ml D5w IV 04/06/20 20:12 100 ml/hr STAT STA 100 mls/hr Administration Discontinued Medications Generic Name Dose Route Start Last Admin Trade Name Freq PRN Reason Stop Dose Admin Hydrocodone Bitart/Acetaminophen 10 ml 04/06/20 18:48 04/06/20 18:51 Hydrocodone-Acetamin 2.5-108/5 Ml Solution PO 04/06/20 18:49 10 ml STAT STA Administration Hydrocodone Bitart/Acetaminophen Confirm 04/06/20 18:50 Hydrocodone-Acetamin 2.5-108/5 Ml Solution Administered 04/06/20 18:51 Dose 10 ml .ROUTE .STK-MED ONE Albuterol/Ipratropium 3 ml 04/06/20 17:26 04/06/20 17:35 Duoneb 0.5-3 Mg/3 Ml Neb IH 04/06/20 17:27 3 ml STAT ONE Administration Albuterol/Ipratropium Confirm 04/06/20 17:27 Duoneb 0.5-3 Mg/3 Ml Neb Administered 04/06/20 17:28 Dose 3 ml IH .STK-MED ONE Aspirin 324 mg 04/06/20 18:21 04/06/20 18:22 Baby Aspirin 81 Mg Chew PO 04/06/20 18:22 324 mg STAT ONE Administration Aspirin Confirm 04/06/20 18:32 Baby Aspirin 81 Mg Chew Administered 04/06/20 18:33 Dose 324 mg .ROUTE .STK-MED ONE Furosemide 40 mg 04/06/20 17:26 04/06/20 17:33 Lasix 40 Mg/4 Ml IV 04/06/20 17:27 40 mg STAT ONE Administration Furosemide Confirm 04/06/20 17:32 Lasix 40 Mg/4 Ml Administered 04/06/20 17:33 Dose 40 mg .ROUTE .STK-MED ONE Levofloxacin/Dextrose Confirm 04/06/20 18:47 Levofloxacin 750mg/150ml D5w Administered 04/06/20 18:48 Dose 750 mg in 150 mls @ ud IV .STK-MED ONE Nitroglycerin 1 gm 04/06/20 17:26 04/06/20 17:34 Nitro-Bid 2% Ud Packets TOP 04/06/20 17:27 1 gm STAT ONE Administration Nitroglycerin Confirm 04/06/20 17:32 Nitro-Bid 2% Ud Packets Administered 04/06/20 17:33 Dose 1 gm .ROUTE .STK-MED ONE Lab/Rad Data: Laboratory Result Diagrams 04/06/20 17:40 04/06/20 17:40 Laboratory Results 08/01/20 08/01/20 08/01/20 Range/Units 18:00 17:40 17:40 WBC (4.0-10.5) K/mm3 RBC (4.1-5.6) M/mm3 Hgb (12.5-18.0) gm/dl Hct (42-50) % MCV (78-100) fl MCH (26-32) pg MCHC (32-36) g/dl RDW (11.5-14.0) % Plt Count (150-450) K/mm3 MPV (7.5-11.0) fl Gran % (36.0-66.0) % Eos # (Auto) (0-0.5) Absolute Lymphs (auto) (1.0-4.6) Absolute Monos (auto) (0.0-1.3) Lymphocytes % (24.0-44.0) % Monocytes % (0.0-12.0) % Eosinophils % (0.00-5.0) % Basophils % (0.0-0.4) % Absolute Granulocytes (1.4-6.9) Basophils # (0-0.4) Puncture Site pCO2 (35-45) mmHg pO2 (75-100) mmHg Base Excess (-2.0-2.0) O2 Saturation (94-100) g/dF ABG pH (7.35-7.45) ABG HCO3 (22-28) ABG O2 Sat (Measured) (95-100) % Peterson Test A-a Gradient a/A Ratio Hemoglobin Carboxyhemoglobin (0.0-6.9) % THgb Methemoglobin (1.4-1.5) % Potassium 3.4 L (3.5-5.1) Temperature C POC O2 Flow Rate % Sodium 137 (137-145) mmol/L Chloride 101 (98-107) mmol/L Carbon Dioxide 31 H (22-30) mmol/L Anion Gap 7.8 (5-15) MEQ/L BUN 9 (9-20) mg/dL Creatinine 1.07 (0.66-1.25) mg/dL Estimated GFR > 60.0 ML/MIN Glucose 141 H (74-106) mg/dL Lactic Acid (0.4-2.0) Calcium 8.9 (8.4-10.2) mg/dL Magnesium 2.2 (1.6-2.3) mg/dL Total Bilirubin 0.80 (0.2-1.3) mg/dL AST 111 H (17-59) U/L ALT 88 H (0-50) U/L Alkaline Phosphatase 100 (38-126) U/L Troponin I 0.212 H* (0.000-0.034) ng/mL NT-Pro-B Natriuret Pep 2180 H (0-900) pg/mL Serum Total Protein 6.4 (6.3-8.2) g/dL Albumin 3.9 (3.5-5.0) g/dL Urine Color STRAW (YELLOW) Urine Appearance CLEAR (CLEAR) Urine pH 7.0 (5-6) Ur Specific [place] 1.005 (1.005-1.025) Urine Protein NEGATIVE (Negative) Urine Ketones NEGATIVE (NEGATIVE) Urine Blood NEGATIVE (0-5) Jonathon/ul Urine Nitrite NEGATIVE (NEGATIVE) Urine Bilirubin NEGATIVE (NEGATIVE) Urine Urobilinogen NEGATIVE (0-1) mg/dL Ur Leukocyte Esterase NEGATIVE (NEGATIVE) Urine WBC (Auto) NONE (0-5) /HPF Urine RBC (Auto) NONE (0-2) /HPF U Epithel Cells (Auto) NONE (FEW) /HPF Urine Bacteria (Auto) NONE (NEGATIVE) /HPF Urine Culture Reflexed NO (NO) Urine Glucose >=500 (NEGATIVE) mg/dL 04/06/20 04/06/20 Range/Units 17:40 17:26 WBC 12.6 H (4.0-10.5) K/mm3 RBC 4.56 (4.1-5.6) M/mm3 Hgb 13.3 (12.5-18.0) gm/dl Hct 41.1 L (42-50) % MCV 90.1 (78-100) fl MCH 29.2 (26-32) pg MCHC 32.4 (32-36) g/dl RDW 15.4 H (11.5-14.0) % Plt Count 207 (150-450) K/mm3 MPV 10.6 (7.5-11.0) fl Gran % 73.3 H (36.0-66.0) % Eos # (Auto) 0.80 H (0-0.5) Absolute Lymphs (auto) 1.65 (1.0-4.6) Absolute Monos (auto) 0.88 (0.0-1.3) Lymphocytes % 13.1 L (24.0-44.0) % Monocytes % 7.0 (0.0-12.0) % Eosinophils % 6.3 H (0.00-5.0) % Basophils % 0.3 (0.0-0.4) % Absolute Granulocytes 9.24 H (1.4-6.9) Basophils # 0.04 (0-0.4) Puncture Site LEFT BRACHIAL pCO2 40 (35-45) mmHg pO2 91 (75-100) mmHg Base Excess 4.2 H (-2.0-2.0) O2 Saturation 95.2 (94-100) g/dF ABG pH 7.46 H (7.35-7.45) ABG HCO3 28.4 H (22-28) ABG O2 Sat (Measured) 98.1 (95-100) % Peterson Test NOT APPLICABLE A-a Gradient 116 a/A Ratio 0.44 Hemoglobin 13.1 Carboxyhemoglobin 1.8 (0.0-6.9) % THgb Methemoglobin 1.2 L (1.4-1.5) % Potassium 3.4 L (3.5-5.1) Temperature 37.0 C POC O2 Flow Rate 36 % Sodium (137-145) mmol/L Chloride (98-107) mmol/L Carbon Dioxide (22-30) mmol/L Anion Gap (5-15) MEQ/L BUN (9-20) mg/dL Creatinine (0.66-1.25) mg/dL Estimated GFR ML/MIN Glucose (74-106) mg/dL Lactic Acid 1.6 (0.4-2.0) Calcium (8.4-10.2) mg/dL Magnesium (1.6-2.3) mg/dL Total Bilirubin (0.2-1.3) mg/dL AST (17-59) U/L ALT (0-50) U/L Alkaline Phosphatase (38-126) U/L Troponin I (0.000-0.034) ng/mL NT-Pro-B Natriuret Pep (0-900) pg/mL Serum Total Protein (6.3-8.2) g/dL Albumin (3.5-5.0) g/dL Urine Color (YELLOW) Urine Appearance (CLEAR) Urine pH (5-6) Ur Specific [place] (1.005-1.025) Urine Protein (Negative) Urine Ketones (NEGATIVE) Urine Blood (0-5) Jonathon/ul Urine Nitrite (NEGATIVE) Urine Bilirubin (NEGATIVE) Urine Urobilinogen (0-1) mg/dL Ur Leukocyte Esterase (NEGATIVE) Urine WBC (Auto) (0-5) /HPF Urine RBC (Auto) (0-2) /HPF U Epithel Cells (Auto) (FEW) /HPF Urine Bacteria (Auto) (NEGATIVE) /HPF Urine Culture Reflexed (NO) Urine Glucose (NEGATIVE) mg/dL - Progress Progress: improved, re-examined Air Movement: fair Progress Note: 04/06/20 19:04 65 years old is evaluated for respiratory failure. He is given DuoNeb along with Lasix and Nitropaste, on reevaluation his breathing is better but still wheezing. Is also given a dose of antibiotic as well. Chest x-ray did not show any focal pneumonia. Blood pressure was elevated 200s on presentation and improved to 180s now. Still having some pressure in the chest. EKG did not show any acute ischemic changes. Initial troponins are 0.212. I believe patient has a combination of respiratory and congestive heart failure causing elevation in troponins. I have discussed with Dr. Almendarez, recommended transfer to facility with cardiology services. I have discussed with [facility] and patient is auto accepted under Dr. Pena. Plan discussed with patient understand and agrees with it. Blood Culture(s) Obtained: Yes Antibiotics given: Yes Discussed with : Sarthak Will see patient in: other Counseled pt/family regarding: lab results, diagnosis, rad results - Departure Departure Disposition: Transfer Clinical Impression: Acute exacerbation of chronic obstructive pulmonary disease (COPD), NSTEMI (non-ST elevated myocardial infarction) CHF (congestive heart failure) Qualifiers: Heart failure type: unspecified Heart failure chronicity: acute on chronic Qualified Code(s): I50.9 - Heart failure, unspecified Condition: Stable Critical Care Time: Yes Critical Care Time(excluding separately billable procedures): Critical 30-74 mins Referrals: BREANNE CORTEZ [Primary Care Provider] - Instructions: Heart Failure, Chronic Obstructive Pulmonary Disease
[2020-04-06 19:07] VITALS: BP 161/99
[2020-04-06] MEDS ORDERED: PROVENTIL 2.5 MG/3 ML NEB IH ONE ×2 (19:12)
[2020-04-06 19:18] VITALS: PULSE 73; O2SAT 91
--- NOTE | 2020-04-06 21:14 | XRAY ---
Indication: Pneumonia. Comparison: April 01, 2020. Portable chest remains clear. Heart and mediastinal structures within normal limits again with CABG surgery. No new/acute cardiopulmonary abnormalities.
== END 2020-04-06 19:25 | disposition short-term general hospital (02) ==
LOC: ED 17:14
DX: J44.1 Chronic obstructive pulmonary disease with (acute) exacerbation (principal); I21.4 Non-ST elevation (NSTEMI) myocardial infarction; I50.9 Heart failure, unspecified; I25.810 Atherosclerosis of coronary artery bypass graft(s) without angina pectoris; J96.10 Chronic respiratory failure, unspecified whether with hypoxia or hypercapnia; Z99.81 Dependence on supplemental oxygen; I10 Essential (primary) hypertension; E11.9 Type 2 diabetes mellitus without complications; Z79.01 Long term (current) use of anticoagulants; Z79.899 Other long term (current) drug therapy; I73.9 Peripheral vascular disease, unspecified; F41.9 Anxiety disorder, unspecified; F32.9 Major depressive disorder, single episode, unspecified; Z72.0 Tobacco use
CPT/HCPCS: 36000; 36415; 36600; 71045; 80053; 81001; 82375; 82803; 83605; 83735; 83880; 84484; 85025; 87040; 93005; 93041; 94640; 94760; 96365; 96374; 99285; 99291; J1940; J1956; J7609; A9270-GY